=== PATIENT | female | born 1965 ===

== ENCOUNTER 2021-06-19 23:39 | Emergency (ER) | payer OTHER, SELFPAY ==
[2021-06-19 23:57] VITALS: BP 151/73; PULSE 99; RESP 18; TEMP 37.1; O2SAT 100; BMI 33.6
[2021-06-20 02:00] VITALS: BP 120/68; PULSE 66; RESP 16; TEMP 36.8; O2SAT 96
--- NOTE | 2021-06-20 04:20 | ECG_ITS ---
Test Reason : high bp Blood Pressure : / mmHG Vent. Rate : 070 BPM Atrial Rate : 070 BPM P-R Int : 162 ms QRS Dur : 084 ms QT Int : 426 ms P-R-T Axes : 053 -27 056 degrees QTc Int : 460 ms Normal sinus rhythm Normal ECG When compared with ECG of 15-JUL-2018 13:31, No significant change was found Referred By: Generic ED Physician Electronically Signed By:MARYCHUY CISNEROS
[2021-06-20 04:24] VITALS: BP 128/71; PULSE 75; RESP 16; TEMP 36.7; O2SAT 95
[2021-06-20 04:39] LABS: MANUAL DIFF FLAG NO
[2021-06-20 04:40] LABS: Appearance Urine CLEAR; Basophils Percent Auto 0.3 % (0-2); Color Urine YELLOW; Eosinophils Absolute Auto 0.2 X10*3/uL (0.0-0.4); Eosinophils Percent Auto 2.1 % (0-4); Glucose Urine UA NEG (NEG); Hematocrit 36.9 % (37.0-47.0); Hemoglobin 11.7 g/dl (12.0-16.0); Imm Gran Abs Auto 0.02 X10*3/uL (0.00-0.03); Imm Gran Pct Auto 0.2 % (0.0-0.4); Leukocyte Esterase Urine NEG (NEG); Lymphocytes Absolute Auto 3.6 X10*3/uL (1.2-4.9); Lymphocytes Percent Auto 38.3 % (20-40); Mean Corpuscular HGB Conc 31.7 g/dl (31.0-35.0); Mean Corpuscular Hemoglobin 26.6 pg (27.0-33.0); Mean Corpuscular Volume 83.9 fL (80.0-98.0); Monocytes Absolute Auto 0.6 X10*3/uL (0.1-1.2); Monocytes Percent Auto 6.8 % (2-11); Neutrophils Absolute Auto 4.9 x10*3/uL (2.0-8.3); Neutrophils Percent Auto 52.3 % (45-73); Nitrite Urine NEG (NEG); Platelet Count 248 X10*3/uL (160-400); UACC Culture Trigger NO; Urine Blood 1+ (NEG); Urine Ketones NEG (NEG); Urine Protein NEG (NEG-TRACE); White Blood Count 9.4 X10*3/uL (4.8-10.8)
[2021-06-20 04:45] LABS: Prothrombin Time 11.3 SEC (9.9-13.0)
[2021-06-20 04:48] LABS: Bacteria Urine 2+ /LPF; Calcium Oxalate Crystals Urine 3+ /LPF; Mucus Urine 1+ /LPF; RBC Urine 0-2 /HPF (0); Squamous Epithelial Cell Urine 1+ /LPF; WBC Urine 0-2 /HPF (0-4)
[2021-06-20 04:59] LABS: Alanine Aminotransferase 26 U/L (0-31); Alkaline Phosphatase 111 U/L (39-117); Anion Gap 13 (12-20); Aspartate Amino Transferase 18 U/L (5-31); Bilirubin Total 0.3 mg/dL (0.0-1.0); Blood Urea Nitrogen 12 mg/dL (9-16); Calcium 9.2 mg/dL (8.4-10.2); Carbon Dioxide 24 mmol/L (22-29); Chloride 107 mmol/L (96-108); Estimated Glomerular Filt Rate > 60; Glucose Random 113 mg/dL (60-115); Sodium 140 mmol/L (135-145); Total Protein 6.7 g/dL (6.5-8.0)
--- NOTE | 2021-06-20 05:11 | ED_ITS ---
HPI - General Adult General Chief complaint: General Medical Stated complaint: Blood in stool Time Seen by Provider: 06/20/21 05:11 Source: patient and family (Daughter) Mode of arrival: ambulatory History of Present Illness HPI narrative: 56-year-old female with complaints rectal bleeding since Sunday, patient denies any history of constipation and states that she has had painless rectal bleeding with defecation denies any swelling of underwear. Patient denies any abdominal pain, nausea, vomiting. Patient does state that she has an appointment with GI this for chronic nausea after surgery for her hiatal hernia. She denies any dizziness or palpitations at this time. In addition, patient complaints ?tailbone pain and denies any numbness/tingling/weakness into either lower extremity. Related Data Allergies Allergy/AdvReac Type Severity Reaction Status Date / Time amoxicillin [From AUGMENTIN] Allergy Mild HIVES Unverified 10/23/19 18:46 azithromycin [From ZITHROMAX] Allergy Mild HIVES Unverified 10/23/19 18:46 clavulanic acid Allergy Mild HIVES Unverified 10/23/19 18:46 [From AUGMENTIN] doxycycline [DOXYCYCLINE] Allergy Mild HIVES Unverified 10/23/19 18:46 oxycodone [OXYCODONE] Allergy Mild CHEST PAIN Unverified 10/23/19 18:46 Penicillins [PCN] Allergy Mild HIVES Unverified 10/23/19 18:46 acetaminophen [From VICODIN] Allergy Unknown UNKNOWN Unverified 10/23/19 18:46 hydrocodone [From VICODIN] Allergy Unknown UNKNOWN Unverified 10/23/19 18:46 Review of Systems Review of Systems: Pertinent positives and negatives as stated in HPI 10 point review of systems is otherwise negative. [facility] Past Medical History Source: nursing notes reviewed Social History Social History Advance Directives: No Physical Exam ED Vital Signs: Vital Signs - 24 hr 06/19/21 23:57 06/20/21 02:00 06/20/21 04:24 Temperature 98.7 F 98.2 F 98.0 F Pulse Rate 99 66 75 Respiratory Rate 18 16 16 Blood Pressure 151/73 H 120/68 128/71 Pulse Oximetry 100 96 95 06/20/21 06:00 Temperature 98.0 F Pulse Rate 74 Respiratory Rate 16 Blood Pressure 117/72 Pulse Oximetry 97 BMI result Body Mass Index 33.6 VITAL SIGNS: Reviewed. GENERAL: Well developed, well nourished, in no acute distress. HEAD: Normocephalic/atraumatic EYES: PERRLA, EOMI, no conjunctival pallor EARS: Ext canals without abnormality OROPHARYNX: no oral lesions noted, posterior pharynx clear LUNGS: Normal breath sounds. No adventitious sounds or accessory muscle use. SpO2<100> CARDIOVASCULAR: Regular rate and rhythm without noted murmurs ABDOMEN: Soft, non-tender, non-distended with bowel sounds. RECTAL: There are no external hemorrhoids, brown stool, good rectal tone. SKIN: Inspection of the skin reveals no rashes NEUROLOGIC: Alert and oriented x 4. Strength and sensation to light touch were grossly intact x 4. Course Course Course Narrative: 56-year-old female with history and clinical presentation after review of all investigations consistent with likely internal hemorrhoids with the painless bleeding. Patient is currently asymptomatic for anemia although is noted to have a mild decreased from baseline on her hemoglobin. Patient is otherwise reassured that she can follow-up with her GI appointment, she also has an appointment provided by her primary care provider for this Sunday to further evaluate her tailbone pain with a pelvic CT. Patient was given strict return precautions regarding the amount of bleeding as well as whether not she has pain. Medical Decision Making Lab Data Result diagrams: 06/20/21 04:35 06/20/21 04:35 Labs: Lab Results 06/20/21 06/20/21 06/20/21 Range/Units 04:35 04:35 04:35 WBC 9.4 (4.8-10.8) X10*3/uL RBC 4.40 (4.20-5.50) X10*6/uL Hgb 11.7 L (12.0-16.0) g/dl Hct 36.9 L (37.0-47.0) % MCV 83.9 (80.0-98.0) fL MCH 26.6 L (27.0-33.0) pg MCHC 31.7 (31.0-35.0) g/dl RDW 14.0 (11.0-16.0) % Plt Count 248 (160-400) X10*3/uL MPV 11.0 (9.4-12.3) fL Immature Gran % (Auto) 0.2 (0.0-0.4) % Neut % (Auto) 52.3 (45-73) % Lymph % (Auto) 38.3 (20-40) % [place] % (Auto) 6.8 (2-11) % Eos % (Auto) 2.1 (0-4) % Baso % (Auto) 0.3 (0-2) % Lymph # (Auto) 3.6 (1.2-4.9) X10*3/uL [place] # (Auto) 0.6 (0.1-1.2) X10*3/uL Eos # (Auto) 0.2 (0.0-0.4) X10*3/uL Baso # (Auto) 0.0 (0.0-0.2) X10*3/uL Abs Immat Gran (auto) 0.02 (0.00-0.03) X10*3/uL Absolute Neuts (auto) 4.9 (2.0-8.3) x10*3/uL Absolute Nucleated RBC 0.000 (0.0-0.012) X10*3/uL Nucleated RBC % (auto) 0.0 (0.0-0.2) /100WBC PT 11.3 (9.9-13.0) SEC INR 1.0 (0.9-1.1) Sodium (135-145) mmol/L Potassium (3.3-5.1) mmol/L Chloride (96-108) mmol/L Carbon Dioxide (22-29) mmol/L Anion Gap (12-20) BUN (9-16) mg/dL Creatinine (0.5-1.4) mg/dL Estim Creat Clear Calc Estimated GFR Random Glucose (60-115) mg/dL Calcium (8.4-10.2) mg/dL Total Bilirubin (0.0-1.0) mg/dL AST (5-31) U/L ALT (0-31) U/L Alkaline Phosphatase (39-117) U/L Total Protein (6.5-8.0) g/dL Albumin (3.5-5.0) g/dL Urine Color YELLOW Urine Appearance CLEAR Urine pH 6.0 (5.0-8.0) Ur Specific [place] 1.020 (1.005-1.025) Urine Protein NEG (NEG-TRACE) MG/DL Urine Glucose (UA) NEG (NEG) MG/DL Urine Ketones NEG (NEG) MG/DL Urine Blood 1+ H (NEG) Urine Nitrite NEG (NEG) Ur Leukocyte Esterase NEG (NEG) Urine RBC 0-2 (0) /HPF Urine WBC 0-2 (0-4) /HPF Ur Squamous Epith Cells 1+ /LPF Calcium Oxalate Crystal 3+ /LPF Urine Bacteria 2+ /LPF Urine Mucus 1+ /LPF 06/20/21 Range/Units 04:35 WBC (4.8-10.8) X10*3/uL RBC (4.20-5.50) X10*6/uL Hgb (12.0-16.0) g/dl Hct (37.0-47.0) % MCV (80.0-98.0) fL MCH (27.0-33.0) pg MCHC (31.0-35.0) g/dl RDW (11.0-16.0) % Plt Count (160-400) X10*3/uL MPV (9.4-12.3) fL Immature Gran % (Auto) (0.0-0.4) % Neut % (Auto) (45-73) % Lymph % (Auto) (20-40) % [place] % (Auto) (2-11) % Eos % (Auto) (0-4) % Baso % (Auto) (0-2) % Lymph # (Auto) (1.2-4.9) X10*3/uL [place] # (Auto) (0.1-1.2) X10*3/uL Eos # (Auto) (0.0-0.4) X10*3/uL Baso # (Auto) (0.0-0.2) X10*3/uL Abs Immat Gran (auto) (0.00-0.03) X10*3/uL Absolute Neuts (auto) (2.0-8.3) x10*3/uL Absolute Nucleated RBC (0.0-0.012) X10*3/uL Nucleated RBC % (auto) (0.0-0.2) /100WBC PT (9.9-13.0) SEC INR (0.9-1.1) Sodium 140 (135-145) mmol/L Potassium 4.0 (3.3-5.1) mmol/L Chloride 107 (96-108) mmol/L Carbon Dioxide 24 (22-29) mmol/L Anion Gap 13 (12-20) BUN 12 (9-16) mg/dL Creatinine 0.74 (0.5-1.4) mg/dL Estim Creat Clear Calc 85.0 Estimated GFR > 60 Random Glucose 113 (60-115) mg/dL Calcium 9.2 (8.4-10.2) mg/dL Total Bilirubin 0.3 (0.0-1.0) mg/dL AST 18 (5-31) U/L ALT 26 (0-31) U/L Alkaline Phosphatase 111 (39-117) U/L Total Protein 6.7 (6.5-8.0) g/dL Albumin 4.0 (3.5-5.0) g/dL Urine Color Urine Appearance Urine pH (5.0-8.0) Ur Specific [place] (1.005-1.025) Urine Protein (NEG-TRACE) MG/DL Urine Glucose (UA) (NEG) MG/DL Urine Ketones (NEG) MG/DL Urine Blood (NEG) Urine Nitrite (NEG) Ur Leukocyte Esterase (NEG) Urine RBC (0) /HPF Urine WBC (0-4) /HPF Ur Squamous Epith Cells /LPF Calcium Oxalate Crystal /LPF Urine Bacteria /LPF Urine Mucus /LPF ECG Data Attestation: I personally reviewed and interpreted this ECG as follows: Prior ECG tracings: available for review Interpretation: NSR, HR-70, no STEMI, [place]/QRS/QTC is within normal limits. Discharge Plan Discharge Clinical Impression: Bleeding hemorrhoid Patient Disposition: Home, Self-Care Instructions: Hemorrhoids (ED) Additional Instructions: 1. Resume all home medications as prescribed. 2. Keep your scheduled appointments with GI and the CT scan. 3. Follow-up with your primary care provider in the next 1-2 days for re- evaluation. Return to the ER for worsening rectal bleeding/rectal pain and/or abdominal pain. Referrals: Physician,Unknown J [Primary Care Provider] -
[2021-06-20 06:00] VITALS: BP 117/72; PULSE 74; RESP 16; TEMP 36.7; O2SAT 97
[2021-06-20 07:36] LABS: OBS Int Ctl Valid YES; OBS1 NEGATIVE (NEGATIVE)
== END 2021-06-20 07:52 | disposition home or self-care (01) ==
PROVIDERS: Emergency Provider Student in an Organized Health Care Education/Training Program
DX: K64.8 Other hemorrhoids (principal); D64.9 Anemia, unspecified; M53.3 Sacrococcygeal disorders, not elsewhere classified
CPT/HCPCS: 36415; 80053; 81001; 82272; 85025; 85610; 93005; 99283

== ENCOUNTER 2021-10-06 20:39 | Emergency (ER) | payer OTHER, SELFPAY ==
--- NOTE | ~2021-10-06 | XR_ITS ---
EXAMINATION: XR HIP, RIGHT CLINICAL INFORMATION: Right hip and groin pain. COMPARISON: None TECHNIQUE: Single AP view the pelvis Two views of the right hip. FINDINGS: No acute fracture or dislocation. Pelvic ring intact. Mild bilateral sacroiliac arthrosis. Mild bilateral hip joint space narrowing. Small acetabular marginal osteophytes. Soft tissues unremarkable. XR/XR hip RT w [id number] IMPRESSION: No acute fracture or dislocation.
--- NOTE | ~2021-10-06 | CT_ITS ---
EXAMINATION: CT PELVIS WITHOUT CONTRAST CLINICAL INFORMATION: Rule out right femoral hernia COMPARISON: None TECHNIQUE: Helical scanning was performed with submillimeter collimation through the pelvis. Sagittal and coronal multiplanar 2-D reconstructions were obtained. This CT examination was performed using dose optimization techniques as appropriate, variously including the following: *Automated exposure control *Adjustment of mA and/or kV according to patient size (this includes techniques or standardized protocols for targeted exams where dose is matched to indication/reason for exam; i.e. extremities or head) *Use of iterative reconstruction technique DLP: 499 mGy-cm FINDINGS: No femoral or inguinal hernias. Tiny umbilical hernia. Imaged gastrointestinal tract unremarkable. Normal appendix. Hysterectomy. No adnexal abnormalities. No lymphadenopathy. No pelvic free fluid. No acute or suspicious osseous abnormalities. Previous laminectomies from L4-S3. Pelvic ring intact. Bilateral hip joints unremarkable. CT/CT pelvis wo IV con IMPRESSION: No femoral or inguinal hernia. Tiny umbilical hernia.
[2021-10-06 20:55] VITALS: BP 121/81; PULSE 75; RESP 18; TEMP 36.3; O2SAT 97; BMI 34.0
[2021-10-06 21:37] LABS: Appearance Urine Clear; Color Urine Yellow; Glucose Urine UA Negative (Negative); Leukocyte Esterase Urine Negative (Negative); Nitrite Urine Negative (Negative); Specific Gravity - Urine <= 1.005 (1.005-1.025); Urine Blood Negative (Negative); Urine Ketones Negative (Negative); Urine Protein Negative (Neg-Trace)
--- NOTE | 2021-10-07 02:15 | ED.GENADULT ---
HPI - General Adult General Chief complaint: General Medical Stated complaint: groan pain Time Seen by Provider: 10/07/21 01:12 Source: patient Mode of arrival: ambulatory Limitations: no limitations History of Present Illness HPI narrative: Patient comes to the emergency room complaining of right-sided groin pain for 5 days. Patient reports that she has been having chronic pain since 2010 but for the last 5 days, it has been getting worse. Patient denies any UTI symptoms, no trauma. Related Data Allergies Allergy/AdvReac Type Severity Reaction Status Date / Time amoxicillin [From AUGMENTIN] Allergy Mild HIVES Unverified 10/23/19 18:46 azithromycin [From ZITHROMAX] Allergy Mild HIVES Unverified 10/23/19 18:46 clavulanic acid Allergy Mild HIVES Unverified 10/23/19 18:46 [From AUGMENTIN] doxycycline [DOXYCYCLINE] Allergy Mild HIVES Unverified 10/23/19 18:46 oxycodone [OXYCODONE] Allergy Mild CHEST PAIN Unverified 10/23/19 18:46 Penicillins [PCN] Allergy Mild HIVES Unverified 10/23/19 18:46 acetaminophen [From VICODIN] Allergy Unknown UNKNOWN Unverified 10/23/19 18:46 hydrocodone [From VICODIN] Allergy Unknown UNKNOWN Unverified 10/23/19 18:46 Review of Systems Review of Systems: Constitutional : No Weight loss, No Fever, No Chills, No Night Sweats, No Fatigue, No Malaise ENT/Mouth : No Hearing loss, No Ear Pain, No Nasal Congestion, No Sinus Pain, No Hoarseness, No sore throat, No Rhinorrhea, No Swallowing Difficulty Eyes: No Eye Pain, No Swelling, No Redness, No Foreign Body, No Discharge, No Vision Changes Cardiovascular : No Chest Pain, No SOB, No Dyspnea on Exertion, No Orthopnea, No Edema, No Palpitations Respiratory : No Cough, No Sputum, No Wheezing, No Smoke Exposure, No Dyspnea Gastrointestinal : No Nausea, No Vomiting, No Diarrhea, No Constipation, No abdominal Pain, No Hematochezia, No Melena Genitourinary : no irregular bleeding, No Dysuria, No Urinary Frequency, No Hematuria, No Urinary Incontinence, No Urgency, No Flank Pain, No Urinary Flow Changes, No Hesitancy Musculoskeletal : Complaining of right-sided groin pain No joint pain, No Myalgias, No Joint Swelling Skin : No Skin Lesions, No rash Neuro : No Weakness, No Numbness, No Paresthesias, No Loss of Consciousness, No Dizziness, No Headache Psych : No Anxiety/Panic, No Depression, No SI/HI/AH/VH, No Social Issues, Heme/Lymph: No Bruising, No Bleeding,No Lymphadenopathy Endocrine : No Polyuria, No Polydipsia, No Temperature Intolerance [facility] Past Medical History Medical History Anxiety with depression Chronic GERD Hyperlipidemia Hypertension Tethered cord syndrome Social History Social History Advance Directives: No Advance Directives Information Provided: Yes Physical Exam ED Vital Signs: Vital Signs - 24 hr 10/06/21 20:55 10/07/21 02:18 Temperature 97.4 F 98.2 F Pulse Rate 75 66 Respiratory Rate 18 18 Blood Pressure 121/81 130/81 Pulse Oximetry 97 97 Oxygen Delivery Method Room Air Room Air BMI result Body Mass Index 34.0 Const Other: Appearance: Alert. Oriented X3. No acute distress. Eyes: Pupils equal, round and reactive to light. ENT: Pharynx normal. Neck: Normal inspection. Neck supple. No lymph nodes noted. No crepitus CVS: Normal heart rate and rhythm. Pulses normal. Normal S1 and S2 Respiratory: No respiratory distress. Breath sounds normal. No Wheezing. No rales Abdomen: Soft and nontender. No rigidity. No distention. Skin: Skin warm and dry. Normal skin color. Normal skin turgor. Extremities: No lower extremity edema. Chronic contracture of the right foot. Pain to palpation over the inguinal area, questionable palpable mass below the inguinal canal on the right side Neuro: Oriented X 3. No motor deficit. No sensory deficit. Moving all extremities. No slurred speech. CN 2 through 12 grossly intact Psych: calm, cooperative, normal affect Course Course Course Narrative: Patient complaining of pain in a specific area in the anterior thigh, approximately 5 cm x 5 cm just below the inguinal area. The whole leg does not hurt. Patient has no lower extremity edema, no pain to palpation in any other area of the leg, DVT not suspected. Hip x-rays are nondiagnostic. No acute fracture or dislocation. Patient does have a soft tissue mildly palpable lump below the right inguinal canal. A CT scan has been ordered to rule out right femoral inguinal hernia. CT scan is negative for inguinal or femoral hernias, patient has a small umbilical hernia, not incarcerated. Patient's pain is likely musculoskeletal. Instructed to follow-up with her primary care physician. Here in the emergency room. Patient received 1 dose of IV morphine. Patient states she has an appointment coming up with her primary care physician in 3 days, takes naproxen at home for pain. Medical Decision Making Lab Data Labs: Lab Results 10/06/21 Range/Units 21:15 Urine Color Yellow Urine Appearance Clear Urine pH 7.0 (5.0-9.0) Ur Specific [place] <= 1.005 (1.005-1.025) Urine Protein Negative (Neg-Trace) mg/dL Urine Glucose (UA) Negative (Negative) mg/dL Urine Ketones Negative (Negative) mg/dL Urine Blood Negative (Negative) Urine Nitrite Negative (Negative) Ur Leukocyte Esterase Negative (Negative) Discharge Plan Discharge Clinical Impression: Leg pain Patient Disposition: Home, Self-Care Instructions: Leg Pain (ED) Additional Instructions: Please follow-up with your primary care physician tomorrow. If you have any worsening or new symptoms, please return to the emergency room or call 911
[2021-10-07 02:18] VITALS: BP 130/81; PULSE 66; RESP 18; TEMP 36.8; O2SAT 97
[2021-10-07] MEDS: Morphine Sulfate 4 MG/ML CARTRIDGE IVPUSH (03:58)
== END 2021-10-07 04:27 | disposition home or self-care (01) ==
PROVIDERS: Emergency Provider Emergency Medicine
DX: M79.604 Pain in right leg (principal); R10.30 Lower abdominal pain, unspecified; R10.2 Pelvic and perineal pain; M25.551 Pain in right hip; Z79.899 Other long term (current) drug therapy
CPT/HCPCS: 72192; 73502; 81003; 96374; 99283; 99284; J2270

== ENCOUNTER 2022-09-23 21:22 | Emergency (ER) | payer OTHER, SELFPAY ==
--- NOTE | ~2022-09-23 | XR_ITS ---
EXAMINATION: XR HAND, RIGHT CLINICAL INFORMATION: Injury. COMPARISON: None available. TECHNIQUE: Four views of the right hand FINDINGS: RIGHT HAND: Mild diffuse osteopenia. The bones and soft tissues are normal. No fracture. Alignment is anatomic. Joint spaces are maintained. No erosions or soft tissue calcifications. XR/XR hand wrist RT IMPRESSION: Mild diffuse osteopenia. No radiographic evidence of any displaced fracture or subluxation or dislocation of the right hand.
[2022-09-23 21:40] VITALS: BP 121/82; PULSE 74; RESP 18; TEMP 37.1; O2SAT 97; BMI 31.4
--- NOTE | 2022-09-24 00:46 | ED.EXTPRO ---
HPI - Extremity Problem General Chief complaint: Extremity Injury, Upper Stated complaint: right hand inj Time Seen by Provider: 09/24/22 00:20 Source: patient Mode of arrival: ambulatory Limitations: no limitations History of Present Illness HPI Narrative: 57 year old female presents to the emergency department with CC of right wrist pain since this afternoon. The patient ambulates with a cane and while holding leash on her dog, the dog yanked forward, injuring her right wrist. She reports pain is constant and diffuse across right wrist. She did not fall to the ground and denies any other injuries Related Data Allergies Allergy/AdvReac Type Severity Reaction Status Date / Time amoxicillin [From AUGMENTIN] Allergy Mild HIVES Unverified 10/23/19 18:46 azithromycin [From ZITHROMAX] Allergy Mild HIVES Unverified 10/23/19 18:46 clavulanic acid Allergy Mild HIVES Unverified 10/23/19 18:46 [From AUGMENTIN] doxycycline [DOXYCYCLINE] Allergy Mild HIVES Unverified 10/23/19 18:46 oxycodone [OXYCODONE] Allergy Mild CHEST PAIN Unverified 10/23/19 18:46 Penicillins [PCN] Allergy Mild HIVES Unverified 10/23/19 18:46 acetaminophen [From VICODIN] Allergy Unknown UNKNOWN Unverified 10/23/19 18:46 hydrocodone [From VICODIN] Allergy Unknown UNKNOWN Unverified 10/23/19 18:46 Review of Systems Musculoskeletal: Musculoskeletal: Reports no additional musculoskeletal complaints, Reports arthralgias, Reports joint swelling and Reports limited range of motion PMFSH Past Medical History Medical History Anxiety with depression Chronic GERD Hyperlipidemia Hypertension Tethered cord syndrome Social History Social History Advance Directives: No Advance Directives Information Provided: Yes Physical Exam Vital Signs: Vital Signs: Last Vital Signs Temp 98.7 F 09/23/22 21:40 Pulse 74 09/23/22 21:40 Resp 18 09/23/22 21:40 BP 121/82 09/23/22 21:40 Pulse Ox 97 09/23/22 21:40 O2 Del Method Room Air 09/23/22 21:40 BMI result Body Mass Index 31.4 Const: General: cooperative, healthy appearing, comfortable, no acute distress and well developed HEENT: Head: Yes normocephalic and Yes atraumatic Resp: Effort & Inspection: normal respiratory effort and no respiratory distress Extrem: Other: The patient is tender to most of the right wrist but primarily the radial side and is tender over the scaphoid. No open wounds or lesions Right upper extremity: normal capillary refill and wrist (Unable to flex right wrist); ROM limited (right wrist) Medical Decision Making Medical Decision Making MDM Narrative: X-ray shows mild osteopenia but no evidence of fracture. The patient is tender over the scaphoid. Therefore she was encouraged to follow-up with PCP and orthopedics for repeat x-ray in approximately 7 days if her pain does not resolve. She was put in a right wrist splint Differential Diagnosis Differential Diagnoses: The differential diagnosis associated with the presentation includes Sprain Fracture Hematoma Tendonitis Carpal tunnel Independent Interpretation I performed an independent interpretation of an: Plain X-Ray (No obvious fracture of the right wrist) Radiology Impression Discussion of test interpretation with radiology: I have reviewed the radiologist's reading. Radiologist Impression: Mild osteopenia without obvious fracture Discharge Plan Discharge Clinical Impression: Right wrist sprain Patient Disposition: Home, Self-Care Instructions: Wrist Sprain (ED) Additional Instructions: Your x-ray did not show any obvious fractures. However you have tenderness over a small bone call the scaphoid bone. Some small fractures can be hard to see in this You should repeat an x-ray in approximately 7 days if you are still having pain and or swelling. You cannot follow-up your primary doctor, you may follow-up with Dr. Moe, orthopedics Oriana Carvalho for the pain Referrals: Shaquille Moe MD [Physician] - (right wrist sprain. negative x-ray. ? scaphoid involvement. tenderness of the scaphoid) Interventions: ED Discharge Assessment Last Done: 09/24/22 00:56 Discharge Date/Time: 09/24/22 00:58
--- NOTE | 2022-09-24 00:56 | PC.NURSE ---
machine tool technology instructor at bedside for wrist splint.
== END 2022-09-24 00:58 | disposition home or self-care (01) ==
PROVIDERS: Emergency Provider Internal Medicine
DX: S63.501A Unspecified sprain of right wrist, initial encounter (principal); X50.1XXA Overexertion from prolonged static or awkward postures, initial encounter; Y93.K1 Activity, walking an animal; Y92.414 Local residential or business street as the place of occurrence of the external cause; Y99.9 Unspecified external cause status
CPT/HCPCS: 73110; 73130; 99282; 99283

== ENCOUNTER 2022-10-19 10:28 | Outpatient (AMB) | payer OTHER, SELFPAY ==
--- NOTE | 2022-10-19 10:36 | A.OFFVIS_ITS ---
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 She had x rays updated in clinic today. She wears a wrist brace all the time. She had surgery on her wrist at 20 years old for her ligaments. She reports an injury with her dog pulling her on 09/23/22. Allergies amoxicillin [From AUGMENTIN] Allergy (Mild, Unverified 10/19/22 10:38) HIVES azithromycin [From ZITHROMAX] Allergy (Mild, Unverified 10/19/22 10:38) HIVES clavulanic acid [From AUGMENTIN] Allergy (Mild, Unverified 10/19/22 10:38) HIVES doxycycline [DOXYCYCLINE] Allergy (Mild, Unverified 10/19/22 10:38) HIVES oxycodone [OXYCODONE] Allergy (Mild, Unverified 10/19/22 10:38) CHEST PAIN Penicillins [PCN] Allergy (Mild, Unverified 10/19/22 10:38) HIVES acetaminophen [From VICODIN] Allergy (Unknown, Unverified 10/19/22 10:38) UNKNOWN hydrocodone [From VICODIN] Allergy (Unknown, Unverified 10/19/22 10:38) UNKNOWN Medication List - Last Reconciled 10/19/22 by Estrella Cheng RN baclofen 10 mg PO DAILY fluticasone propionate 50 mcg/actuation (Flonase Allergy Relief) 1 spray intranasal DAILY gabapentin 300 mg PO DAILY hydroxyzine HCl 50 mg PO BEDTIME ipratropium-albuterol 20-100 mcg/actuation (Combivent Respimat) 1 puff inhalat ion Q6H linaclotide (Linzess) 72 mcg PO DAILY lisinopril 10 mg PO DAILY loratadine (Allergy Relief (loratadine)) 10 mg PO DAILY naproxen 500 mg PO BID ondansetron 4 mg PO Q8H oxybutynin chloride 5 mg PO BID venlafaxine ER 150 mg PO DAILY HPI HPI Comments History of Present Illness Details Uses cane or walker for ambulation, history of tethered cord syndrome. Right leg weaker side. History of spasticity, gets Botox injections, on baclofen and gabapentin. 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 A month ago, pulled while holding dog's leash on right hand. Did not fall. ED xrays and today's xrays no fracture. Feels tingling on fingers on right. Pain on bottom of right thumb, along the tendons. History ligament surgery 20 years ago, right hand/wrist. Treatment done so far: wrist brace [facility] Medical History (Updated 10/19/22 @ 11:15 by Ghazala Hurd MD) De Quervain's tenosynovitis, right Anxiety with depression Chronic GERD Tethered cord syndrome Hypertension Hyperlipidemia Review of Systems Const All systems reviewed & are unremarkable except as noted in HPI and below Physical Exam Constitutional: Patient appears to be in no acute distress. MSK: Inspection reveals appropriate head and neck positioning. Cervical ROM was full. Spurling's sign negative. Bilateral shoulder ROM WNL. No ligamentous laxity or crepitance. No increased effusion. Hawkin's test is negative. No intrinsic hand weakness noted. No atrophy noted. Shiv test positive right. Carpal compression test positive right wrist. Tinel sign negative. Strength is 5/5 in all muscle groups tested. No increased tone noted. Results Reviewed Results Reviewed: I independently reviewed the results of the following: right wrist/hand xray done today did not show obvious fracture. Await official reading. X-ray done in the ED 09/23/2022 did not show fractures. EXAMINATION: 09/23/2022 XR HAND, RIGHT CLINICAL INFORMATION: Injury. COMPARISON: None available. TECHNIQUE: Four views of the right hand FINDINGS: RIGHT HAND: Mild diffuse osteopenia. The bones and soft tissues are normal. No fracture. Alignment is anatomic. Joint spaces are maintained. No erosions or soft tissue calcifications. XR/XR hand wrist RT IMPRESSION: I reviewed records from the following: ER notes Assessment & Plan Assessment & Plan (1) De Quervain's tenosynovitis, right: Code(s): M65.4 - Radial styloid tenosynovitis [de Quervain] (2) Hand numbness: Code(s): R20.0 - Anesthesia of skin (3) Right wrist injury: Code(s): S69.91XA - Unspecified injury of right wrist, hand and finger(s), initial encounter Plan Suspect she has right de Quervain tenosynovitis. We will put her on a thumb spica splint. She has a wrist splint which is more appropriate for nighttime use, for prevention of Carpal Tunnel Syndrome. Patient advised. She likes to knit which is still okay as long as she has enough rest breaks in between. We will schedule her for EMG. Assessment and plan discussed with patient, and patient was agreeable. All que stions were answered thoroughly. Ghazala Hurd MD, GLENN Board Certified, [place] Board [employer] Medicine and Rehabilitation (ABPMR) Board Certified, [place] Board [employer] Electrodiagnostic Medicine (ABEM) Orders: Orders XR hand wrist RT Today S69.91XA - Unspecified injury of right wrist, hand and finger(s), initial encounter NE electromyogram (EMG) Today R20.0 - Anesthesia of skin, S69.91XA - Unspecified injury of right wrist, hand and finger(s), initial encounter NE nerve conduction velocity Today R20.0 - Anesthesia of skin Coding Level of Care Code New Pt Level 4 (61172) Diagnoses De Quervain's tenosynovitis, right M65.4 Hand numbness R20.0 Right wrist injury S69.91XA
== END 2022-10-19 11:20 | disposition home or self-care (01) ==
PROVIDERS: Visit Provider Physical Medicine & Rehabilitation
DX: M65.4 Radial styloid tenosynovitis [de Quervain] (principal); R20.0 Anesthesia of skin; S69.91XA Unspecified injury of right wrist, hand and finger(s), initial encounter
CPT/HCPCS: 99204

== ENCOUNTER 2022-10-19 10:28 | Outpatient (REF) | payer OTHER, SELFPAY ==
--- NOTE | ~2022-10-19 | XR_ITS ---
EXAMINATION: XR WRIST CLINICAL INFORMATION: COMPARISON: 09/23/2022 TECHNIQUE: PA, lateral, and oblique views of the right wrist. Please note that the distal aspects of the digits are incompletely imaged on some views. FINDINGS: Moderate degenerative changes first carpometacarpal joint with joint space narrowing and hypertrophic change. Ulnar minus variance. Possible subtle cortical step-off along the distal radius concerning for nondisplaced fracture. Subtle calcification/ossific fragment in the soft tissues along the distal aspect of the radius and ulna was not clearly visualized on the prior exam, possibly representing a fracture fragment. XR/XR hand wrist RT IMPRESSION: Possible subtle cortical step-off along the distal radius concerning for nondisplaced fracture. Subtle calcification/ossific fragment in the soft tissues along the distal aspect of the radius and ulna was not clearly visualized on the prior exam, possibly representing a fracture fragment. Additional imaging with CT scan or MRI recommended for further evaluation. This study was presented today 10/23/2022 at 10:27 AM for interpretation. [facility] staff will provide results to referring provider at this time.
== END 2022-10-19 10:29 | disposition home or self-care (01) ==
LOC: HO.HOSX 10:28
PROVIDERS: Visit Provider Physical Medicine & Rehabilitation
DX: S69.91XA Unspecified injury of right wrist, hand and finger(s), initial encounter (principal); M65.4 Radial styloid tenosynovitis [de Quervain]; R20.2 Paresthesia of skin
CPT/HCPCS: 73110; 73130

== ENCOUNTER 2022-11-02 11:02 | Outpatient (AMB) | payer OTHER, SELFPAY ==
--- NOTE | 2022-11-02 11:05 | A.OFFVIS_ITS ---
Intake Vital Signs 11/02/22 11:10 Height 5 ft 4 in Weight 183 lb BMI 31.4 Intake Visit Reasons: New Prob- B/L Hip pain Intake Note: Ghazala is a 57 year old female who presets today as a new patient for a evaluation of her bilateral hip pain. Patient reports ongoing pain for about a year. She state that her left hip is worse than the right hip. Pain is near the groin area for both hips. Hx of injection on the left hip with mild relief. She states that her pain is worse when sitting down and walking. Allergies amoxicillin [From AUGMENTIN] Allergy (Mild, Verified 11/02/22 11:09) HIVES azithromycin [From ZITHROMAX] Allergy (Mild, Verified 11/02/22 11:09) HIVES clavulanic acid [From AUGMENTIN] Allergy (Mild, Verified 11/02/22 11:09) HIVES doxycycline [DOXYCYCLINE] Allergy (Mild, Verified 11/02/22 11:09) HIVES oxycodone [OXYCODONE] Allergy (Mild, Verified 11/02/22 11:09) CHEST PAIN Penicillins [PCN] Allergy (Mild, Verified 11/02/22 11:09) HIVES acetaminophen [From VICODIN] Allergy (Unknown, Verified 11/02/22 11:09) UNKNOWN hydrocodone [From VICODIN] Allergy (Unknown, Verified 11/02/22 11:09) UNKNOWN HPI HPI Comments History of Present Illness Details Uses cane or walker for ambulation, history of tethered cord syndrome. Right leg weaker side. History of spasticity, gets Botox injections, on baclofen and gabapentin. 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 A month ago prior to 1st consult, right arm pulled while holding dog's leash on right hand. Did not fall. ED xrays done report no fracture. She reported having tingling on fingers on right. Pain on bottom of right thumb, along the tendons. History of ligament surgery 20 years ago, right hand/wrist. Put her on a thumb spica splint. X-ray done on day of consult reported none displays possible distal radius fracture. CT scan has been ordered which is not scheduled until 11/21/2022. She tells me today that the pain is gone, 0/10. She feels much better. She has been wearing the thumb spica splint every day, all day except for showers. And she has been wearing a wrist splint for carpal tunnel at night. She is here today for a separate issue of left hip pain. She used to follow orthopedics in [place]. Sounds like she had intra-articular injection done which did not help. Pain is under lateral hip, not the groin. It radiates down to the thigh or knee. Denies any numbness or weakness on left foot. X-rays done in outside hospital reported DJD and trochanteric spurs. She wants to transfer her care here. [facility] Medical History (Updated 11/02/22 @ 12:02 by Ghazala Hurd MD) De Quervain's tenosynovitis, right Anxiety with depression Chronic GERD Tethered cord syndrome Hypertension Hyperlipidemia Social History (Updated 11/02/22 @ 11:10 by Julissa Harding) Alcohol intake: never Patient Tobacco Use Status: Never used Tobacco Current occupational status: disabled Physical Exam Vital Signs: BMI result Body Mass Index 31.4 Constitutional: Patient appears to be in no acute distress. MSK: No intrinsic hand weakness noted. No atrophy noted. Shiv test negative today. No warmth, redness or swelling on right hand or wrist. She has now able to flex on IP joints, without triggering or locking or pain. Left greater trochanter tender. SI joints nontender. Lumbar paraspinals nontender. No tenderness or mass palpable on left groin. 5/5 strength on bilateral upper and lower extremities. Office Procedures Joint Injection/Drain Joint Injection/Drain Details: Consent obtained. Patient lies on right unaffected side with left lower leg flexed and upper leg extended. Tender area over the left greater trochanter is identified and marked. Area is cleansed with betadine solution. Using a 25 gauge needle, 2 remove all field ml of 2% lidocaine is injected, with the needle perpendicular to center of tender area. Then, using a spinal needle, 40 mg Kenalog and 3 mL 2% lidocaine is injected perpendicularly at center of tender area and slightly touching bone of greater trochanter. Patient tolerated procedure well without complications. Post-injection instructions given. Primary Site: other (Left greater trochanter) Injected: 40 mg of, Kenalog and other (5 mL 2% lidocaine) Procedure: The patient tolerated the procedure well Coding 80180 - Large joint Procedure code (CPT) selection complete Results Reviewed Results Reviewed: 11/02/22 11:23 Lidocaine HCl 2 % MPF [Xylocaine 2 % MPF] 5 ml .ROUTE .STK-MED ONE 11/02/22 11:24 Triamcinolone Acetonide [Kenalog-40] 40 mg .ROUTE .STK-MED ONE EXAMINATION: XR WRIST CLINICAL INFORMATION: COMPARISON: 09/23/2022 TECHNIQUE: PA, lateral, and oblique views of the right wrist. Please note that the distal aspects of the digits are incompletely imaged on some views. FINDINGS: Moderate degenerative changes first carpometacarpal joint with joint space narrowing and hypertrophic change. Ulnar minus variance. Possible subtle cortical step-off along the distal radius concerning for nondisplaced fracture. Subtle calcification/ossific fragment in the soft tissues along the distal aspect of the radius and ulna was not clearly visualized on the prior exam, possibly representing a fracture fragment. XR/XR hand wrist RT IMPRESSION: Possible subtle cortical step-off along the distal radius concerning for nondisplaced fracture. Subtle calcification/ossific fragment in the soft tissues along the distal aspect of the radius and ulna was not clearly visualized on the prior exam, possibly representing a fracture fragment. Additional imaging with CT scan or MRI recommended for further evaluation. This study was presented today 10/23/2022 at 10:27 AM for interpretation. [facility] staff will provide results to referring provider at this time. EXAMINATION: XR HIP, RIGHT CLINICAL INFORMATION: Right hip and groin pain. COMPARISON: None TECHNIQUE: Single AP view the pelvis Two views of the right hip. FINDINGS: No acute fracture or dislocation. Pelvic ring intact. Mild bilateral sacroiliac arthrosis. Mild bilateral hip joint space narrowing. Small acetabular marginal osteophytes. Soft tissues unremarkable. XR/XR hip RT w [id number] IMPRESSION: No acute fracture or dislocation. Assessment & Plan Assessment & Plan (1) Distal radial fracture: Code(s): S52.509A - Unspecified fracture of the lower end of unspecified radius, initial encounter for closed fracture Plan: Pain and numbness already resolved. Regained strength on intrinsic hand muscles. She has been consistently wearing thumb spica splint for the last 2 weeks. We do not need to put her on a cast. Continue to wear thumb spica splint every day except for showers. Wrist splint at night. Await CT scan scheduled 11/21/2022. (2) Hand numbness: Code(s): R20.0 - Anesthesia of skin Plan: EMG scheduled 11/24/22. (3) Trochanteric bursitis of left hip: Code(s): M70.62 - Trochanteric bursitis, left hip Plan: Lateral hip pain suspected to be trochanteric bursitis. She would like to trial injection today. Patient tolerated procedure well. Plan Assessment and plan discussed with patient, and patient was agreeable. All questions were answered thoroughly. Follow-up after CT and EMG. Ghazala Hurd MD, GLENN Board Certified, [place] Board [employer] Physical Medicine and Rehabilitation (ABPMR) Board Certified, [place] Board [employer] Electrodiagnostic Medicine (ABEM) Orders: Orders AMB Joint Injection/Aspiration Today M70.62 - Trochanteric bursitis, left hip Coding Level of Care Code Est Pt Level 4 (53607) Diagnoses Distal radial fracture S52.509A Hand numbness R20.0 Trochanteric bursitis of left hip M70.62 CPT Codes Coding - 78604 Large joint: 59356 - Large joint ([id number])
[2022-11-02 11:10] VITALS: BMI 31.4
== END 2022-11-02 11:53 | disposition home or self-care (01) ==
PROVIDERS: Visit Provider Physical Medicine & Rehabilitation
DX: M70.62 Trochanteric bursitis, left hip (principal); S52.509A Unspecified fracture of the lower end of unspecified radius, initial encounter for closed fracture; R20.0 Anesthesia of skin
CPT/HCPCS: 20610; 99214

== ENCOUNTER → 2022-11-02 11:02 | Outpatient (BNVA) | payer OTHER, SELFPAY | PROVIDERS: Visit Provider Physical Medicine & Rehabilitation | DX: M70.62 Trochanteric bursitis, left hip (principal); R20.0 Anesthesia of skin; S52.509D Unspecified fracture of the lower end of unspecified radius, subsequent encounter for closed fracture with routine healing | CPT/HCPCS: 20610; 99212; J3301 ==

== ENCOUNTER 2022-11-21 10:33 | Outpatient (REF) | payer OTHER, SELFPAY ==
--- NOTE | ~2022-11-21 | CT_ITS ---
EXAMINATION: CT WRIST WITHOUT CONTRAST, RIGHT CLINICAL INFORMATION: Evaluate for distal radial fracture. Pain. COMPARISON: Right hand/wrist radiographs dated 10/19/2022 and 09/23/2022. TECHNIQUE: Contiguous axial CT images of the right wrist were obtained without contrast. Multiplanar reformats were provided and reviewed. This CT examination was performed using dose optimization techniques as appropriate, variously including the following: *Automated exposure control *Adjustment of mA and/or kV according to patient size (this includes techniques or standardized protocols for targeted exams where dose is matched to indication/reason for exam; i.e. extremities or head) *Use of iterative reconstruction technique DLP: 84 mGy-cm FINDINGS: No fracture or dislocation. No distal radial fracture. Degenerative cystic change within the proximal pole of the capitate. Normal carpal alignment. No concerning lytic or blastic osseous lesion. No significant joint space narrowing or marginal osteophytes. Chondrocalcinosis along the dorsal aspect of the scapholunate articulation as well as along the volar aspect of the middle carpal row and triscaphe joint. No large soft tissue mass or fluid collection. The visualized flexor and extensor tendons are grossly intact; however, evaluation is significantly limited on CT examination. CT/CT wrist RT wo IV con IMPRESSION: 1. No acute fracture or dislocation. 2. Degenerative cystic change within the proximal pole of the capitate. 3. Chondrocalcinosis along the dorsal aspect of the scapholunate articulation as well as along the volar aspect of the middle carpal row and triscaphe joint.
== END 2022-11-21 10:34 | disposition home or self-care (01) ==
LOC: HO.CT 10:33
PROVIDERS: Visit Provider Physical Medicine & Rehabilitation
DX: S52.501A Unspecified fracture of the lower end of right radius, initial encounter for closed fracture (principal)
CPT/HCPCS: 73200

== ENCOUNTER 2022-11-24 10:17 | Outpatient (REF) | payer OTHER, SELFPAY ==
--- NOTE | 2022-11-24 10:20 | EMG_ITS ---
Chief complaint: Right wrist pain, recent fracture, healed Reason for referral: Evaluate for Carpal Tunnel Syndrome Procedure done: Right upper extremity NCS/EMG Precautions and/or limitations: None The limb temperature was monitored continuously and remained between 32-36 degrees C during the performance of the NCS. Nerve Conduction Studies Anti Sensory Summary Table ?Stim Site NR Onset (ms) Norm Onset (ms) Peak (ms) Norm Peak (ms) O-P Amp (?V) Norm O-P Amp Site1 Site2 Delta-0 (ms) Dist (cm) Claudio (m/s) Norm Claudio (m/s) Right Median Anti Sensory (2nd Digit) Wrist ? 2.3 2.9 <3.6 41.4 >10 Wrist 2nd Digit 2.3 14.0 61 Right Radial Anti Sensory (Thumb) Forearm ? 1.6 2.0 <3.1 24.5 Forearm Thumb 1.6 0.0 Right Ulnar Anti Sensory (5th Digit) Wrist ? 1.0 3.2 <3.7 15.9 >15.0 Wrist 5th Digit 1.0 14.0 140 Motor Summary Table ?Stim Site NR Onset (ms) Norm Onset (ms) O-P Amp (mV) Norm O-P Amp iAmp (mV) Amp (1st) (%) Site1 Site2 Delta-0 (ms) Dist (cm) Claudio (m/s) Norm Claudio (m/s) Right Median Motor (Abd Poll Brev) Wrist ? 3.0 <3.9 9.0 >4.5 10.4 100.0 Elbow Wrist 3.3 19.0 58 >45 Elbow ? 6.3 8.2 9.9 91.1 Right Ulnar Motor (Abd Dig Minimi) Wrist ? 2.5 <3.0 10.9 >5 12.6 100.0 B Elbow Wrist 2.8 17.0 61 >45 B Elbow ? 5.3 9.6 11.2 88.1 A Elbow B Elbow 1.2 10.0 83 >45 A Elbow ? 6.5 10.1 11.8 92.7 EMG ?Side Muscle Nerve Root Ins Act Fibs Psw Amp Dur Poly Recrt Int Pat Comment Right 1stDorInt Ulnar C8-T1 Nml Nml Nml Nml Nml 0 Nml Complete Right FlexCarRad Median C6-7 Nml Nml Nml Nml Nml 0 Nml Complete Right Biceps Musculocut C5-6 Nml Nml Nml Nml Nml 0 Nml Complete Right Triceps Radial C6-7-8 Nml Nml Nml Nml Nml 0 Nml Complete Right Deltoid Axillary C5-6 Nml Nml Nml Nml Nml 0 Nml Complete Left 1stDorInt Ulnar C8-T1 Nml Nml Nml Nml Nml 0 Nml Complete Left FlexCarRad Median C6-7 Nml Nml Nml Nml Nml 0 Nml Complete Left Biceps Musculocut C5-6 Nml Nml Nml Nml Nml 0 Nml Complete Left Triceps Radial C6-7-8 Nml Nml Nml Nml Nml 0 Nml Complete Left Deltoid Axillary C5-6 Nml Nml Nml Nml Nml 0 Nml Complete FINDINGS: All motor and sensory nerves tested showed normal latencies, amplitudes and conduction velocities. Concentric needle EMG was performed in selected muscles of the right upper extremity. Study did not reveal signs of electric abnormalities as shown in the table below. IMPRESSION: 1. This is a normal study. 2. There is no electrodiagnostic evidence for median neuropathy, ulnar neuropathy, brachial plexopathy, or cervical radiculopathy. Thank you for your kind referral. Ghazala Hurd MD, GLENN Board Certified, [place] Board [employer] Physical [employer] and Rehabilitation (ABPMR) Board Certified, [place] Board [employer] Electrodiagnostic Medicine (ABEM) CODIN [id number] [facility]
== END 2022-11-24 10:18 | disposition home or self-care (01) ==
LOC: HO.NEURO 10:17
PROVIDERS: Visit Provider Physical Medicine & Rehabilitation
DX: R20.0 Anesthesia of skin (principal); S69.91XA Unspecified injury of right wrist, hand and finger(s), initial encounter
CPT/HCPCS: 95886; 95909

== ENCOUNTER → 2022-11-24 10:20 | Outpatient (BNV) | payer OTHER, SELFPAY | PROVIDERS: Visit Provider Physical Medicine & Rehabilitation | DX: M25.531 Pain in right wrist (principal); M25.532 Pain in left wrist | CPT/HCPCS: 95886; 95909 ==

== ENCOUNTER 2023-02-21 10:19 | Outpatient (AMB) | payer OTHER, SELFPAY ==
--- NOTE | 2023-02-21 10:19 | MHC.OFFVIS ---
Intake Vital Signs 02/21/23 10:20 Height 5 ft 4 in Weight 183 lb BMI 31.4 Intake Visit Reasons: ov- B/L Hip pain Intake Note: Ghazala is a 57 year old female who presents today for a follow up of her bilateral hip pain. She was last seen on 11/02/22 where her left hip was injected. Patienr reports that this injection only provided relief for about 1 month. She explains that her pain has increased Allergies amoxicillin [From AUGMENTIN] Allergy (Mild, Verified 02/21/23 10:20) HIVES azithromycin [From ZITHROMAX] Allergy (Mild, Verified 02/21/23 10:20) HIVES clavulanic acid [From AUGMENTIN] Allergy (Mild, Verified 02/21/23 10:20) HIVES doxycycline [DOXYCYCLINE] Allergy (Mild, Verified 02/21/23 10:20) HIVES oxycodone [OXYCODONE] Allergy (Mild, Verified 02/21/23 10:20) CHEST PAIN Penicillins [PCN] Allergy (Mild, Verified 02/21/23 10:20) HIVES acetaminophen [From VICODIN] Allergy (Unknown, Verified 02/21/23 10:20) UNKNOWN hydrocodone [From VICODIN] Allergy (Unknown, Verified 02/21/23 10:20) UNKNOWN Medication List - Last Reconciled 02/21/23 by Ghazala Hurd MD baclofen 10 mg PO DAILY fluticasone propionate 50 mcg/actuation (Flonase Allergy Relief) 1 spray intranasal DAILY gabapentin 300 mg PO DAILY hydroxyzine HCl 50 mg PO BEDTIME ipratropium-albuterol 20-100 mcg/actuation (Combivent Respimat) 1 puff inhalation Q6H linaclotide (Linzess) 72 mcg PO DAILY lisinopril 10 mg PO DAILY loratadine (Allergy Relief (loratadine)) 10 mg PO DAILY naproxen 500 mg PO BID ondansetron 4 mg PO Q8H oxybutynin chloride 5 mg PO BID venlafaxine ER 150 mg PO DAILY HPI HPI Comments History of Present Illness Details Uses cane or walker for ambulation, history of tethered cord syndrome. Right leg weaker side. History of spasticity, gets Botox injections, on baclofen and gabapentin. Here with her [employer]. Initially seen for ight arm pain, after being pulled while holding dog's leash on right hand. Did not fall. ED xrays done report no fracture. She reported having tingling on fingers on right. Pain on bottom of right thumb, along the tendons. History of ligament surgery 20 years ago, right hand/wrist. Put her on a thumb spica splint. X-ray done on day of consult reported none displays possible distal radius fracture. CT scan has been ordered which is not scheduled until 11/21/2022. Since last visit, she has been doing much better. No more pain on right wrist. Not wearing the splint anymore. Range of motion preserved. She also complained of left hip pain. She used to follow orthopedics in [place]. Sounds like she had intra-articular injection done which did not help; although on further questioning, she had injection on the right, not left. Pain was lateral hip, not the groin. X-rays done in outside hospital reported DJD and trochanteric spurs. She wants to transfer her care here. Performed left trochanteric injection on 11/02/2022. Unfortunately only short-term relief. Patient continues to complain of left lateral hip pain. Denies any groin pain. Yesterday she had more severe pain coming from the left lower back. No new numbness in feet. No new bladder or bowel changes. FORMERLY [facility], [facility] Medical History (Updated 02/21/23 @ 12:18 by Ghazala Hurd MD) De Quervain's tenosynovitis, right Anxiety with depression Chronic GERD Tethered cord syndrome Hypertension Hyperlipidemia Social History (Updated 11/02/22 @ 11:10 by Julissa Harding) Alcohol intake: never Patient Tobacco Use Status: Never used Tobacco Current occupational status: disabled Physical Exam Vital Signs: BMI result Body Mass Index 31.4 Constitutional: Patient appears to be in no acute distress, well nourished and well developed. Patient was appropriately conversant and oriented. Good historian. MSK: No specific abnormalities found on inspection of the spine and all extremities. No pain with palpation over the lumbar area. Tender on left SI joint. Tender left GT. Lumbar ROM was full. Bilateral hip, knee and ankle ROM WNL. No ligamentous laxity or crepitance. No increased effusion. Straight-leg raising test negative. FABERE test positive left lower back Strength is 5/5 in all muscle groups tested. No increased tone noted. Neurological: Neurologic examination of the upper and lower extremities was nonfocal with intact sensation, muscle stretch reflexes and without focal motor deficits . Chester?s negative bilaterally. Babinski was down going bilaterally. Clonus was negative. Gait is non-antalgic without loss of balance. Results Reviewed Results Reviewed: Lumbar and hip x-rays done in the office - independently reviewed, preserved disc spaces; moderate left hip arthritis No fracture seen. Assessment & Plan Assessment & Plan (1) Trochanteric bursitis of left hip: Code(s): M70.62 - Trochanteric bursitis, left hip (2) Sacroiliac joint dysfunction of left side: Code(s): M53.3 - Sacrococcygeal disorders, not elsewhere classified (3) Degenerative joint disease of left hip: Code(s): M16.12 - Unilateral primary osteoarthritis, left hip Qualifiers: Osteoarthritis type: primary Qualified Code(s): M16.12 - Unilateral primary osteoarthritis, left hip Plan At this point I would recommend intra-articular hip injection on left and possibly left SI joint injection. Discussed that this is done under fluoroscopy or ultrasound. Therefore I am referring her to our Pain Management Department. Briefly discuss possible hip replacement. However this is her good side and surgery on the left side may affect her gait/function severely. Assessment and plan discussed with patient, and patient was agreeable. All questions were answered thoroughly. Ghazala Hurd MD, GLENN Board Certified, [place] Board [employer] Physical Medicine and Rehabilitation (ABPMR) Board Certified, [place] Board of Electrodiagnostic Medicine (ABEM) Orders: Orders XR lumbar spine 2-3V Today M53.3 - Sacrococcygeal disorders, not elsewhere classified, M70.62 - Trochanteric bursitis, left hip XR hip LT min 2V Today M53.3 - Sacrococcygeal disorders, not elsewhere classified, M70.62 - Trochanteric bursitis, left hip Referrals Pain Management Referral M16.12 - Unilateral primary osteoarthritis, left hip, M53.3 - Sacrococcygeal disorders, not elsewhere classified, M70.62 - Trochanteric bursitis, left hip Coding Level of Care Code Est Pt Level 4 (99348) Diagnoses Trochanteric bursitis of left hip M70.62 Sacroiliac joint dysfunction of left side M53.3 Primary osteoarthritis of left hip M16.12 Osteoarthritis type: primary
[2023-02-21 10:20] VITALS: BMI 31.4
== END 2023-02-21 11:14 | disposition home or self-care (01) ==
PROVIDERS: Visit Provider Physical Medicine & Rehabilitation
DX: M70.62 Trochanteric bursitis, left hip (principal); M53.3 Sacrococcygeal disorders, not elsewhere classified; M16.12 Unilateral primary osteoarthritis, left hip
CPT/HCPCS: 99214

== ENCOUNTER 2023-02-21 10:19 | Outpatient (REF) | payer OTHER, SELFPAY ==
--- NOTE | ~2023-02-21 | XR_ITS ---
EXAMINATION: XR hip LT min 2V, XR lumbar spine 2-3V CLINICAL INFORMATION: Reason for Exam M70.62 - Trochanteric bursitis, left hip COMPARISON: None TECHNIQUE: 3 views of the lumbar spine. 2 views of the left hip FINDINGS: 5 nonrib-bearing lumbar-type vertebral bodies. Spinal cord stimulator device leads terminating at the level of the superior endplate of T10. Right upper quadrant cholecystectomy clips. Vertebral body heights are maintained. Alignment is maintained. Disc space heights are maintained. Large colonic stool burden in the rectum and left hemicolon. Left hip joint space is maintained without significant degenerative disc disease. Moderate osteoarthritis of the pubic symphysis with loss of joint space. No hip fracture or dislocation appreciated. Partially imaged mild osteoarthritis of the right hip with osteophytes. XR/XR hip LT min 2V IMPRESSION: 1. Spinal cord stimulator device leads terminating at the level of the superior endplate of T10. 2. Moderate osteoarthritis of the pubic symphysis and partially imaged mild osteoarthritis of the right hip. Left hip joint space is maintained.
--- NOTE | ~2023-02-21 | XR_ITS ---
EXAMINATION: XR hip LT min 2V, XR lumbar spine 2-3V CLINICAL INFORMATION: Reason for Exam M70.62 - Trochanteric bursitis, left hip COMPARISON: None TECHNIQUE: 3 views of the lumbar spine. 2 views of the left hip FINDINGS: 5 nonrib-bearing lumbar-type vertebral bodies. Spinal cord stimulator device leads terminating at the level of the superior endplate of T10. Right upper quadrant cholecystectomy clips. Vertebral body heights are maintained. Alignment is maintained. Disc space heights are maintained. Large colonic stool burden in the rectum and left hemicolon. Left hip joint space is maintained without significant degenerative disc disease. Moderate osteoarthritis of the pubic symphysis with loss of joint space. No hip fracture or dislocation appreciated. Partially imaged mild osteoarthritis of the right hip with osteophytes. XR/XR lumbar spine 2-3V IMPRESSION: 1. Spinal cord stimulator device leads terminating at the level of the superior endplate of T10. 2. Moderate osteoarthritis of the pubic symphysis and partially imaged mild osteoarthritis of the right hip. Left hip joint space is maintained.
== END 2023-02-21 10:20 | disposition home or self-care (01) ==
LOC: HO.HOSX 10:19
PROVIDERS: Visit Provider Physical Medicine & Rehabilitation
DX: M70.62 Trochanteric bursitis, left hip (principal); M16.12 Unilateral primary osteoarthritis, left hip; M25.552 Pain in left hip; M25.551 Pain in right hip; M53.3 Sacrococcygeal disorders, not elsewhere classified; Q06.8 Other specified congenital malformations of spinal cord
CPT/HCPCS: 72100; 73502; 99212

== ENCOUNTER 2023-04-17 06:15 | Outpatient (REF) | payer OTHER, SELFPAY ==
--- NOTE | ~2023-04-17 | FL_ITS ---
EXAMINATION: XR FLUOROSCOPY WITH IMAGES CLINICAL INFORMATION: Left SI joint pain. COMPARISON: Left hip 02/21/2023. TECHNIQUE: Fluoroscopy Supervised By: ODESSA Saenz. Fluoroscopy Time: 0.2 minutes. Cumulative Dose: 4.41 mGy. DAP: 0.0766 Gy-cm2. Images: 2. FINDINGS: There are 2 digital images revealing needle positioned over the left SI joint with contrast opacifying the soft tissues. FL/FL guidance in treatment room IMPRESSION: Fluoroscopy guidance was provided to referrer for left SI joint injection for pain management.
== END 2023-04-17 06:16 | disposition home or self-care (01) ==
LOC: CF 06:15
PROVIDERS: Visit Provider Anesthesiology
DX: M16.12 Unilateral primary osteoarthritis, left hip (principal); M70.62 Trochanteric bursitis, left hip; M53.3 Sacrococcygeal disorders, not elsewhere classified
CPT/HCPCS: 27096; J2795; Q9967

== ENCOUNTER 2023-04-17 08:15 | Outpatient (AMB) | payer OTHER, SELFPAY ==
[2023-04-17 08:59] VITALS: BP 126/76; PULSE 78; RESP 18; O2SAT 96; BMI 31.4
--- NOTE | 2023-04-17 08:59 | A.OFFVIS_ITS ---
Intake Vital Signs 04/17/23 08:59 04/17/23 10:08 Height 5 ft 4 in Weight 183 lb BMI 31.4 BP 126/76 118/82 Blood Pressure Location Lt brachial Lt brachial Position Sitting Sitting Respiration 18 18 Pulse 78 80 Pulse Source Pulse Oximeter Pulse Oximeter Pulse Oximetry (%) 96 97 Oxygen Delivery Method Room Air Room Air Comment Pre-Op Post-Op Intake Visit Reasons: LEFT DIAGNOSTIC SIJ INJECTION Allergies amoxicillin [From AUGMENTIN] Allergy (Mild, Verified 02/21/23 10:20) HIVES azithromycin [From ZITHROMAX] Allergy (Mild, Verified 02/21/23 10:20) HIVES clavulanic acid [From AUGMENTIN] Allergy (Mild, Verified 02/21/23 10:20) HIVES doxycycline [DOXYCYCLINE] Allergy (Mild, Verified 02/21/23 10:20) HIVES oxycodone [OXYCODONE] Allergy (Mild, Verified 02/21/23 10:20) CHEST PAIN Penicillins [PCN] Allergy (Mild, Verified 02/21/23 10:20) HIVES acetaminophen [From VICODIN] Allergy (Unknown, Verified 02/21/23 10:20) UNKNOWN hydrocodone [From VICODIN] Allergy (Unknown, Verified 02/21/23 10:20) UNKNOWN FOR[facility]LY [facility] Medical History (Updated 02/21/23 @ 12:18 by Ghazala Hurd MD) De Quervain's tenosynovitis, right Anxiety with depression Chronic GERD Tethered cord syndrome Hypertension Hyperlipidemia Social History (Updated 11/02/22 @ 11:10 by Julissa Harding) Alcohol intake: never Patient Tobacco Use Status: Never used Tobacco Current occupational status: disabled Physical Exam Vital Signs: Last Vital Signs Pulse 80 04/17/23 10:08 Resp 18 04/17/23 10:08 BP 118/82 04/17/23 10:08 Pulse Ox 97 04/17/23 10:08 Oxygen Delivery Method Room Air 04/17/23 10:08 BMI result Body Mass Index 31.4 Assessment & Plan Assessment & Plan (1) Trochanteric bursitis of left hip: Code(s): M70.62 - Trochanteric bursitis, left hip (2) Sacroiliac joint dysfunction of left side: Code(s): M53.3 - Sacrococcygeal disorders, not elsewhere classified Plan: Left diagnostic sacroiliac joint injection Informed consent was explained thoroughly to the patient. All questions about benefits and risks for the procedure were answered. Patient came to the operating room and was positioned prone on the operating table with the pillow under the pelvis. Time out was performed delineating name and of the patient, allergies and the nature of the procedure. Moderate distortion of the anatomy of the lower spine and pelvis were noted with inspection. This is secondary to spina bifida patient had as a child. Spinal cord stimulator position on the right buttock going into the thoracic spine is noted as well. The lower back and buttocks of the patient were prepped with ChloraPrep prepped and draped with sterile utility towels. C-arm was brought over the operating field and sq picture of patient's pelvis was demonstrated on the screen. For the left joint tilting C-arm contralateral to the site of the joint the most posterior portion of the joints was superimposed with anterior silhouette of the joint. Skin was injected in the projection of the joint slightly medial to the location of the joint with 25 gauge 1/2 inch needle using local lidocaine 2% .After that 22 gauge 3 and 1/2 inch needle was driven to the right joint in tunnel vision fashion. When needle entered the joint capsule injection of the contrast was performed demonstrating intra-articular and minimally periarticular spread of the contrast. After that 4 cc. of ropivacaine 0.5% was injected into the joint. Upon completion of the injections the needle was removed Sterile dressing was applied. Upon completion of the injection patient was taken outside of the operating room to the recovery room where recovered uneventfully. (3) Degenerative joint disease of left hip: Code(s): M16.12 - Unilateral primary osteoarthritis, left hip Qualifiers: Osteoarthritis type: primary Qualified Code(s): M16.12 - Unilateral primary osteoarthritis, left hip Plan At this point I would recommend intra-articular hip injection on left and possibly left SI joint injection. Discussed that this is done under fluoroscopy or ultrasound. Therefore I am referring her to our Pain Management Department. Briefly discuss possible hip replacement. However this is her good side and surgery on the left side may affect her gait/function severely. Assessment and plan discussed with patient, and patient was agreeable. All questions were answered thoroughly. Ghazala Hurd MD, GLENN Board Certified, [place] Board [employer] Physical Medicine and Rehabilitation (ABPMR) Board Certified, [place] Board [employer] Electrodiagnostic Medicine (ABEM) Orders: Orders FL guidance in treatment room Today M53.3 - Sacrococcygeal disorders, not elsewhere classified Coding Level of Care Code Procedure Only Diagnoses Trochanteric bursitis of left hip M70.62 Sacroiliac joint dysfunction of left side M53.3 Primary osteoarthritis of left hip M16.12 Osteoarthritis type: primary
[2023-04-17 10:08] VITALS: BP 118/82; PULSE 80; RESP 18; O2SAT 97
== END 2023-04-17 10:06 | disposition home or self-care (01) ==
LOC: HO.PMCPRC 08:16
PROVIDERS: Visit Provider Anesthesiology
DX: M70.62 Trochanteric bursitis, left hip (principal); M53.3 Sacrococcygeal disorders, not elsewhere classified; M16.12 Unilateral primary osteoarthritis, left hip
CPT/HCPCS: 27096

== ENCOUNTER 2023-04-23 09:23 | Outpatient (AMB) | payer OTHER, SELFPAY ==
--- NOTE | 2023-04-23 09:24 | MHC.OFFVIS ---
Intake Vital Signs 04/23/23 09:32 Height 5 ft 4 in Weight 183 lb BMI 31.4 BP 150/94 H Blood Pressure Location Lt brachial Position Sitting Respiration 14 Pulse 79 Pulse Source Pulse Oximeter Pulse Oximetry (%) 98 Oxygen Delivery Method Room Air Intake Visit Reasons: LEFT DIAGNOSTIC SIJ INJECTION/04/17/23 Intake Note: Patient comes in for post-op appointment. Reports pain 0/10. Allergies amoxicillin [From AUGMENTIN] Allergy (Mild, Verified 02/21/23 10:20) HIVES azithromycin [From ZITHROMAX] Allergy (Mild, Verified 02/21/23 10:20) HIVES clavulanic acid [From AUGMENTIN] Allergy (Mild, Verified 02/21/23 10:20) HIVES doxycycline [DOXYCYCLINE] Allergy (Mild, Verified 02/21/23 10:20) HIVES oxycodone [OXYCODONE] Allergy (Mild, Verified 02/21/23 10:20) CHEST PAIN Penicillins [PCN] Allergy (Mild, Verified 02/21/23 10:20) HIVES acetaminophen [From VICODIN] Allergy (Unknown, Verified 02/21/23 10:20) UNKNOWN hydrocodone [From VICODIN] Allergy (Unknown, Verified 02/21/23 10:20) UNKNOWN HPI HPI Comments History of Present Illness Details Ghazala Vargas is very pleasant 58 years old female who presented in my office by the referral of Dr. Ortiz, physiatry. She received as it was requested by Dr. Ortiz left sacroiliac joint injection. She reports that immediately after the procedure her pain decreased very minimally only to 7 out of 10 from 9/10. However unusual in next day after she felt complete and profound pain relief in the projection of the left sacroiliac joint. She reported better mobility and less pain in the left sacroiliac joint. That supports the Dr. Ortiz's diagnosis of sacroiliitis. However on the background of absence sacroiliac joint pain her left lateral hip pain with radiation of the pain into the groin exacerbated. She requests me to perform intra-articular hip injection and I will schedule her for this procedure. On the x-ray the right hip demonstrate arthritis and left hip apparently preserved. Nevertheless I would like to perform therapeutic injection of the left hip joint. Her past medical history significant for asthma, hypertension, she was born with spina bifida, she was operated twice on spina bifida once in [place] at the age of [age] years old and once in [place]. She also had spinal cord stimulator implanted [employer] to help her lower back pain. She reports that spinal cord stimulator helps her pain however not as strong as it was before. I want to refer her to [employer] customer service representative to try DTM on this patient. She denies smoking cigarettes drinking alcohol she denies recreational drugs she drinks coffee and occasionally soda. [facility] Medical History (Updated 04/23/23 @ 10:02 by Maicol Dangelo MD) De Quervain's tenosynovitis, right Anxiety with depression Chronic GERD Tethered cord syndrome Hypertension Hyperlipidemia Social History (Updated 11/02/22 @ 11:10 by Julissa Harding) Alcohol intake: never Patient Tobacco Use Status: Never used Tobacco Current occupational status: disabled Review of Systems Const All systems reviewed & are unremarkable except as noted in HPI and below Physical Exam Vital Signs: Last Vital Signs Pulse 84 04/23/23 09:32 Resp 14 04/23/23 09:32 BP 118/64 04/23/23 09:32 Pulse Ox 99 04/23/23 09:32 Oxygen Delivery Method Room Air 04/23/23 09:32 BMI result Body Mass Index 31.4 Constitutional: Patient appears to be in no acute distress, well nourished and well developed. Patient was appropriately conversant and oriented. Good historian. MSK: No specific abnormalities found on inspection of the spine and all extremities. No pain with palpation over the lumbar area. Tender on left SI joint. Tender left GT. Lumbar ROM was full. Bilateral hip, knee and ankle ROM WNL. No ligamentous laxity or crepitance. No increased effusion. Straight-leg raising test negative. FABERE test positive left lower back Strength is 5/5 in all muscle groups tested. No increased tone noted. Neurological: Neurologic examination of the upper and lower extremities was nonfocal with intact sensation, muscle stretch reflexes and without focal motor deficits . Chester?s negative bilaterally. Babinski was down going bilaterally. Clonus was negative. Gait is non-antalgic without loss of balance. Results Reviewed Results Reviewed: Lumbar and hip x-rays done in the office - independently reviewed, preserved disc spaces; moderate left hip arthritis No fracture seen. Assessment & Plan Assessment & Plan (1) Trochanteric bursitis of left hip: Code(s): M70.62 - Trochanteric bursitis, left hip (2) Sacroiliac joint dysfunction of left side: Code(s): M53.3 - Sacrococcygeal disorders, not elsewhere classified (3) Degenerative joint disease of left hip: Code(s): M16.12 - Unilateral primary osteoarthritis, left hip Qualifiers: Osteoarthritis type: primary Qualified Code(s): M16.12 - Unilateral primary osteoarthritis, left hip (4) Left hip pain: Code(s): M25.552 - Pain in left hip Plan Good results of diagnostic left sacroiliac joint injections. The patient reports 1 week of complete pain relief. On background of the absence sacroiliac joint pain her left hip pain is getting exacerbated. Dr. Hurd examined her office x-ray and made a conclusion that she had a hip arthritis on the left. I offered the patient intra-articular left hip steroid injection. She agreed to go for the procedure. I also will refer her to [employer] representatives to introduce DTM to help her pain control from [employer] spinal cord stimulator. I will see this patient after therapeutic left hip steroid injection. I Coding Level of Care Code New Pt Level 3 (51971) Diagnoses Trochanteric bursitis of left hip M70.62 Sacroiliac joint dysfunction of left side M53.3 Primary osteoarthritis of left hip M16.12 Osteoarthritis type: primary Left hip pain M25.552
[2023-04-23 09:32] VITALS: BP 150/94; PULSE 79; RESP 14; O2SAT 98; BMI 31.4
== END 2023-04-23 09:45 | disposition home or self-care (01) ==
PROVIDERS: Visit Provider Anesthesiology
DX: M70.62 Trochanteric bursitis, left hip (principal); M53.3 Sacrococcygeal disorders, not elsewhere classified; M16.12 Unilateral primary osteoarthritis, left hip; M25.552 Pain in left hip
CPT/HCPCS: 99213

== ENCOUNTER → 2023-04-23 09:23 | Outpatient (BNVA) | payer OTHER, SELFPAY | PROVIDERS: Visit Provider Anesthesiology | DX: M70.62 Trochanteric bursitis, left hip (principal); M53.3 Sacrococcygeal disorders, not elsewhere classified; M16.12 Unilateral primary osteoarthritis, left hip; M25.552 Pain in left hip | CPT/HCPCS: 99212 ==

== ENCOUNTER 2023-05-16 10:14 | Outpatient (AMB) | payer OTHER, SELFPAY ==
--- NOTE | 2023-05-16 10:24 | MHC.OFFVIS ---
Intake Intake Visit Reasons: OV-Left hip follow up-having pain Intake Note: Ghazala is a 57 year old female who presents today for a follow up for her left hip pain, last injection was in her back with pain management 04/23/23. Patient reports her last injection is still giving her relief. She expresses that she is waiting for approval for the injection in her left hip. Allergies amoxicillin [From AUGMENTIN] Allergy (Mild, Verified 05/16/23 10:28) HIVES azithromycin [From ZITHROMAX] Allergy (Mild, Verified 05/16/23 10:28) HIVES clavulanic acid [From AUGMENTIN] Allergy (Mild, Verified 05/16/23 10:28) HIVES doxycycline [DOXYCYCLINE] Allergy (Mild, Verified 05/16/23 10:28) HIVES oxycodone [OXYCODONE] Allergy (Mild, Verified 05/16/23 10:28) CHEST PAIN Penicillins [PCN] Allergy (Mild, Verified 05/16/23 10:28) HIVES acetaminophen [From VICODIN] Allergy (Unknown, Verified 05/16/23 10:) UNKNOWN hydrocodone [From VICODIN] Allergy (Unknown, Verified 05/16/23 10:28) UNKNOWN Medication List - Last Reconciled 05/16/23 by Ghazala Hurd MD baclofen 10 mg PO DAILY fluticasone propionate 50 mcg/actuation (Flonase Allergy Relief) 1 spray intranasal DAILY gabapentin 300 mg PO DAILY hydroxyzine HCl 50 mg PO BEDTIME ipratropium-albuterol 20-100 mcg/actuation (Combivent Respimat) 1 puff inhalation Q6H linaclotide (Linzess) 72 mcg PO DAILY lisinopril 10 mg PO DAILY loratadine (Allergy Relief (loratadine)) 10 mg PO DAILY naproxen 500 mg PO BID ondansetron 4 mg PO Q8H oxybutynin chloride 5 mg PO BID venlafaxine ER 150 mg PO DAILY HPI HPI Comments History of Present Illness Details Uses cane or walker for ambulation, history of tethered cord syndrome. Right leg weaker side. History of spasticity, gets Botox injections, on baclofen (gabapentin recently discontinued) by Dr. Teague. 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 I initially saw her for right arm pain, after being pulled while holding dog's leash on right hand. Did not fall. ED xrays done report no fracture. History of ligament surgery 20 years ago, right hand/wrist. Placed her on a thumb spica splint. X-ray done on day of consult reported non displaced possible distal radius fracture. CT scan did not show acute fracture. Wrist did get better over time. She also complained of left hip pain. She used to follow orthopedics in [place]. Sounds like she had intra-articular injection done which did not help; although on further questioning, she had injection on the right, not left. Pain was initially lateral hip, not the groin. X-rays done in outside hospital reported DJD and trochanteric spurs. I performed left trochanteric injection on 11/02/2022. Unfortunately only short-term relief. Repeat xray here reported arthritis on pubic symphisis but not on left hip joint. She also had left SI joint tenderness. Referred to Pain Management, seen by Dr. Milian. Left SI joint injection done 04/17/23 helped with back pain, 100% relief until now. Left groin pain continues. Awaiting schedule for left hip intraarticular injection. She had cramping on left foot last night. She says that's how right leg spasticity started. Additionally, because of right leg weakness (baseline), she frequently falls. She fells last month, on left wrist, which still hurts now and swollen. [facility] Medical History (Updated 05/16/23 @ 10:51 by Ghazala Hurd MD) Spasticity De Quervain's tenosynovitis, right Anxiety with depression Chronic GERD Tethered cord syndrome Hypertension Hyperlipidemia Social History Alcohol intake: never Patient Tobacco Use Status: Never used Tobacco Current occupational status: disabled Physical Exam Constitutional: Patient appears to be in no acute distress, well nourished and well developed. Patient was appropriately conversant and oriented. Good historian. MSK: No pain with palpation over the lumbar area. SI nontender. GT non tender. Lumbar ROM was full. Straight-leg raising test negative. FABERE test positive left groin pain. No new foot drop on left. Left wrist tender along lateral wrist, slightly swollen compared to right. Positive ayesha test left. Neurological: Chester?s negative bilaterally. Left babinski was down going bilaterally. Clonus left was negative. Results Reviewed Results Reviewed: Pain Management, Dr. Milian: She received as it was requested by Dr. Ortiz left sacroiliac joint injection. She reports that immediately after the procedure her pain decreased very minimally only to 7 out of 10 from 9/10. However unusual in next day after she felt complete and profound pain relief in the projection of the left sacroiliac joint. She reported better mobility and less pain in the left sacroiliac joint. That supports the Dr. Ortiz's diagnosis of sacroiliitis. However on the background of absence sacroiliac joint pain her left lateral hip pain with radiation of the pain into the groin exacerbated. She requests me to perform intra-articular hip injection and I will schedule her for this procedure. On the x-ray the right hip demonstrate arthritis and left hip apparently preserved. Nevertheless I would like to perform therapeutic injection of the left hip joint. Ordering Physician: Ghazala Ortiz Date of Service: 02/21/23 Procedure(s): XR lumbar spine 2-3V Accession Number(s): [id number] cc: Physician,Unknown ; Ghazala Ortiz~ EXAMINATION: XR hip LT min 2V, XR lumbar spine 2-3V CLINICAL INFORMATION: Reason for Exam M70.62 - Trochanteric bursitis, left hip COMPARISON: None TECHNIQUE: 3 views of the lumbar spine. 2 views of the left hip FINDINGS: 5 nonrib-bearing lumbar-type vertebral bodies. Spinal cord stimulator device leads terminating at the level of the superior endplate of T10. Right upper quadrant cholecystectomy clips. Vertebral body heights are maintained. Alignment is maintained. Disc space heights are maintained. Large colonic stool burden in the rectum and left hemicolon. Left hip joint space is maintained without significant degenerative disc disease. Moderate osteoarthritis of the pubic symphysis with loss of joint space. No hip fracture or dislocation appreciated. Partially imaged mild osteoarthritis of the right hip with osteophytes. XR/XR lumbar spine 2-3V IMPRESSION: 1. Spinal cord stimulator device leads terminating at the level of the superior endplate of T10. 2. Moderate osteoarthritis of the pubic symphysis and partially imaged mild osteoarthritis of the right hip. Left hip joint space is maintained. Assessment & Plan Assessment & Plan (1) Tethered cord syndrome: Code(s): Q06.8 - Other specified congenital malformations of spinal cord (2) Spasticity: Code(s): R25.2 - Cramp and spasm (3) Left hip pain: Code(s): M25.552 - Pain in left hip (4) Frequent falls: Code(s): R29.6 - Repeated falls (5) Left wrist pain: Code(s): M25.532 - Pain in left wrist Plan 1. left hip/groin pain - although hip xray does not show significant joint space loss. We have tried trochanter injection which did not help. She is waiting for schedule for left hip intraarticular injection under Dr. Milian, Pain Management. 2. Left SI joint - 100% relief after SI injection by Dr. Milian. Denies anymore back pain. 3. History of tethered cord, spasticty managed by Dr. Teague, neurology, with Botox injections and baclofen. Last night, she had cramping on left foot. Occured only once so far. She is concerned that she is developing spasticity on LLE now. It would be reasonable to obtain lumbar MRI, assess status of previous tethered cord. MRI ordered. 4. Frequent falls, left foot drop - fell 1 month ago, huring left wrist. Wrist still swollen now. Will do left wrist xray today. Reviewed films independently, no acute fracture that I could see. CMC joint does not show arthritis change. Await final reading, Will have her wear thumb spica splint. Assessment and plan discussed with patient, and patient was agreeable. All questions were answered thoroughly. Follow-up after MRI. Ghazala Hurd MD, GLENN Board Certified, [place] [employer] and Rehabilitation (ABPMR) Board Certified, [place] [employer] Electro[employer] (ABEM) Orders: Orders MR lumbar spine wo con Today Q06.8 - Other specified congenital malformations of spinal cord, R25.2 - Cramp and spasm XR wrist LT min 3V Today M25.532 - Pain in left wrist, R29.6 - Repeated falls Coding Level of Care Code Est Pt Level 4 (42444) Diagnoses Tethered cord syndrome Q06.8 Spasticity R25.2 Left hip pain M25.552 Frequent falls R29.6 Left wrist pain M25.532
== END 2023-05-16 11:12 | disposition home or self-care (01) ==
PROVIDERS: Visit Provider Physical Medicine & Rehabilitation
DX: Q06.8 Other specified congenital malformations of spinal cord (principal); R25.2 Cramp and spasm; M25.552 Pain in left hip; R29.6 Repeated falls; M25.532 Pain in left wrist
CPT/HCPCS: 99214

== ENCOUNTER 2023-05-16 10:14 | Outpatient (REF) | payer OTHER, SELFPAY ==
--- NOTE | ~2023-05-16 | XR_ITS ---
EXAMINATION: XR WRIST, LEFT CLINICAL INFORMATION: Pain. COMPARISON: None available. TECHNIQUE: PA, lateral, and oblique views of the left wrist. FINDINGS: There is mild bony demineralization. There is a slight ulnar minus variance. No fracture or dislocation is seen. There is no unusual degenerative change. No focal bone erosion is seen. The proximal and distal carpal rows are intact. No focal soft tissue swelling, gas or foreign body is seen. XR/XR wrist LT min 3V IMPRESSION: Unremarkable left wrist.
== END 2023-05-16 10:15 | disposition home or self-care (01) ==
LOC: HO.HOSX 10:14
PROVIDERS: Visit Provider Physical Medicine & Rehabilitation
DX: M25.532 Pain in left wrist (principal); Q06.8 Other specified congenital malformations of spinal cord; R25.2 Cramp and spasm; M25.552 Pain in left hip; R29.6 Repeated falls
CPT/HCPCS: 73110; 99212

== ENCOUNTER 2023-06-12 06:10 | Outpatient (REF) | payer OTHER, SELFPAY ==
--- NOTE | ~2023-06-12 | FL_ITS ---
EXAMINATION: XR FLUOROSCOPY WITH IMAGES CLINICAL INFORMATION: Left hip pain. COMPARISON: None available. TECHNIQUE: Fluoroscopy Supervised By: Dr. Maicol Dangelo. Fluoroscopy Time: 0.2 minutes. Cumulative Dose: 6.0 mGy. DAP: 0.0836 Gycm2. Images: 3. FINDINGS: Intraoperative fluoroscopy and spot films were performed during a procedure in the OR. Imaging shows a spinal needle overlying the left hip with contrast injected in the joint. Please see Dr. Maicol Dangelo's report for complete details. FL/FL guidance in treatment room IMPRESSION: Intraoperative fluoroscopy and spot films were obtained. Please see Dr. Maicol Dangelo's report for complete details.
== END 2023-06-12 06:11 | disposition home or self-care (01) ==
LOC: CF 06:10
PROVIDERS: Visit Provider Anesthesiology
DX: M25.552 Pain in left hip (principal); Q06.8 Other specified congenital malformations of spinal cord; R25.2 Cramp and spasm; R29.6 Repeated falls; M25.532 Pain in left wrist
CPT/HCPCS: 20610; J2795; J3301; Q9967

== ENCOUNTER 2023-06-12 08:50 | Outpatient (AMB) | payer OTHER, SELFPAY ==
--- NOTE | 2023-06-12 08:50 | MHC.OFFVIS ---
Vital Signs 06/12/23 09:31 06/12/23 09:32 Height 5 ft 4 in Weight 183 lb BMI 31.4 BP 124/74 132/76 Blood Pressure Location Lt brachial Lt brachial Position Sitting Sitting Respiration 18 Pulse 71 78 Pulse Source Pulse Oximeter Pulse Oximeter Pulse Oximetry (%) 96 95 Oxygen Delivery Method Room Air Room Air Comment Pre-Op Post-Op Intake Visit Reasons: LEFT HIP INJECTION Allergies amoxicillin [From AUGMENTIN] Allergy (Mild, Verified 05/16/23 10:28) HIVES azithromycin [From ZITHROMAX] Allergy (Mild, Verified 05/16/23 10:28) HIVES clavulanic acid [From AUGMENTIN] Allergy (Mild, Verified 05/16/23 10:28) HIVES doxycycline [DOXYCYCLINE] Allergy (Mild, Verified 05/16/23 10:28) HIVES oxycodone [OXYCODONE] Allergy (Mild, Verified 05/16/23 10:28) CHEST PAIN Penicillins [PCN] Allergy (Mild, Verified 05/16/23 10:28) HIVES acetaminophen [From VICODIN] Allergy (Unknown, Verified 05/16/23 10:28) UNKNOWN hydrocodone [From VICODIN] Allergy (Unknown, Verified 05/16/23 10:28) UNKNOWN [facility] Medical History (Updated 05/16/23 @ 10:51 by Ghazala Hurd MD) Spasticity De Quervain's tenosynovitis, right Anxiety with depression Chronic GERD Tethered cord syndrome Hypertension Hyperlipidemia Social History Alcohol intake: never Patient Tobacco Use Status: Never used Tobacco Current occupational status: disabled Assessment & Plan Assessment & Plan (1) Tethered cord syndrome: Code(s): Q06.8 - Other specified congenital malformations of spinal cord Category: Medical (2) Spasticity: Code(s): R25.2 - Cramp and spasm Category: Medical (3) Left hip pain: Code(s): M25.552 - Pain in left hip Category: Medical Plan: Left hip steroid injection. Informed consent was explained to the patient. All questions were explained and answered. The patient was taken inside of the operating room where she was positioned left lateral decubitus on operating table.. Time-out was performed delineating patient's name and date of , correct site, side, the nature of the procedure, patient's allergy, preoperative antibiotic if needed, need for VT prophylaxis.. All operating room staff was participating in OR time-out procedure. Left hip area of the patient was prepped with ChloraPrep and draped with sterile towels. C-arm was brought over the operating field and picture of left and right lateral views of the bilateral hip joints were delineated on the screen. The smaller joint silhouette was chosen as the target. Projection of the right trochanter to the skin was chosen as the initial needle insertion point. After that the skin and subcutaneous tissues was anesthetized with 2% lidocaine 2.5 mL. 22 gauge 5 in long needle was inserted through the skin and started to advance to the joint space under intermittent lateral and anterior posterior views. When needle entered the capsule of the joint small amount of the contrast was injected delineating intra-articular space. After that treatment solution containing 4 mL of ropivacaine 0.5% and 40 mg of Kenalog was injected into the joint. The needle was withdrawn sterile dressing was applied.The patient tolerated procedure well (4) Frequent falls: Code(s): R29.6 - Repeated falls Category: Medical (5) Left wrist pain: Code(s): M25.532 - Pain in left wrist Category: Medical Plan 1. left hip/groin pain - although hip xray does not show significant joint space loss. We have tried trochanter injection which did not help. She is waiting for schedule for left hip intraarticular injection under Dr. Milian, Pain Management. 2. Left SI joint - 100% relief after SI injection by Dr. Milian. Denies anymore back pain. 3. History of tethered cord, spasticty managed by Dr. Teague, neurology, with Botox injections and baclofen. Last night, she had cramping on left foot. Occured only once so far. She is concerned that she is developing spasticity on LLE now. It would be reasonable to obtain lumbar MRI, assess status of previous tethered cord. MRI ordered. 4. Frequent falls, left foot drop - fell 1 month ago, huring left wrist. Wrist still swollen now. Will do left wrist xray today. Reviewed films independently, no acute fracture that I could see. CMC joint does not show arthritis change. Await final reading, Will have her wear thumb spica splint. Assessment and plan discussed with patient, and patient was agreeable. All questions were answered thoroughly. Follow-up after MRI. Ghazala Hurd MD, GLENN Board Certified, [place] [employer] and Rehabilitation (ABPMR) Board Certified, [place] [employer] Electro[employer]ostic [employer] (ABEM) Orders: Orders FL guidance in treatment room Today M25.552 - Pain in left hip Coding Level of Care Code Procedure Only Diagnoses Tethered cord syndrome Q06.8 Spasticity R25.2 Left hip pain M25.552 Frequent falls R29.6 Left wrist pain M25.532
[2023-06-12 09:31] VITALS: BP 124/74; PULSE 71; RESP 18; O2SAT 96; BMI 31.4
[2023-06-12 09:32] VITALS: BP 132/76; PULSE 78; O2SAT 95
== END 2023-06-12 09:24 | disposition home or self-care (01) ==
LOC: HO.PMCPRC 08:50
PROVIDERS: Visit Provider Anesthesiology
DX: M25.552 Pain in left hip (principal)
CPT/HCPCS: 20610; 77002

== ENCOUNTER 2023-07-05 18:46 | Outpatient (REF) | payer OTHER, SELFPAY ==
--- NOTE | ~2023-07-05 | MR_ITS ---
EXAMINATION: MR LUMBAR SPINE WITHOUT CONTRAST CLINICAL INFORMATION: 58-year-old female, Low back pain, history of tethered cord; spasticity, right leg weakness and numbness, pain, and toe numbness. History of prior lumbar surgery 10+ years prior. COMPARISON: No prior MR. Correlation with lumbar spine x-rays 02/21/2023. TECHNIQUE: Multiplanar multisequence MR imaging of the lumbar spine was done without IV contrast. FINDINGS: Coronal Alignment: Normal. No scoliosis. Sagittal Alignment: Normal lordosis. 2 mm anterolisthesis L5 on S1. Otherwise anatomic alignment. Lumbosacral Junction: Normal. Hypoplastic right L5-S1 facet versus facetectomy. Vertebral Bodies/Bone Marrow: Normal signal. A few scattered T1 hyperintense hemangiomata are present. No bone marrow edema identified. No abnormal infiltrative abnormal bone marrow signal. Disc Spaces and Endplates: Discs are normal in height and signal with mild desiccation at L4-L5 and L5-S1. No endplate abnormalities. Spinal Canal: No congenital narrowing. 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 There have been prior L5-S1 laminectomies, with ligation of the filum terminalis from tethered cord syndrome. 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 Spinal canal is capacious spanning L4-S2. There is a dorsal epidural lipoma spanning the inferior third of L4 to the inferior endplate of L5. Conus Medullaris: Conus terminates approximately L4-L5 disc space. The spinal cord spanning the inferior endplate of L1 through the L5-S1 disc space appears thinned, likely secondary to tethered cord syndrome. Despite the thinning, it is normal in signal without gross myelopathy. Mild thinning of the cord cyst spanning L1 and more superiorly is noted without cord signal aberration. Intradural Nerve Roots: The cauda equina is somewhat clumped together at the L4-L5 disc level and more distally, secondary to thoracic cord history. The nerve roots at the S1 and S2 levels appear grossly normal in distribution without mass. Spinal stimulator leads noted in the dorsal epidural space, entering L1-L2 interlaminar region and terminating at the T10 level. Axial Disc Space Images: T12-L1: Only seen sagittally, no focal disc herniation, or central canal or neural foraminal narrowing. L1-L2: No focal disc herniation, central canal or neural foraminal narrowing. L2-L3: No focal disc herniation, central canal or neural foraminal narrowing. Mild facet hypertrophy bilaterally. L3-L4: No focal disc herniation, central canal or neural foraminal narrowing. Mild facet hypertrophy bilaterally. L4-L5: Minimal diffuse disc bulge present extending into bilateral foraminal zones. The central canal is capacious. Partial laminectomy. Dorsal lipoma present as discussed above. No significant neural foraminal narrowing. L5-S1: 2 mm anterolisthesis. Minimal disc uncovering and minimal bulging with a subtle left foraminal annular fissure. The central canal is capacious with dorsal laminectomies either a hypoplastic right facet or partial right facetectomy. The neural foramina are patent bilaterally. Imaged SI Joints: Mild degenerative changes bilaterally. Paravertebral and Included Extraspinal Soft Tissues: Aorta is normal in caliber and course. No adenopathy. Imaged kidneys appear normal. Normal appendix is noted. Susceptibility artifact from generator pack in the right superior flank region. MR/MR lumbar spine wo con IMPRESSION: 1. Mild spondylosis most significant L5-S1, where there is a hypoplastic right facet or a partial right facetectomy. No significant central canal, subarticular recess, or neural foraminal narrowing at any level. 2. Abnormalities related to tethered cord syndrome as discussed above, with dorsal laminectomies spanning L4-S1, and spinal stimulator device in place with leads terminating in the dorsal epidural space at the superior T10 level. 3. Thinned and tethered spinal cord without abnormal cord signal spanning L1-L4. Surgical changes of the filum terminale. Abnormal clumping of nerve roots of the superior cauda equina, related to congenital tethered cord. See above for further details.
== END 2023-07-05 18:47 | disposition home or self-care (01) ==
LOC: HO.MRI 18:46
PROVIDERS: Visit Provider Physical Medicine & Rehabilitation
DX: Q06.8 Other specified congenital malformations of spinal cord (principal); R25.2 Cramp and spasm
CPT/HCPCS: 72148

== ENCOUNTER → 2023-07-05 18:47 | Outpatient (BNV) | payer OTHER, SELFPAY | PROVIDERS: Visit Provider Radiology Diagnostic Radiology | DX: M47.896 Other spondylosis, lumbar region (principal) | CPT/HCPCS: 72148 ==

== ENCOUNTER 2023-07-25 08:36 | Outpatient (AMB) | payer OTHER, SELFPAY ==
--- NOTE | 2023-07-25 08:37 | MHC.OFFVIS ---
Vital Signs 07/25/23 08:42 Height 5 ft 4 in Weight 181 lb BMI 31.1 BP 120/84 Blood Pressure Location Lt brachial Position Sitting Respiration 14 Pulse 80 Pulse Source Pulse Oximeter Pulse Oximetry (%) 98 Oxygen Delivery Method Room Air Intake Visit Reasons: LEFT HIP INJECTION Intake Note: Patient comes in for post-op appointment. Reports pain 07/15. Allergies amoxicillin [From AUGMENTIN] Allergy (Mild, Verified 07/25/23 08:42) HIVES azithromycin [From ZITHROMAX] Allergy (Mild, Verified 07/25/23 08:42) HIVES clavulanic acid [From AUGMENTIN] Allergy (Mild, Verified 07/25/23 08:42) HIVES doxycycline [DOXYCYCLINE] Allergy (Mild, Verified 07/25/23 08:42) HIVES oxycodone [OXYCODONE] Allergy (Mild, Verified 07/25/23 08:42) CHEST PAIN Penicillins [PCN] Allergy (Mild, Verified 07/25/23 08:42) HIVES acetaminophen [From VICODIN] Allergy (Unknown, Verified 07/25/23 08:42) UNKNOWN hydrocodone [From VICODIN] Allergy (Unknown, Verified 07/25/23 08:42) UNKNOWN HPI Comments Details: Ghazala Vargas is back in my office after therapeutic intra-articular left hip steroid injection. She reported about 1 month of the pain relief. She reported that 2 weeks ago pain started to come back and now the pain is back to the pre-injection level. She would like to consider her options to treat this pain. I explained to her that steroid injections which do not result in more than 3 months of the pain relief not indicated to be continued. I told her that possibility exists to treat her condition in the left hip with total hip replacement however she adamantly refused. I explained to her possibility to treat this pain with spinal cord stimulator curonix inserted at L2-L3 and L3-L4 positions on the left side through the foramina to help her pain, patient is stating that she has already 1 spinal cord stimulator. I explained to her that this spinal cord stimulator would not be with implantable battery and it would not interfere with the other 1 however the patient is reluctant to consider this treatment. Nevertheless brochure from [employer] was given to the patient . Eventually at the end of the conversation I told the patient that possibility exists to treat her condition of the left hip with intra-articular platelet rich plasma injection. I explained to the patient that this is not covered by any insurance. The patient does not want this procedure to be tried. Chronic opioid therapy with need to sign chronic opioid contract with this office were briefly explained to the patient. The patient is very negative about chronic opioid therapy. Prior : She received as it was requested by Dr. Ortiz left sacroiliac joint injection. She reports that immediately after the procedure her pain decreased very minimally only to 7 out of 10 from 910. However unusual in next day after she felt complete and profound pain relief in the projection of the left sacroiliac joint. She reported better mobility and less pain in the left sacroiliac joint. That supports the Dr. Ortiz's diagnosis of sacroiliitis. However on the background of absence sacroiliac joint pain her left lateral hip pain with radiation of the pain into the groin exacerbated. She requests me to perform intra-articular hip injection and I will schedule her for this procedure. On the x-ray the right hip demonstrate arthritis and left hip apparently preserved. Nevertheless I would like to perform therapeutic injection of the left hip joint. Her past medical history significant for asthma, hypertension, she was born with spina bifida, she was operated twice on spina bifida once in [place] at the age of [age] years old and once in [place]. She also had spinal cord stimulator implanted [employer] to help her lower back pain. She reports that spinal cord stimulator helps her pain however not as strong as it was before. I want to refer her to [employer] inside sales account representative to try DTM on this patient. She denies smoking cigarettes drinking alcohol she denies recreational drugs she drinks coffee and occasionally soda. [facility] Medical History (Updated 05/16/23 @ 10:51 by Ghazala Hurd MD) Spasticity De Quervain's tenosynovitis, right Anxiety with depression Chronic GERD Tethered cord syndrome Hypertension Hyperlipidemia Social History Alcohol intake: never Patient Tobacco Use Status: Never used Tobacco Current occupational status: disabled Review of Systems Const All systems reviewed & are unremarkable except as noted in HPI and below Physical Exam Vital Signs: Last Vital Signs Pulse 80 07/25/23 08:42 Resp 14 07/25/23 08:42 BP 120/84 07/25/23 08:42 Pulse Ox 98 07/25/23 08:42 Oxygen Delivery Method Room Air 07/25/23 08:42 BMI result Body Mass Index 31.1 Constitutional: Patient appears to be in no acute distress, well nourished and well developed. Patient was appropriately conversant and oriented. Good historian. MSK: No specific abnormalities found on inspection of the spine and all extremities. No pain with palpation over the lumbar area. Tender on left SI joint. Tender left GT. Lumbar ROM was full. Bilateral hip, knee and ankle ROM WNL. No ligamentous laxity or crepitance. No increased effusion. Straight-leg raising test negative. FABERE test positive left lower back Strength is 5/5 in all muscle groups tested. No increased tone noted. Neurological: Neurologic examination of the upper and lower extremities was nonfocal with intact sensation, muscle stretch reflexes and without focal motor deficits . Chester?s negative bilaterally. Babinski was down going bilaterally. Clonus was negative. Gait is non-antalgic without loss of balance. Assessment & Plan Assessment & Plan (1) Tethered cord syndrome: Code(s): Q06.8 - Other specified congenital malformations of spinal cord Category: Medical (2) Spasticity: Code(s): R25.2 - Cramp and spasm Category: Medical (3) Left hip pain: Code(s): M25.552 - Pain in left hip Category: Medical (4) Frequent falls: Code(s): R29.6 - Repeated falls Category: Medical (5) Left wrist pain: Code(s): M25.532 - Pain in left wrist Category: Medical Plan Multiple options were offered today to the patient to treat her left hip arthritis. The patient is not very eager to hear all of them. Naturally total hip replacement would be the easiest way to address her pain however at this time neither patient is ready to go for this procedure nor the conclusion of orthopedic surgery was made on the total hip replacement. From the spectrum of the pain management procedure I offered the patient: 1. Chronic opioid therapy. Patient refused. 2. Transforaminal spinal cord stimulator L2-L3 and L3-L4. Patient needs to go for psychological evaluation. Patient is reluctant to go for this procedure but brochure was given. 3. Consider total hip replacement. Patient is reluctant to go for the surgery. 4. Platelet rich plasma injection. Not covered by insurance. The patient is reluctant to go for this procedure. She still reports good results of the sacroiliac joint injection. Patient Instructions: I here by testify that I spent 35 minutes in conversation with this patient as well as evaluating prior records, evaluating prior images, evaluating fresh MRI images (which are not described by radiologist yet) as well as planning her care and organizing this note. Coding Level of Care Code Est Pt Level 4 (56203) Diagnoses Tethered cord syndrome Q06.8 Spasticity R25.2 Left hip pain M25.552 Frequent falls R29.6 Left wrist pain M25.532
[2023-07-25 08:42] VITALS: BP 120/84; PULSE 80; RESP 14; O2SAT 98; BMI 31.1
== END 2023-07-25 08:55 | disposition home or self-care (01) ==
PROVIDERS: Visit Provider Anesthesiology
DX: Q06.8 Other specified congenital malformations of spinal cord (principal); R25.2 Cramp and spasm; M25.552 Pain in left hip; R29.6 Repeated falls; M25.532 Pain in left wrist
CPT/HCPCS: 99214

== ENCOUNTER → 2023-07-25 08:36 | Outpatient (BNVA) | payer OTHER, SELFPAY | PROVIDERS: Visit Provider Anesthesiology | DX: Q06.8 Other specified congenital malformations of spinal cord (principal); R25.2 Cramp and spasm; R29.6 Repeated falls; M25.552 Pain in left hip; M25.532 Pain in left wrist | CPT/HCPCS: 99212 ==

== ENCOUNTER 2023-08-16 09:10 | Outpatient (AMB) | payer OTHER, SELFPAY ==
--- NOTE | 2023-08-16 09:21 | A.OFFVIS_ITS ---
Vital Signs 08/16/23 09:24 Height 5 ft 4 in Weight 181 lb BMI 31.1 Intake Visit Reasons: OV-Lower back MRI Follow up Intake Note: Ghazala is a 58 year old female who presents to the office today with a cane for Lower back MRI review. She says at her last visit with Pain Management he suggested surgery for hip replacement and she does not want to move forward with this. She states she is finding relief with the injections. Allergies amoxicillin [From AUGMENTIN] Allergy (Mild, Verified 07/25/23 08:42) HIVES azithromycin [From ZITHROMAX] Allergy (Mild, Verified 07/25/23 08:42) HIVES clavulanic acid [From AUGMENTIN] Allergy (Mild, Verified 07/25/23 08:42) HIVES doxycycline [DOXYCYCLINE] Allergy (Mild, Verified 07/25/23 08:42) HIVES oxycodone [OXYCODONE] Allergy (Mild, Verified 07/25/23 08:42) CHEST PAIN Penicillins [PCN] Allergy (Mild, Verified 07/25/23 08:42) HIVES acetaminophen [From VICODIN] Allergy (Unknown, Verified 07/25/23 08:42) UNKNOWN hydrocodone [From VICODIN] Allergy (Unknown, Verified 07/25/23 08:42) UNKNOWN HPI Comments Details: Uses cane or walker for ambulation, history of tethered cord syndrome. Right leg weaker side and numb. History of spasticity, gets Botox injections, on baclofen (gabapentin recently discontinued) by Dr. Teague. Here with her CAD SPECIALIST. I initially saw her for right arm pain, after being pulled while holding dog's leash on right hand. Did not fall. ED xrays done report no fracture. History of ligament surgery 20 years ago, right hand/wrist. Placed her on a thumb spica splint. X-ray done on day of consult reported non displaced possible distal radius fracture. CT scan did not show acute fracture. Wrist did get better over time. She also complained of left hip pain. She used to follow orthopedics in [place]. Sounds like she had intra-articular injection done which did not help; although on further questioning, she had injection on the right, not left. Pain was initially lateral hip, not the groin. X-rays done in outside hospital reported DJD and trochanteric spurs. I performed left trochanteric injection on 11/02/2022. Unfortunately only short-term relief. Repeat xray here reported arthritis on pubic symphisis but not on left hip joint. She also had left SI joint tenderness. Referred to Pain Management, seen by Dr. Milian. Left SI joint injection done 04/17/23 helped with back pain, 100% relief until now. Left hip pain continued. Had left intraarticular injection with Dr. Milian which helped but only lasted [address] Milian recommended options for this left hip pain including hip replacement, PRP injections. Patient had deferred. They did adjust the PNS which she already had for her tethered cord, which has helped with left hip pain. She had cramping on left foot and said that's how right leg spasticity started. MRI obtained, which overall did not show any change from previous. No cord signal abnormality. No significant spinal stenosis. Scheduled last Botox injection with Dr. Teague on RLE (gastroc?) in September. Dr. Teague retiring, she will transfer care here for Botox injections. Denies anymore left sided shakiness . Since last visit, still falls frequently even at home, fractured 7th rib right (seen on CT scan), 1 1/2 months ago. She already has walker and cane. She also had a flu. This was all managed by her PCP in [place] where she lives. She just finished home PT. Has VNA 3 times/week. Has new AFO. [facility] Medical History (Updated 05/16/23 @ 10:51 by Ghazala Hurd MD) Spasticity De Quervain's tenosynovitis, right Anxiety with depression Chronic GERD Tethered cord syndrome Hypertension Hyperlipidemia Social History Alcohol intake: never Patient Tobacco Use Status: Never used Tobacco Current occupational status: disabled Physical Exam Vital Signs: BMI result Body Mass Index 31.1 Constitutional: Patient appears to be in no acute distress, well nourished and well developed. Patient was appropriately conversant and oriented. Good historian. MSK/Neuro: Upper body strong, no increased tone. LLE strong 5/5, no increased tone. RLE 4/5 on hip flexion, knee extension 4+/5, ankle on AFO, inverted despite AFO. No tone on knee. No pain with palpation over the lumbar area. SI nontender. GT non tender. Results Reviewed Results Reviewed: Ordering Physician: Ghazala Ortiz Date of Service: 07/05/23 Procedure(s): MR lumbar spine wo con Accession Number(s): [id number] cc: Ghazala Ortiz~ EXAMINATION: MR LUMBAR SPINE WITHOUT CONTRAST CLINICAL INFORMATION: 58-year-old female, Low back pain, history of tethered cord; spasticity, right leg weakness and numbness, pain, and toe numbness. History of prior lumbar surgery 10+ years prior. COMPARISON: No prior MR. Correlation with lumbar spine x-rays 02/21/2023. TECHNIQUE: Multiplanar multisequence MR imaging of the lumbar spine was done without IV contrast. FINDINGS: Coronal Alignment: Normal. No scoliosis. Sagittal Alignment: Normal lordosis. 2 mm anterolisthesis L5 on S1. Otherwise anatomic alignment. Lumbosacral Junction: Normal. Hypoplastic right L5-S1 facet versus facetectomy. Vertebral Bodies/Bone Marrow: Normal signal. A few scattered T1 hyperintense hemangiomata are present. No bone marrow edema identified. No abnormal infiltrative abnormal bone marrow signal. Disc Spaces and Endplates: Discs are normal in height and signal with mild desiccation at L4-L5 and L5-S1. No endplate abnormalities. Spinal Canal: No congenital narrowing. 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 There have been prior L5-S1 laminectomies, with ligation of the filum terminalis from tethered cord syndrome. 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 Spinal canal is capacious spanning L4-S2. There is a dorsal epidural lipoma spanning the inferior third of L4 to the inferior endplate of L5. Conus Medullaris: Conus terminates approximately L4-L5 disc space. The spinal cord spanning the inferior endplate of L1 through the L5-S1 disc space appears thinned, likely secondary to tethered cord syndrome. Despite the thinning, it is normal in signal without gross myelopathy. Mild thinning of the cord cyst spanning L1 and more superiorly is noted without cord signal aberration. Intradural Nerve Roots: The cauda equina is somewhat clumped together at the L4-L5 disc level and more distally, secondary to thoracic cord history. The nerve roots at the S1 and S2 levels appear grossly normal in distribution without mass. Spinal stimulator leads noted in the dorsal epidural space, entering L1-L2 interlaminar region and terminating at the T10 level. Axial Disc Space Images: T12-L1: Only seen sagittally, no focal disc herniation, or central canal or neural foraminal narrowing. L1-L2: No focal disc herniation, central canal or neural foraminal narrowing. L2-L3: No focal disc herniation, central canal or neural foraminal narrowing. Mild facet hypertrophy bilaterally. L3-L4: No focal disc herniation, central canal or neural foraminal narrowing. Mild facet hypertrophy bilaterally. L4-L5: Minimal diffuse disc bulge present extending into bilateral foraminal zones. The central canal is capacious. Partial laminectomy. Dorsal lipoma present as discussed above. No significant neural foraminal narrowing. L5-S1: 2 mm anterolisthesis. Minimal disc uncovering and minimal bulging with a subtle left foraminal annular fissure. The central canal is capacious with dorsal laminectomies either a hypoplastic right facet or partial right facetectomy. The neural foramina are patent bilaterally. Imaged SI Joints: Mild degenerative changes bilaterally. Paravertebral and Included Extraspinal Soft Tissues: Aorta is normal in caliber and course. No adenopathy. Imaged kidneys appear normal. Normal appendix is noted. Susceptibility artifact from generator pack in the right superior flank region. MR/MR lumbar spine wo con IMPRESSION: 1. Mild spondylosis most significant L5-S1, where there is a hypoplastic right facet or a partial right facetectomy. No significant central canal, subarticular recess, or neural foraminal narrowing at any level. ? 2. Abnormalities related to tethered cord syndrome as discussed above, with dorsal laminectomies spanning L4-S1, and spinal stimulator device in place with leads terminating in the dorsal epidural space at the superior T10 level. ? 3. Thinned and tethered spinal cord without abnormal cord signal spanning L1-L4. Surgical changes of the filum terminale. Abnormal clumping of nerve roots of the superior cauda equina, related to congenital tethered cord. See above for further details. Reviewed notes from Pain Management. Assessment & Plan Assessment & Plan (1) Tethered cord syndrome: Code(s): Q06.8 - Other specified congenital malformations of spinal cord Category: Medical (2) Spasticity: Code(s): R25.2 - Cramp and spasm Category: Medical (3) Left hip pain: Code(s): M25.552 - Pain in left hip Category: Medical (4) Frequent falls: Code(s): R29.6 - Repeated falls Category: Medical Plan 1. left hip/groin pain - controlled by PNS which was recently adjusted. SI joint non painful since injection. 2. History of tethered cord, spasticty managed by Dr. Teague, neurology, with Botox injections to RLE and baclofen. Dr. Teague is retiring and she would like to transfer care here. Her next Botox injection is in September. I will see her back in October for planning of next Botox injection in December. MRI does not show any new cord abnormality. No disc herniations. No spinal stenosis. 3. Frequent falls - I think it is just because her RLE is weaker. But she is already getting appropriate treatment for RLE, and Baclofen is only once a day so it is not causing oversedation per patient. She had home PT, she has VNA. Advised to use walker with 2 wheels only, not the 4 wheeled which may be too fast for her. We've already adjusted her cane height. And she has a new AFO. Talked about just going slow. Assessment and plan discussed with patient, and patient was agreeable. All questions were answered thoroughly. Follow-up in October. Ghazala Hurd MD, GLENN Board Certified, [place] [employer] and Rehabilitation (ABPMR) Board Certified, [place] [employer] Electro[employer] (ABEM) Coding Level of Care Code Est Pt Level 4 (80415) Diagnoses Tethered cord syndrome Q06.8 Spasticity R25.2 Left hip pain M25.552 Frequent falls R29.6
[2023-08-16 09:24] VITALS: BMI 31.1
== END 2023-08-16 10:00 | disposition home or self-care (01) ==
PROVIDERS: Visit Provider Physical Medicine & Rehabilitation
DX: Q06.8 Other specified congenital malformations of spinal cord (principal); M25.552 Pain in left hip; R25.2 Cramp and spasm; R29.6 Repeated falls
CPT/HCPCS: 99213

== ENCOUNTER → 2023-08-16 09:10 | Outpatient (BNVA) | payer OTHER, SELFPAY | PROVIDERS: Visit Provider Physical Medicine & Rehabilitation | DX: Q06.8 Other specified congenital malformations of spinal cord (principal); R25.2 Cramp and spasm; R29.6 Repeated falls; M25.552 Pain in left hip | CPT/HCPCS: 99212 ==

== ENCOUNTER 2023-10-17 10:05 | Outpatient (AMB) | payer OTHER, SELFPAY ==
--- NOTE | 2023-10-17 10:06 | MHC.OFFVIS ---
Intake Visit Reasons: OV-Botox eval Intake Note: Ghazala is a 58 year old female who presents to the office today for an evaluation of botox injections. Pt states she has gotten them for years from Dr. Raymundo. Pt states she would like to continue getting injections in her right calf. Pt states the injections help her. Her last injection was 06/21/[address] Raymundo. Allergies amoxicillin [From AUGMENTIN] Allergy (Mild, Verified 10/17/23 10:06) HIVES azithromycin [From ZITHROMAX] Allergy (Mild, Verified 10/17/23 10:06) HIVES clavulanic acid [From AUGMENTIN] Allergy (Mild, Verified 10/17/23 10:06) HIVES doxycycline [DOXYCYCLINE] Allergy (Mild, Verified 10/17/23 10:06) HIVES oxycodone [OXYCODONE] Allergy (Mild, Verified 10/17/23 10:06) CHEST PAIN Penicillins [PCN] Allergy (Mild, Verified 10/17/23 10:06) HIVES acetaminophen [From VICODIN] Allergy (Unknown, Verified 10/17/23 10:06) UNKNOWN hydrocodone [From VICODIN] Allergy (Unknown, Verified 10/17/23 10:06) UNKNOWN HPI Comments Details: Uses cane or walker for ambulation, history of tethered cord syndrome. Right leg weaker side and numb. Uses an AFO. Was getting Botox injection from Dr. Teague, last 06/21/2023. Good results after injections. No complications. Dr. Teague been injecting 200 units to posterior tibialis, 50 units in medial gastrocnemius, 50 units to soleus, total 300 units. Patient needs to transfer care is Dr. Teague retired. Patient says right foot turns inward with activity. Poses a fall risk. Recent fall again in September, seen by PCP, found to haVe 7th rib fracture (shows me CT scan report on her patient portal). She is to see [facility] for injection for the rib pain. [facility] Medical History (Updated 10/17/23 @ 10:49 by Ghazala Hurd MD) Spastic hemiplegia affecting right dominant side Spasticity De Quervain's tenosynovitis, right Anxiety with depression Chronic GERD Tethered cord syndrome Hypertension Hyperlipidemia Social History Alcohol intake: never Patient Tobacco Use Status: Never used Tobacco Current occupational status: disabled Physical Exam At rest, right gastrocnemius and yamileth is not tight. Gayatri 0. But with gait, right foot slaps and turns inward. Results Reviewed Results Reviewed: Reviewed notes from Dr. Teague. Assessment & Plan Assessment & Plan (1) Spastic hemiplegia affecting right dominant side: Code(s): G81.11 - Spastic hemiplegia affecting right dominant side Category: Medical (2) Tethered cord syndrome: Code(s): Q06.8 - Other specified congenital malformations of spinal cord Category: Medical Plan I believe Botox has already been approved by insurance. Patient to be scheduled November 06 in the afternoon, central schedule we will call to formalize. Instructions given to patient where to go. ICD10: G81.11 affecting right dominant side PREVIOUS TREATMENT AND RESPONSE: Prior Botox injection from Dr. Teague with good results, no complications TOXIN TO BE USED: Botox number of units needed: 300 number of extremities to be injected: 1 number of muscles to be injected per extremity: Up to 4 CPT code: 11945 1 ext, 1-4 muscles Wastage: None anticipated Guidance code: 89834 EMG guidance for chemodenervation J code: Botox J0585 Assessment and plan discussed with patient, and patient was agreeable. All questions were answered thoroughly. Total of 30 min spent today including chart review, results review, history taking, physical examination, discussion of assessment and plan, and coordination of care. [ ] Ghazala Hurd MD, GLENN Board Certified, [place] [employer] and [employer] (ABPMR) Board Certified, [place] [employer] Electro[employer] (ABEM) Coding Level of Care Code Est Pt Level 4 (54889) Diagnoses Spastic hemiplegia affecting right dominant side G81.11 Tethered cord syndrome Q06.8
== END 2023-10-17 10:34 | disposition home or self-care (01) ==
PROVIDERS: Visit Provider Physical Medicine & Rehabilitation
DX: G81.11 Spastic hemiplegia affecting right dominant side (principal); Q06.8 Other specified congenital malformations of spinal cord
CPT/HCPCS: 99214

== ENCOUNTER → 2023-10-17 10:05 | Outpatient (BNVA) | payer OTHER, SELFPAY | PROVIDERS: Visit Provider Physical Medicine & Rehabilitation | DX: G81.11 Spastic hemiplegia affecting right dominant side (principal); Q06.8 Other specified congenital malformations of spinal cord | CPT/HCPCS: 99212 ==

== ENCOUNTER 2023-11-07 14:55 | Outpatient (REF) | payer OTHER, SELFPAY ==
--- NOTE | 2023-11-07 15:32 | EMG_ITS ---
PROCEDURE PERFORMED: Botulinum toxin chemodenervation DIAGNOSIS: spastic hemiparesis ICD10: G81.11 affecting right dominant side INDICATION: spastic muscles spasmodic torticollis PREVIOUS TREATMENT AND RESPONSE: Oral antispasticity medications and physical therapy without response Last injection by Dr. Teague more than 3 months ago. EXAM ON DAY OF PROCEDURE: Inverted right foot, plantar flex, Gayatri 2 only. TOXIN USED: Botox PROCEDURE: The procedure was explained to the patient/caregiver, and informed consent was obtained. The patient laid down on bed. Right lower extremity was cleansed with betadine in the usual sterile manner. A 26 gauge needle electrode was used. Muscle Units per site Number of sites Units per muscle Right TP 25 3 75 Right MG 25 2 50 Right LG 25 1 25 Right Soleus 50 1 50 EMG-guidance was used during the injection. A total of 200 units injected. units wastage. Vial size: 200 units per vial Dilution: 100 units per 1 ml of preservative free saline The patient tolerated the procedure well without complications. CODING: CPT code: 34390 1 ext, 1-4 muscles Guidance code: 57635 EMG guidance for chemodenervation J code: Botox J0585 [facility] code: 8168-2290-82 Lot #: [id number] Expiration date: [facility]
== END 2023-11-07 14:56 | disposition home or self-care (01) ==
LOC: HO.NEURO 14:55
PROVIDERS: Visit Provider Physical Medicine & Rehabilitation
DX: G81.11 Spastic hemiplegia affecting right dominant side (principal)
CPT/HCPCS: 64642; 95874; J0585

== ENCOUNTER → 2023-11-07 15:32 | Outpatient (BNV) | payer OTHER, SELFPAY | PROVIDERS: Visit Provider Physical Medicine & Rehabilitation | DX: G81.11 Spastic hemiplegia affecting right dominant side (principal) | CPT/HCPCS: 64642; 95874 ==

== ENCOUNTER 2023-12-13 08:57 | Outpatient (AMB) | payer OTHER, SELFPAY ==
--- NOTE | 2023-12-13 09:19 | MHC.OFFVIS ---
Vital Signs 12/13/23 09:21 Height 5 ft 4 in Weight 192 lb BMI 33.0 Intake Visit Reasons: OV- Botox injection 1 month f/u Intake Note: Alicia is a 58 year old female who presents today for a follow up visit s/p Botox injections on 11/07/2023. Patient reports she is having twitching in her right foot. Allergies amoxicillin [From AUGMENTIN] Allergy (Mild, Verified 12/13/23 09:21) HIVES azithromycin [From ZITHROMAX] Allergy (Mild, Verified 12/13/23 09:21) HIVES clavulanic acid [From AUGMENTIN] Allergy (Mild, Verified 12/13/23 09:21) HIVES doxycycline [DOXYCYCLINE] Allergy (Mild, Verified 12/13/23 09:21) HIVES oxycodone [OXYCODONE] Allergy (Mild, Verified 12/13/23 09:21) CHEST PAIN Penicillins [PCN] Allergy (Mild, Verified 12/13/23 09:21) HIVES acetaminophen [From VICODIN] Allergy (Unknown, Verified 12/13/23 09:21) UNKNOWN hydrocodone [From VICODIN] Allergy (Unknown, Verified 12/13/23 09:21) UNKNOWN Medication List - Last Reconciled 12/13/23 by Ghazala Hurd MD baclofen 10 mg PO DAILY fluticasone propionate 50 mcg/actuation (Flonase Allergy Relief) 1 spray intranasal DAILY hydroxyzine HCl 50 mg PO BEDTIME ipratropium-albuterol 20-100 mcg/actuation (Combivent Respimat) 1 puff inhalation Q6H linaclotide (Linzess) 72 mcg PO DAILY lisinopril 10 mg PO DAILY loratadine (Allergy Relief (loratadine)) 10 mg PO DAILY ondansetron 4 mg PO Q8H oxybutynin chloride 5 mg PO BID venlafaxine ER 150 mg PO DAILY HPI Comments Details: Uses cane or walker for ambulation, history of tethered cord syndrome. Right leg weaker side and numb. Uses an AFO. Was getting Botox injection from Dr. Teague, last 06/21/2023. Good results after injections. No complications. Dr. Teague been injecting 200 units to posterior tibialis, 50 units in medial gastrocnemius, 50 units to soleus, total 300 units. Patient needs to transfer care is Dr. Teague retired. Patient says right foot turns inward with activity. Poses a fall risk. Recent fall again in September, seen by PCP, found to haVe 7th rib fracture (shows me CT scan report on her patient portal). She is to see [facility] for injection for the rib pain. Injection 11/07/2023 with botulinum toxin (Botox), done by me. Total of 200 units. Muscle Units per site Number of sites Units per muscle Right TP 25 3 75 Right MG 25 2 50 Right LG 25 1 25 Right Soleus 50 1 50 Total of 200 units. Note that I used smaller dose than Dr. Teague because he had been using more than maximum recommended dose for posterior tibialis. Patient reports post-injection pain. She still had episodes of severe pain with the right foot turning in, could happen once or twice a week, usually at night. Patient denies any infection after injection or other complications. She had a fall 1 time in her backyard in the last few weeks while she was not wearing her AFO. [facility] Medical History Spastic hemiplegia affecting right dominant side Spasticity De Quervain's tenosynovitis, right Anxiety with depression Chronic GERD Tethered cord syndrome Hypertension Hyperlipidemia Social History Alcohol intake: never Patient Tobacco Use Status: Never used Tobacco Current occupational status: disabled Physical Exam Vital Signs: BMI result Body Mass Index 33.0 At rest, right foot is inverted and slightly plantar flexed. But can passively dorsiflex and alla back to neutral, without resistance, without clonus, overall Gayatri 0 -1. Assessment & Plan Assessment & Plan (1) Spastic hemiplegia affecting right dominant side: Code(s): G81.11 - Spastic hemiplegia affecting right dominant side Category: Medical Qualifiers: Hemiplegia etiology: non-cerebrovascular Qualified Code(s): G81.11 - Spastic hemiplegia affecting right dominant side (2) Tethered cord syndrome: Code(s): Q06.8 - Other specified congenital malformations of spinal cord Category: Medical Plan I think overall botulinum toxin injection helped the patient because there is no clonus, there is no tightness on exam, Gayatri 0. However she gets severe pain with right foot inverting spontaneously at night, maybe twice a week. In that case, I think we would have to increase the dose injected to posterior tibialis, while keeping the same dose for gastrocnemius and soleus muscles. We will increased total dose of 300 units. Patient eager to proceed with botulinum toxin injections. Next injection would be 02/13/2024. Assessment and plan discussed with patient, and patient was agreeable. All questions were answered thoroughly. Total of 45 min spent today including chart review, results review, history taking, physical examination, discussion of assessment and plan, and coordination of care. Ghazala Hurd MD, GLENN Board Certified, [place] [employer] and [employer] (ABPMR) Board Certified, [place] [employer] Electro[employer] (ABEM) Coding Level of Care Code Est Pt Level 4 (09215) Diagnoses Spastic hemiplegia of right dominant side due to noncerebrovascular etiology G81.11 Hemiplegia etiology: non-cerebrovascular Tethered cord syndrome Q06.8
[2023-12-13 09:21] VITALS: BMI 33.0
== END 2023-12-13 09:48 | disposition home or self-care (01) ==
LOC: HO.HOS 08:58
PROVIDERS: Visit Provider Physical Medicine & Rehabilitation
DX: G81.11 Spastic hemiplegia affecting right dominant side (principal); Q06.8 Other specified congenital malformations of spinal cord
CPT/HCPCS: 99215

== ENCOUNTER → 2023-12-13 08:57 | Outpatient (BNVA) | payer OTHER, SELFPAY | PROVIDERS: Visit Provider Physical Medicine & Rehabilitation | DX: G81.11 Spastic hemiplegia affecting right dominant side (principal); Q06.8 Other specified congenital malformations of spinal cord | CPT/HCPCS: 99212 ==

== ENCOUNTER → 2024-02-13 12:00 | Outpatient (BNV) | payer OTHER, SELFPAY | PROVIDERS: Visit Provider Physical Medicine & Rehabilitation | DX: G81.11 Spastic hemiplegia affecting right dominant side (principal) | CPT/HCPCS: 64642; 95874 ==

== ENCOUNTER 2024-02-13 14:58 | Outpatient (REF) | payer OTHER, SELFPAY ==
--- NOTE | 2024-02-13 12:00 | EMG_ITS ---
PROCEDURE PERFORMED: Botulinum toxin chemodenervation DIAGNOSIS: spastic hemiparesis ICD10: G81.11 affecting right dominant side INDICATION: spastic muscles spasmodic torticollis PREVIOUS TREATMENT AND RESPONSE: Oral antispasticity medications and physical therapy without response Last injection by Dr. Teague more than 3 months ago. EXAM 12/13/23: At rest, right foot is inverted and slightly plantar flexed. But can passively dorsiflex and alla back to neutral, without resistance, without clonus, overall Gayatri 0 -1. TOXIN USED: Botox PROCEDURE: The procedure was explained to the patient/caregiver, and informed consent was obtained. The patient laid down on bed. Right leg was cleansed with betadine in the usual sterile manner. A 26 gauge needle electrode was used. Muscle Units per site Number of sites Units per muscle Right TP 50 2 100 Right MG 50 2 100 Right LG 50 2 100 EMG-guidance was used during the injection. A total of 300 units injected. 0 units wastage. Vial size: 100 units per vial Dilution: 100 units per 1 ml of preservative free saline The patient tolerated the procedure well without complications. The patient was observed for 30 minutes, before being discharged with post procedure instructions. CODING: CPT code: 59119 1 ext, 1-4 muscles Guidance code: 63106 EMG guidance for chemodenervation J code: Botox J0585 [facility] code: 0560-4779-96 Lot #: [id number] [facility]
--- OUTSIDE RECORDS SUMMARY | 2024-02-13 15:05 | XMS_ITS | Clinical Summary ---
Author Organization Unknown Care Team Providers Care Ream Cutter Name Role Phone ILDA JACOBSEN, SAKINA Unavailable Unavailable PRABHAKAR SLATER, KD Unavailable Unavailable Payers Payer Name Policy Type Policy Number Effective Date Expira tion Date [facility] [id number] MEDICAID [facility] [id number] MEDICARE - [facility] [facility] [id number] Problems Condition Name Condition Details Condition Category Status Onset Date Resolution Date Last Treatment Date Treating Clinician Comments MAJOR DEPRESSIVE DISORDER, RECURRENT, UNSPECIFIED Active 2022-02 00:00: 00 Allergies, Adverse Reactions, Alerts Allergy Name Allergy Type Status Severity Reaction(s) Onset Date Inactive Date Treating Clinician Comments ASPIRIN Propensity to adverse reactions Active 2022-02 20:58: 06 AUGMENTIN Propensity to adverse reactions Active 2022-02 20:56: 59 DOXYCYCLINE Propensity to adverse reactions Active 2022-02 20:58: 22 PERCOCET Propensity to adverse reactions Active 2022-02 20:56: 35 VANCOMYCIN Propensity to adverse reactions Active 2022-02 20:56: 48 VICODIN Propensity to adverse reactions Active 2022-02 20:56: 20 ZITHROMAX Propensity to adverse reactions Active 2022-02 20:57: 35 PENICILLIN Propensity to adverse reactions Active 2022-02 20:58: 48 Medications Ordered Medication Name Filled Medication Name Start Date Stop Date Current Medication? Ordering Clinician Indication Dosage Frequency Signature (SIG) Comments Components baclofen 10 mg tablet 10-31 00:00: 00 Yes [id number] Per instruc tions EVERY DAY Per instructio ns EVERY DAY (route: oral) Med Classific ation: Locomotor System gabapentin 300 mg capsule 10-31 00:00: 00 12-03 23:59 :00 No [id number] Per instruc tions THREE TIMES DAILY Per instructio ns THREE TIMES DAILY (route: oral) Med Classific ation: Central Nervous System Agents hydroxyzine HCl 50 mg tablet 10-31 00:00: 00 Yes [id number] Per instruc tions EVERY DAY AT BEDTIME NEEDED Per instructio ns EVERY DAY AT BEDTIME NEEDED (route: oral) Med Classific ation: Central Nervous System Agents ondansetron HCl 4 mg tablet 10-31 00:00: 00 12-03 23:59 :00 No [id number] Per instruc tions EVERY DAY Per instructio ns EVERY DAY (route: oral) Med Classific ation: Gastroint estinal Therapy Agents Combivent Respimat 20 mcg-100 mcg/actuati on solution for inhalation 10-30 00:00: 00 Yes [id number] Per instruc tions FOUR TIMES DAILY Per instructio ns FOUR TIMES DAILY (route: inhalation ) Med Classific ation: Respirato ry Therapy Agents fluticasone propionate 50 mcg/actuati on nasal spray,suspe nsion 10-30 00:00: 00 Yes [id number] Per instruc tions TWICE DAILY NEEDED Per instructio ns TWICE DAILY NEEDED (route: nasal) Med Classific ation: Respirato ry Therapy Agents lisinopril 10 mg tablet 10-30 00:00: 00 05-10 23:59 :00 No [id number] Per instruc tions EVERY DAY Per instructio ns EVERY DAY (route: oral) Med Classific ation: Cardiovas cular Therapy Agents oxybutynin chloride 5 mg tablet 10-30 00:00: 00 Yes [id number] Per instruc tions TWICE DAILY Per instructio ns TWICE DAILY (route: oral) Med Classific ation: Genitouri nary Therapy venlafaxine ER 150 mg capsule,ext ended release 24 hr 10-30 00:00: 00 Yes [id number] Per instruc tions EVERY DAY Per instructio ns EVERY DAY (route: oral) Med Classific ation: Central Nervous System Agents duloxetine 30 mg capsule,del ayed release 10-23 00:00: 00 07-09 23:59 :00 No [id number] Per instruc tions BEDTIME Per instructio ns BEDTIME (route: oral) Med Classific ation: Central Nervous System Agents naproxen 250 mg tablet 2-27 00:00: 00 05-10 23:59 :00 No [id number] 1 tablet 2 TIMES DAILY 1 tablet 2 TIMES DAILY (route: oral) Med Classific ation: Analgesic , Anti-infl ammatory or Antipyret ic lisinopril 20 mg tablet 4- 00:00: 00 Yes [id number] 20 tablet DAILY 20 tablet DAILY (route: oral) Med Classific ation: Cardiovas cular Therapy Agents Breo Ellipta 200 mcg-25 mcg/dose powder for inhalation 6- 00:00: 00 Yes [id number] 1 inhalat ion DAILY 1 inhalation DAILY (route: inhalation ) Med Classific ation: Respirato ry Therapy Agents gabapentin 100 mg capsule 2023-02 0- 00:00: 00 01-17 23:59 :00 No [id number] 1 capsule DAILY 1 capsule DAILY (route: oral) Med Classific ation: Central Nervous System Agents Vital Signs Vital Name Observation Time Observation Value Commen ts Pulse 2024-02-04 12:18:00.000 89 /min Pulse 2024-01-28 13:15:00.000 69 /min Systolic Blood Pressure 2024-02-04 12:18:00.000 117 mm [Hg] Systolic Blood Pressure 2024-01-28 13:15:00.000 128 mm [Hg] Diastolic Blood Pressure 2024-02-04 12:18:00.000 93 mm [Hg] Diastolic Blood Pressure 2024-01-28 13:15:00.000 85 mm [Hg] Plan of Treatment Planned Activity Planned Date Details Comments Future Scheduled Test SKILLED NU RSE TO EVALUATE PATIENT, IDENTIFY PRIMARY AND CO-MORBID CONDITIONS CODED PER CODING GUIDELINES, AND DEVELOP PATIENT SPECIFIC PLAN OF CARE THAT INCLUDES PATIENT GOAL FOR HOME HEALTH. [code = SKILLED NURSE TO EVALUATE PATIENT, IDENTIFY PRIMARY AND CO-MORBID CONDITIONS CODED PER CODING GUIDELINES, AND DEVELOP PATIENT SPECIFIC PLAN OF CARE THAT INCLUDES PATIENT GOAL FOR HOME HEALTH.] Future Scheduled Test SKILLED NU RSE TO O/A OF PATIENTS MENTAL/BEHAVIORAL STATUS, ASSESS VITAL SIGNS , THREE TIMES WEEKLY ALLOW 2 PRNS FOR MEDICATION MANAGEMENT. [code = SKILLED NURSE TO O/A OF PATIENTS MENTAL/BEHAVIORAL STATUS, ASSESS VITAL SIGNS , THREE TIMES WEEKLY ALLOW 2 PRNS FOR MEDICATION MANAGEMENT.] Future Scheduled Test SKILLED NU RSE WILL MAINTAIN SITUATIONAL AWARENESS FOR SAFETY AND WILL NOTIFY CLINICAL DRAFTER (CAD) ELECTRONIC AND PHYSICIAN/PROVIDER WITH ANY CHANGE IN CONDITION. [code = SKILLED NURSE WILL MAINTAIN SITUATIONAL AWARENESS FOR SAFETY AND WILL NOTIFY CLINICAL DRAFTER (CAD) ELECTRONIC AND PHYSICIAN/PROVIDER WITH ANY CHANGE IN CONDITION.] Future Scheduled Test SKILLED NU RSE TO REVIEW PATIENT MEDICATIONS. INSTRUCT PATIENT/CAREGIVER ON MONITORING OF EFFECTIVENESS, ADVERSE DRUG REACTIONS, SIDE EFFECTS OF ALL MEDICATIONS (PRESCRIPTION/-OTC), AND HOW AND WHEN TO REPORT PROBLEMS. [code = SKILLED NURSE TO REVIEW PATIENT MEDICATIONS. INSTRUCT PATIENT/CAREGIVER ON MONITORING OF EFFECTIVENESS, ADVERSE DRUG REACTIONS, SIDE EFFECTS OF ALL MEDICATIONS (PRESCRIPTION/-OTC), AND HOW AND WHEN TO REPORT PROBLEMS.] Future Scheduled Test SKILLED NU RSE TO PRE-POUR MEDICATION PER MEDICATION LIST WEEKLY [code = SKILLED NURSE TO PRE-POUR MEDICATION PER MEDICATION LIST WEEKLY ] Future Scheduled Test SKILLED NU RSE FOR O/A AND SKILLED TEACHING RELATED TO MANAGEMENT OF DEPRESSIVE SYMPTOMS AND/OR DEPRESSION. SN TO REPORT SIGNIFICANT CHANGE IN DEPRESSIVE SYMPTOMS TO CLINICAL PROVIDER FOR EARLY INTERVENTION. [code = SKILLED NURSE FOR O/A AND SKILLED TEACHING RELATED TO MANAGEMENT OF DEPRESSIVE SYMPTOMS AND/OR DEPRESSION. SN TO REPORT SIGNIFICANT CHANGE IN DEPRESSIVE SYMPTOMS TO CLINICAL PROVIDER FOR EARLY INTERVENTION.] Future Scheduled Test SKILLED NU RSE TO ASSESS PATIENTS PSYCHOSOCIAL STATUS TO IDENTIFY POTENTIAL ISSUES THAT MAY COMPLICATE THE PROVISION OF THE PLAN OF CARE INCLUDING THE PATIENTS ABILITY TO ACCESS COMMUNITY RESOURCES AND PSYCHOSOCIAL SUPPORT SERVICES. [code = SKILLED NURSE TO ASSESS PATIENTS PSYCHOSOCIAL STATUS TO IDENTIFY POTENTIAL ISSUES THAT MAY COMPLICATE THE PROVISION OF THE PLAN OF CARE INCLUDING THE PATIENTS ABILITY TO ACCESS COMMUNITY RESOURCES AND PSYCHOSOCIAL SUPPORT SERVICES.] Future Scheduled Test SKILLED NU RSE MAY PICKUP AND TRANSPORT MEDICATIONS [code = SKILLED NURSE MAY PICKUP AND TRANSPORT MEDICATIONS] Future Scheduled Test SKILLED NU RSE TO PROVIDE TEACHING ON SIGNS AND SYMPTOMS AND MANAGEMENT OF HYPERTENSION. [code = SKILLED NURSE TO PROVIDE TEACHING ON SIGNS AND SYMPTOMS AND MANAGEMENT OF HYPERTENSION.] Goal 2024-01-25 Patient Goal - M EDICATION MANAGEMENT, MAINTAIN MOOD STABILITY Goal Patient Goal - M EDICATION MANAGEMENT, MAINTAIN MOOD STABILITY Goal 2023-11-23 Patient Goal - M EDICATION MANAGEMENT, MAINTAIN MOOD STABILITY Goal 2023-09-24 Patient Goal - M EDICATION MANAGEMENT, MAINTAIN MOOD STABILITY Goal 2023-07-25 Patient Goal - M EDICATION MANAGEMENT, MAINTAIN MOOD STABILITY Goal 2023-05-29 Patient Goal - M EDICATION MANAGEMENT, MAINTAIN MOOD STABILITY Goal 2023-01-26 Patient Goal - M EDICATION MANAGEMENT, MAINTAIN MOOD STABILITY Goal 2023-03-29 Patient Goal - M EDICATION MANAGEMENT, MAINTAIN MOOD STABILITY Goal Provider Goal - A PLAN OF CARE WILL BE ESTABLISHED THAT MEETS PATIENT'S SENIOR CARE NEEDS AND INCLUDES PATIENT GOAL FOR HOME HEALTH. Goal Provider Goal - ALTERED MENTAL/BEHAVIORAL STATUS WILL BE IDENTIFIED PROMPTLY AND INTERVENTION INITIATED QUICKLY TO MINIMIZE ASSOCIATED RISKS THROUGHOUT CERTIFICATION PERIOD. Goal Provider Goal - PATIENT WILL REMAIN SAFE IN THE COMMUNITY AND WILL BE FREE OF DANGER TO SELF AND OTHERS THROUGHOUT THE CERTIFICATION PERIOD. Goal Provider Goal - PATIENT/CAREGIVER WILL VERBALIZE UNDERSTANDING OF EDUCATION PROVIDED ON MEDICATIONS BY THE END OF THE CERTIFICATION PERIOD. Goal Provider Goal - PATIENT WILL COMPLY WITH MEDICATION WHEN SKILLED NURSE PRE-POURS MEDICATION THROUGHOUT CERTIFICATION PERIOD. Goal Provider Goal - PATIENT WILL REMAIN SAFE WITHOUT DECOMPENSATION IN DEPRESSIVE CONDITION, WHILE MAINTAINING OPTIMAL LEVEL OF MENTAL HEALTH AND WELL BEING THROUGHOUT CERTIFICATION PERIOD. Goal Provider Goal - PSYCHOSOCIAL NEEDS WILL BE IDENTIFIED AND PLAN IMPLEMENTED TO MINIMIZE RISK THROUGHOUT CERTIFICATION PERIOD. Goal Provider Goal - SKILLED NURSE PICKED UP AND TRANSPORTED MEDICATIONS FOR SAFETY. Goal Provider Goal - PATIENT/CAREGIVER WILL VERBALIZE SIGNS AND SYMPTOMS OF HYPERTENSION AND WILL BE ABLE TO DEMONSTRATE ABILITY TO MANAGE EXACERBATION BY END OF THE EPISODE. Encounters Start Date/Time End Date/Time Encounter Type Admission Type Attending [facility] Care Facility Care Department Encounter ID Discharge Date Discharge Status Discharge Condition Discharge Reason Percent Goals Met 2022-12-02 00:00:00 2024-03-25 00:00:00 Outpatient RECERTIFIC ATION [facility] [id number] 53.85
== END 2024-02-13 14:59 | disposition home or self-care (01) ==
LOC: HO.NEURO 14:58
PROVIDERS: Visit Provider Physical Medicine & Rehabilitation
DX: G81.11 Spastic hemiplegia affecting right dominant side (principal)
CPT/HCPCS: 64642; 95874; J0585

== ENCOUNTER 2024-04-03 09:47 | Outpatient (AMB) | payer OTHER, SELFPAY ==
--- NOTE | 2024-04-03 09:50 | MHC.OFFVIS ---
Vital Signs 04/03/24 09:54 Height 5 ft 4 in Weight 194 lb BMI 33.3 Intake Visit Reasons: OV -post botox ffup 1 month Intake Note: Alicia is a 58 year old female who presents today for a follow up visit s/p Botox injections on 02/13/24. States her leg and foot continue to turn inward, she is having leg spasm and her toes contract. Allergies amoxicillin [From AUGMENTIN] Allergy (Mild, Verified 04/03/24 09:53) HIVES azithromycin [From ZITHROMAX] Allergy (Mild, Verified 04/03/24 09:53) HIVES clavulanic acid [From AUGMENTIN] Allergy (Mild, Verified 04/03/24 09:53) HIVES doxycycline [DOXYCYCLINE] Allergy (Mild, Verified 04/03/24 09:53) HIVES oxycodone [OXYCODONE] Allergy (Mild, Verified 04/03/24 09:53) CHEST PAIN Penicillins [PCN] Allergy (Mild, Verified 04/03/24 09:53) HIVES acetaminophen [From VICODIN] Allergy (Unknown, Verified 04/03/24 09:53) UNKNOWN hydrocodone [From VICODIN] Allergy (Unknown, Verified 04/03/24 09:53) UNKNOWN HPI Comments Details: I initially saw patient for arm pain and back pain, associated with frequent falls. Uses cane or walker for ambulation. History of tethered cord syndrome. Right leg weaker side and numb. Uses an AFO. Was getting Botox injection from Dr. Teague, last 06/21/[address] notes [address] Teague had been injecting 200 units to posterior tibialis, 50 units in medial gastrocnemius, 50 units to soleus, total 300 units. I have explained to patient before and today (with daughter Linda on the phone) that 200 units to posterior tibialis is above recommended maximum of 75 units. When I first injected patient on 11/07/23, I limited injection to posterior tibialis to 75 units plus additional units to gastrocnemius as Dr. Teague did. However after that, patient has been getting cramps on calves and toes especially at night. On next injection 02/13/24, I increased dose to the following: Muscle Units per site Number of sites Units per muscle Right TP 50 2 100 Right MG 50 2 100 Right LG 50 2 100 Total of 300 units. However, patient still experienced cramping of calf and toes flexing, especially at night. She has fallen again, 1 month ago, but admits that she does not wear her AFO at home. She takes oral baclofen 10mg qhs. [facility] Medical History Spastic hemiplegia affecting right dominant side Spasticity De Quervain's tenosynovitis, right Anxiety with depression Chronic GERD Tethered cord syndrome Hypertension Hyperlipidemia Social History Alcohol intake: never Patient Tobacco Use Status: Never used Tobacco Current occupational status: disabled Physical Exam Vital Signs: BMI result Body Mass Index 33.3 At rest, right foot is inverted and slightly plantar flexed. But can passively dorsiflex and alla back to neutral, without resistance, without clonus, Gayatri 0 on dorsiflexion, plantarflexion and inversion; Gayatri 0 on knee flexion and extension. However, after ranging the foot, I did see that toes flexed in and foot turned inwards stiffly for a few minutes. Results Reviewed Results Reviewed: Reviewes notes from Dr. Teague Assessment & Plan Assessment & Plan (1) Spastic hemiplegia affecting right dominant side: Code(s): G81.11 - Spastic hemiplegia affecting right dominant side Category: Medical Qualifiers: Hemiplegia etiology: non-cerebrovascular Qualified Code(s): G81.11 - Spastic hemiplegia affecting right dominant side (2) Tethered cord syndrome: Code(s): Q06.8 - Other specified congenital malformations of spinal cord Category: Medical Plan Again discussed with patient and daughter that previous injections from Dr. Teague exceeded maximum recommended for tibialis posterior. But perhaps, that is what her body has been used for many years now. Therefore we will go back to that dosing, as follows: Tibialis posterior 200 units. -- I think there was spread of to the toe flexors which helped her in the past. We will try to replicate that effect. Medial gastrocnemius 50 units. Lateral gastrocnemius 50 units. Total dose still 300 units. Patient eager to proceed with botulinum toxin injections. Next injection would be 05/07/24 3pm. Will also increase oral baclofen dose to 20mg qhs. Discussed side effects. Will do telehealth follow up in 2 weeks to check on her. Repeatedly advised to wear AFO at home to prevent falls. Assessment and plan discussed with patient, and patient was agreeable. All questions were answered thoroughly. Ghazala Hurd MD, GLENN Board Certified, [place] [employer] and [employer] (ABPMR) Board Certified, [place] [employer] (ABEM) Medications: Changed From baclofen 10 mg PO DAILY To baclofen 20mg at night 20 mg (2 x 10 mg) PO DAILY 60 tabs 3RF Coding Level of Care Code Est Pt Level 4 (09358) Diagnoses Spastic hemiplegia of right dominant side due to noncerebrovascular etiology G81.11 Hemiplegia etiology: non-cerebrovascular Tethered cord syndrome Q06.8
[2024-04-03 09:54] VITALS: BMI 33.3
--- OUTSIDE RECORDS SUMMARY | 2024-04-03 11:14 | XMS_ITS | Clinical Summary ---
Author Organization [facility] Address [address] [place] [address] Care Team Providers Care On Air Personality Name Role Phone Johann Frost MD Primary Care Provider Social History Tobacco Use Types Packs/Day Years Used Date Smoking Tobacco: Never Assessed Comments Unknown Sex and Gender Information Value Date Recorded Sex Assigned at Not on file Legal Sex Female 10:16 PM EST Gender Identity Not on file Sexual Orientation Not on file Plan of Treatment Health Maintenance Due Date Last Done Comments DTaP,Tdap,and Td Vaccines (1 - Tdap) 02/22/1984 Hepatitis B Vaccines (1 of 3 - 19+ 3-dose series) 02/22/1984 Cervical Cancer Screening: P ap Smear 1986 Pneumococcal Vaccine: 50+ Ye ars (1 of 1 - PCV) 2015 Zoster Vaccines (1 of 2) 2015 Breast Cancer Screening 09/22/2020 09/22/2018 COVID-19 Vaccine ( - 2023-2 5 season) 2023 Influenza Vaccine (#1) 2023 RSV Immunization Patients 60 + Years Old (1 - 1-dose 75+ series) 02/22/2040 HIB Vaccines Aged Out No longer eligi ble based on patient's age to complete this topic HPV Vaccines Aged Out No longer eligi ble based on patient's age to complete this topic Hepatitis A Vaccines Aged Out No long er eligible based on patient's age to complete this topic IPV Vaccines Aged Out No longer eligi ble based on patient's age to complete this topic MMR Vaccines Aged Out No longer eligi ble based on patient's age to complete this topic Meningococcal ACWY Vaccine Aged Out N o longer eligible based on patient's age to complete this topic Meningococcal B Vacine Aged Out No lo nger eligible based on patient's age to complete this topic Pneumococcal Vaccine: Pediat rics (0 to 5 Years) and At-Risk Patients (6 to 64 Years) Aged Out No longer eligi ble based on patient's age to complete this topic RSV Immunization Patients Un michael 20 months Aged Out No longer eligible b ased on patient's age to complete this topic Varicella Vaccines Aged Out No longer eligible based on patient's age to complete this topic Procedures Procedure Name Priority Date/Time Associated Diagnosis Comments [facility] SCREENING DIGITAL Routine 09/22/2018 7:52 AM EDT Encounter for screening mammogram for malignant neoplasm of breast from Last 3 Months or Most Recently Relevant to Health Maintenance Results * [facility] SCREENING DIGITAL (09/22/2018 7:52 AM EDT) Anatomical Region Laterality Modality Mammography 09/18/2018 2:54 PM EDT Narrative 09/22/2018 7:52 AM EDT [facility] Diagnostic Imaging Department [address] [place] [address] Patient: ??JEANETTE CORADO ?/Age/Sex: 1965 - 53 - F Unit#: ??[id number] ? Location/Status: ??SPDIMAM/REG CLI ? Mnemonic/Ordering Site: ??DIGSC/SPMAM Ordering Physician: ??LINDY GRADY MD [facility] Screening Digital - 09/21/18 - 1022 INDICATION: SCREENING COMPARISON: [facility] mammograms dating back to ?? 04/17/2012 TECHNIQUE: CC and MLO views of the breasts were obtained, using full field digital mammography with 3D tomosynthesis views in the MLO projection. Computer aided detection with the Simio.2-H was employed. FINDINGS: The breasts contain scattered fibroglandular tissues. No suspicious masses, suspicious microcalcifications, or areas of architectural distortion are identified. ??Rare benign-appearing breast calcifications are present bilaterally. There are no secondary signs of breast malignancy. Compared to the prior exam, no adverse interval change. IMPRESSION: ??No specific mammographic evidence of breast malignancy. Lack of an imaging correlate should not deter or delay biopsy of a clinically significant palpable finding. BI-RADS ??- Category 2 - Benign finding 3342F, 7025F Annual screening mammography is recommended. Patient entered into a reminder system with a target date for the next mammogram. (G0202 / [id number]) , ??[id number] Dictating Physician: ??TRENT PIRES MD Electronically Signed by: ??TRENT PIRES MD Dic Date/Time: ??09/22/18 0748 Sign date/Time: ??09/22/18 0752 Procedure Note Trent Pires - 01/25/2022 [facility] Diagnostic Imaging Department [address] [place] [address] Patient: CORADO,JEANETTE Markham /Age/Sex: 1965 - 53 - F Unit#: [id number] Location/Status: [facility] CLI Mnemonic/Ordering Site: [facility] Ordering Physician: LINDY GRADY MD [facility] Screening Digital - 09/21/18 - 1022 INDICATION: SCREENING COMPARISON: [facility] mammograms dating back to 04/17/2012 TECHNIQUE: CC and MLO views of the breasts were obtained, using full field digital mammography with 3D tomosynthesis views in the MLO projection. Computer aided detection with the Deanslist 7.2-H was employed. FINDINGS: The breasts contain scattered fibroglandular tissues. No suspicious masses, suspicious microcalcifications, or areas ofarchitectural distortion are identified. Rare benign-appearing breast calcificationsare present bilaterally. There are no secondary signs of breast malignancy. Compared to the prior exam, no adverse interval change. IMPRESSION: No specific mammographic evidence of breast malignancy. Lack of an imaging correlate should not deter or delay biopsy of aclinically significant palpable finding. BI-RADS - Category 2 - Benign finding 3342F, 7025F Annual screening mammography is recommended. Patient entered into a reminder system with a target date for the next mammogram. G0202 / [id number] , [id number] Dictating Physician: TRENT PIRES MD Electronically Signed by: TRENT PIRES MD Dic Date/Time: 09/22/18 0748 Sign date/Time: 09/22/18 0757 Lindy Grady MD IMG BI PROCEDURES Final Result from Last 3 Months or Most Recently Relevant to Health Maintenance Care Teams On Air Personality Relationship Specialty Start Date End Date Johann Frost MD [address] [place] [address] PCP - General 02/14/08
== END 2024-04-03 10:54 | disposition home or self-care (01) ==
PROVIDERS: Visit Provider Physical Medicine & Rehabilitation
DX: G81.11 Spastic hemiplegia affecting right dominant side (principal); Q06.8 Other specified congenital malformations of spinal cord
CPT/HCPCS: 99214

== ENCOUNTER → 2024-04-03 09:47 | Outpatient (BNVA) | payer OTHER, SELFPAY | PROVIDERS: Visit Provider Physical Medicine & Rehabilitation | DX: G81.11 Spastic hemiplegia affecting right dominant side (principal); Q06.8 Other specified congenital malformations of spinal cord | CPT/HCPCS: 99212 ==

== ENCOUNTER 2024-04-18 08:59 | Outpatient (AMB) | payer OTHER, SELFPAY ==
--- NOTE | 2024-04-18 09:00 | A.OFFVIS_ITS ---
Intake Visit Reasons: Tel-Botox follow up- Intake Note: Ghazala Vargas 59 yr old female presents today for a telehealth visit via phone call for a follow up visit for her botox injection from 02/13/24. States she has no changes to her health. Product Management Consultant Required: No Allergies amoxicillin [From AUGMENTIN] Allergy (Mild, Verified 04/18/24 09:01) HIVES azithromycin [From ZITHROMAX] Allergy (Mild, Verified 04/18/24 09:01) HIVES clavulanic acid [From AUGMENTIN] Allergy (Mild, Verified 04/18/24 09:01) HIVES doxycycline [DOXYCYCLINE] Allergy (Mild, Verified 04/18/24 09:01) HIVES oxycodone [OXYCODONE] Allergy (Mild, Verified 04/18/24 09:01) CHEST PAIN Penicillins [PCN] Allergy (Mild, Verified 04/18/24 09:01) HIVES acetaminophen [From VICODIN] Allergy (Unknown, Verified 04/18/24 09:01) UNKNOWN hydrocodone [From VICODIN] Allergy (Unknown, Verified 04/18/24 09:01) UNKNOWN Medication List - Last Reconciled 04/18/24 by Estrella Fernandez RN baclofen 20 mg (2 x 10 mg) PO DAILY fluticasone propionate 50 mcg/actuation (Flonase Allergy Relief) 1 spray intranasal DAILY hydroxyzine HCl 50 mg PO BEDTIME ipratropium-albuterol 20-100 mcg/actuation (Combivent Respimat) 1 puff inhalation Q6H linaclotide (Linzess) 72 mcg PO DAILY lisinopril 10 mg PO DAILY loratadine (Allergy Relief (loratadine)) 10 mg PO DAILY ondansetron 4 mg PO Q8H oxybutynin chloride 5 mg PO BID venlafaxine ER 150 mg PO DAILY HPI Comments Details: Telephone follow up today to see how she is doing with increased dose of ba clofen. Patient says that 20 mg q.h.s. was too much for her, felt heart rate going fast. So she change it to 10 mg in the afternoon and 10 mg at night. This regimen is doing much better for her, with less shaking/tremors on her foot at night. It is not 100% but it is much better since last time we saw her. PFSH Medical History Spastic hemiplegia affecting right dominant side Spasticity De Quervain's tenosynovitis, right Anxiety with depression Chronic GERD Tethered cord syndrome Hypertension Hyperlipidemia Social History Alcohol intake: never Patient Tobacco Use Status: Never used Tobacco Current occupational status: disabled Telehealth Telehealth Telehealth Platform: Telephone Location of provider rendering services: practice address Location of patient: address on file Patient Identification confirmed using: Name, : Yes Telehealth method: voice only Patient verbally consented to treatment: Yes Patient verbally consented to billing insurance company: Yes Patient informed of any privacy concerns related to visit: Yes Minutes spent on Phone/Video with Pt.: 10 Assessment & Plan Assessment & Plan (1) Spastic hemiplegia affecting right dominant side: Code(s): G81.11 - Spastic hemiplegia affecting right dominant side Category: Medical Qualifiers: Hemiplegia etiology: non-cerebrovascular Qualified Code(s): G81.11 - Spastic hemiplegia affecting right dominant side (2) Tethered cord syndrome: Code(s): Q06.8 - Other specified congenital malformations of spinal cord Category: Medical Plan Continue with oral baclofen 10 mg b.i.d. as patient has been taking. This is help her prevent the pain and tremors of the foot at night. Next botulinum toxin injection scheduled for May 07, 15:00. After much discussion with patient and daughter, they have decided to have me inject the same dosing that I did previously, rather than increasing to the over maximal dose that Dr. Teague was injecting to the tibialis posterior. I think this is very reasonable. Maybe I could increase to tibialis posterior just a little bit but not as much as 200 units. Assessment and plan discussed with patient, and patient was agreeable. All questions were answered thoroughly. Ghazala Hurd MD, GLENN Board Certified, [place] Board of Physical Medicine and Rehabilitation (ABPMR) Board Certified, [place] Board of Electrodiagnostic Medicine (ABEM) Medications: Changed From baclofen 20mg at night 20 mg (2 x 10 mg) PO DAILY 60 tabs 3RF To baclofen 10 mg PO BID 60 tabs 5RF Coding Level of Care Code Tele Est Pt Level 3 (88774) Diagnoses Spastic hemiplegia of right dominant side due to noncerebrovascular etiology G81.11 Hemiplegia etiology: non-cerebrovascular Tethered cord syndrome Q06.8
--- OUTSIDE RECORDS SUMMARY | 2024-04-18 09:27 | XMS_ITS | Encounter Summary ---
Author Organization [facility] Address [address] [place] [address] Care Team Providers Care Regulator Pin Inserter Name Role Phone Andria Frost Primary Care Provider Fela vailable Muna Ventura Unavailable Unavailable Encounter Details Date Type Department Care Team Description 05/31/2017 Transfer Records Medical Records [address] [place] [address] Abstract, Provider Social History Tobacco Use Types Packs/Day Years Used Date Smoking Tobacco: Former Cigarettes Q uit: 2017 Smokeless Tobacco: Never Alcohol Use Standard Drinks/Week Comments No 0 (1 standard drink = 0.6 oz pur e alcohol) Sex Assigned at Date Recorded Not on file documented as of this encounter Plan of Treatment Not on file documented as of this encounter Visit Diagnoses Not on filedocumented in this encounter Care Teams Regulator Pin Inserter Relationship Specialty Start Date End Date Andria Frost PCP - General 02/14/08 Muna Ventura PCP - Recycling Specialist 02/14/08 documented as of this encounter
--- OUTSIDE RECORDS SUMMARY | 2024-04-18 09:27 | XMS_ITS | Clinical Summary ---
Author Organization [facility] Address [address] [place] [address] Care Team Providers Care Leather Belt Shaper Name Role Phone Johann Frost MD Primary [...] Procedure Name Priority Date/Time Associated Diagnosis Comments [facility] SCREENING DIGITAL Routine 09/22/2018 7:52 AM EDT Encounter for screening mammogram for malignant neoplasm of breast from Last 3 Months or Most Recently Relevant to Health Maintenance Results * [facility] SCREENING DIGITAL (09/22/2018 7:52 AM EDT) Anatomical Region Laterality Modality Mammography 09/18/2018 2:54 PM EDT Narrative 09/22/2018 7:[address] [facility] Diagnostic Imaging Department [address] [place] [address] Patient: ??JEANETTE CORADO ?/Age/Sex: 1965 - 53 - F Unit#: ??[id number] ? Location/Status: ??SPDIMAM/REG CLI ? Mnemonic/Ordering Site: ??DIGSC/SPMAM Ordering Physician: ??LINDY GRADY MD [facility] Screening Digital - 09/21/18 - 1022 INDICATION: SCREENING COMPARISON: [facility] mammograms dating back to ?? 04/17/2012 TECHNIQUE: CC and MLO views of the breasts were obtained, using full field digital mammography with 3D tomosynthesis views in the MLO projection. Computer aided detection with the Apartama.2-H was employed. FINDINGS: The breasts contain scattered [...] date for the next mammogram. (G0202 / [id number]) , ??[id number] Dictating Physician: ??TRENT PIRES MD Electronically Signed by: ??TRENT PIRES MD Dic Date/Time: ??09/22/18 0748 Sign date/Time: ??09/22/18 0752 Procedure Note Trent Pires - 01/25/2022 [facility] Diagnostic Imaging Department [address] [place] [address] Patient: CORADO,JEANETTE Markham /Age/Sex: 1965 - 53 - F Unit#: [id number] Location/Status: [facility] CLI Mnemonic/Ordering Site: [facility] Ordering Physician: LINDY GRADY MD [facility] Screening Digital - 09/21/18 - 1022 INDICATION: SCREENING COMPARISON: [facility] mammograms dating back to 04/17/2012 TECHNIQUE: CC and MLO views of the breasts were obtained, using full field digital mammography with 3D tomosynthesis views in the MLO projection. Computer aided detection with the Responde Ai 7.2-H was employed. FINDINGS: The breasts contain [...] date for the next mammogram. G0202 / [id number] , [id number] Dictating Physician: TRENT PIRES MD Electronically Signed by: TRENT PIRES MD Dic Date/Time: 09/22/18 0748 Sign date/Time: 09/22/18 0759 Lindy Grady MD IMG BI PROCEDURES Final Result from Last 3 Months or Most Recently Relevant to Health Maintenance Care Teams Leather Belt Shaper Relationship Specialty Start Date End Date Johann Frost MD [address] [place] [address] PCP - General 02/14/08
--- OUTSIDE RECORDS SUMMARY | 2024-04-18 09:27 | XMS_ITS | Clinical Summary ---
Author Organization [facility] Address [address] [place] [address] Care Team Providers Care Railcar Switcher Name Role Phone Andria Frost Primary Care Provider Muna Lawrence Unavailable Unavailable Allergies Active Allergy Reactions Severity Noted Date Comments Aspirin 05/29/2017 Augmentin 05/29/2017 Doxycycline 05/29/2017 Penicillins 05/29/2017 Apap-Fd&C Blue #1-Oxycodone 05/30/19 18 Hydrocodone-Acetaminophen 05/29/2017 Azithromycin 05/29/2017 Medications Medication Sig Dispensed Refills Start Date End Date Status venlafaxine (EFFEXOR-XR) 75 MG 24 hr capsule Take 75 mg by mouth daily. 0 Active venlafaxine (EFFEXOR-XR) 37.5 MG 24 hr capsule Take 37.5 mg by mouth daily. 0 Active gabapentin (NEURONTIN) 300 MG capsule Take 300 mg by mouth 2 times daily. 3 tabs 2 times daily 0 Active lorazepam (ATIVAN) 0.5 MG tablet Take 0.5 mg by mouth every 6 hours as needed. 0 Active baclofen (LIORESAL) 10 MG tablet Take 10 mg by mouth daily. 0 Active Polyethylene Glycol 3350 (MIRALAX OR) Take by mouth 2 Times Daily. 0 Active Meclizine HCl 12.5 MG Tab Take by mouth 2 Times Daily. 0 Active oxybutynin (DITROPAN-XL) 10 MG 24 hr tablet Take 10 mg by mouth daily. 0 Active Social History Tobacco Use Types Packs/Day Years Used Date Smoking Tobacco: Former Cigarettes Q uit: 2017 Smokeless Tobacco: Never Alcohol Use Standard Drinks/Week Comments No 0 (1 standard drink = 0.6 oz pur e alcohol) Sex Assigned at Date Recorded Not on file Last Filed Vital Signs Vital Sign Reading Time Taken Comments Blood Pressure 132/92 05/29/2017 8:40 AM EDT Pulse 66 05/29/2017 8:40 AM EDT Temperature - - Respiratory Rate 14 05/29/2017 8:40 AM EDT Oxygen Saturation - - Inhaled Oxygen Concentration - - Weight 79.4 kg (175 lb) 05/29/2017 8:40 AM EDT Height 167.6 cm (5' 6 ) 05/29/2017 8:40 AM EDT Body Mass Index 28.25 05/29/2017 8:40 AM EDT Plan of Treatment Health Maintenance Due Date Last Done Comments Covid-19 Vaccine (#1) 1965 DEPRESSION SCREEN 1977 HEPATITIS C SCREENING 1983 DTAP/TDAP/TD (1 - Tdap) 02/22/1984 CHOLESTEROL SCREENING 1985 CERVICAL CANCER SCREENING 1986 BASELINE HEALTH EXAM 40-64 2005 MAMMOGRAM 2005 COLON CANCER SCREENING 2015 SHINGLES VACCINE (1 of 2) 2015 INFLUENZA (#1) 2023 BMI CHECK/ADVISE 02/06/2024 PNEUMOCOCCAL VACCINE FOR HIGH RISK PATIENTS (#1) 02/21 Care Teams Railcar Switcher Relationship Specialty Start Date End Date Andria Frost PCP - General 02/14/08 Muna Ventura PCP - Type Soldering Machine Tender 02/14/08
== END 2024-04-18 09:22 | disposition home or self-care (01) ==
LOC: HO.HOS 08:59
PROVIDERS: Visit Provider Physical Medicine & Rehabilitation
DX: G81.11 Spastic hemiplegia affecting right dominant side (principal); Q06.8 Other specified congenital malformations of spinal cord
CPT/HCPCS: 98012

== ENCOUNTER → 2024-04-18 08:59 | Outpatient (BNVA) | payer OTHER, SELFPAY | PROVIDERS: Visit Provider Physical Medicine & Rehabilitation ==

== ENCOUNTER 2024-05-07 15:08 | Outpatient (REF) | payer OTHER, SELFPAY ==
--- NOTE | 2024-05-07 15:12 | EMG_ITS ---
PROCEDURE PERFORMED: Botulinum toxin chemodenervation DIAGNOSIS: spastic hemiparesis ICD10: G81.11 affecting right dominant side PREVIOUS TREATMENT AND RESPONSE: Oral antispasticity medications and physical therapy without response Last injection: 02/13/24, 11/07/23 Exam 04/03/24: At rest, right foot is inverted and slightly plantar flexed.? But can passively dorsiflex and alla back to neutral, without resistance, without clonus, Gayatri 0 on dorsiflexion, plantarflexion and inversion; Gayatri 0 on knee flexion and extension. However, after ranging the foot, I did see that toes flexed in and foot turned inwards stiffly for a few minutes. No significant change on exam today. TOXIN USED: Botox PROCEDURE: The procedure was explained to the patient/caregiver, and informed consent was obtained. The patient laid down on bed. Right leg was cleansed with betadine in the usual sterile manner. A 26 gauge needle electrode was used. Muscle Units per site Number of sites Units per muscle Right TP 50 2 100 Right MG 50 2 100 Right LG 50 2 100 EMG-guidance was used during the injection. A total of 300 units injected. 0 units wastage. Vial size: 100 units per vial Dilution: 100 units per 2 ml of preservative free saline The patient tolerated the procedure well without complications. The patient was observed for 30 minutes, before being discharged with post procedure instructions. CODING: CPT code: 35713 1 ext, 1-4 muscles Guidance code: 68560 EMG guidance for chemodenervation J code: Botox J0585 [facility] code: 3080-0711-84 Lot #: [id number], [id number] [facility]
--- OUTSIDE RECORDS SUMMARY | 2024-05-07 17:33 | XMS_ITS | Clinical Summary ---
Author Organization [facility] Address [address] [place] [address] Care Team Providers Care Funeral Pre Need Consultant Name Role Phone Johann Frost MD Primary [...] 2023 Influenza Vaccine (#1) 2023 RSV Immunization Adult Patie nts (1 - 1-dose 75+ series) 02/22/2040 HIB [...] Procedure Name Priority Date/Time Associated Diagnosis Comments [facility] SCREENING DIGITAL Routine 09/22/2018 7:52 AM EDT Encounter for screening mammogram for malignant neoplasm of breast from Last 3 Months or Most Recently Relevant to Health Maintenance Results * [facility] SCREENING DIGITAL (09/22/2018 7:52 AM EDT) Anatomical Region Laterality Modality Mammography 09/18/2018 2:54 PM EDT Narrative 09/22/2018 7:52 AM EDT [facility] Diagnostic Imaging Department [address] [place] [address] Patient: ??JEANETTE CORADO ?/Age/Sex: 1965 - 53 - F Unit#: ??[id number] ? Location/Status: ??SPDIMAM/REG CLI ? Mnemonic/Ordering Site: ??DIGSC/SPMAM Ordering Physician: ??LINDY GRADY MD [facility] Screening Digital - 09/21/18 - 1022 INDICATION: SCREENING COMPARISON: [facility] mammograms dating back to ?? 04/17/2012 TECHNIQUE: CC and MLO views of the breasts were obtained, using full field digital mammography with 3D tomosynthesis views in the MLO projection. Computer aided detection with the EverythingMe.2-H was employed. FINDINGS: The breasts contain scattered [...] date for the next mammogram. (G0202 / 52510) , ??[id number] Dictating Physician: ??TRENT PIRES MD Electronically Signed by: ??TRENT PIRES MD Dic Date/Time: ??09/22/18 0748 Sign date/Time: ??09/22/18 0752 Procedure Note Trent Pires - 01/25/2022 [facility] Diagnostic Imaging Department [address] [place] [address] Patient: JEANETTE CORADO Shahrzad /Age/Sex: 1965 - 53 - F Unit#: [id number] [facility] Ordering Physician: LINDY GRADY MD [facility] Screening Digital - 09/21/18 - 1022 INDICATION: SCREENING COMPARISON: [facility] mammograms dating back to 04/17/2012 TECHNIQUE: CC and MLO views of the breasts were obtained, using full field digital mammography with 3D tomosynthesis views in the MLO projection. Computer aided detection with the Splinter.me 7.2-H was employed. FINDINGS: The breasts contain [...] date for the next mammogram. G0202 / [id number] , [id number] Dictating Physician: TRENT PIRES MD Electronically Signed by: TRENT PIRES MD Dic Date/Time: 09/22/18 0748 Sign date/Time: 09/22/18 0753 Lindy Grady MD IMG BI PROCEDURES Final Result from Last 3 Months or Most Recently Relevant to Health Maintenance Care Teams Funeral Pre Need Consultant Relationship Specialty Start Date End Date Johann Frost MD [address] [place] [address] PCP - General 02/14/08
== END 2024-05-07 15:09 | disposition home or self-care (01) ==
LOC: HO.NEURO 15:08
PROVIDERS: PCP Student in an Organized Health Care Education/Training Program; Visit Provider Physical Medicine & Rehabilitation
DX: G81.11 Spastic hemiplegia affecting right dominant side (principal)
CPT/HCPCS: 64642; 95874; J0585

== ENCOUNTER → 2024-05-07 15:12 | Outpatient (BNV) | payer OTHER, SELFPAY | PROVIDERS: PCP Student in an Organized Health Care Education/Training Program; Visit Provider Physical Medicine & Rehabilitation | DX: G81.11 Spastic hemiplegia affecting right dominant side (principal) | CPT/HCPCS: 64642; 95874 ==

== ENCOUNTER 2024-06-13 11:13 | Outpatient (AMB) | payer OTHER, SELFPAY ==
--- NOTE | 2024-06-13 11:18 | A.OFFVIS_ITS ---
Intake Visit Reasons: O/V S/P botox injection rt leg 05/08/24 Intake Note: Ghazala Vargas 59 yr old female presents today for her follow up visit for her right leg S/P botox injection to her right leg that were done on 05/08/[address] Ortiz. Patient states she hasn't noticed any difference in her pain. She mentions that her pain is constant. Allergies amoxicillin [From AUGMENTIN] Allergy (Mild, Verified 06/13/24 11:23) HIVES azithromycin [From ZITHROMAX] Allergy (Mild, Verified 06/13/24 11:23) HIVES clavulanic acid [From AUGMENTIN] Allergy (Mild, Verified 06/13/24 11:23) HIVES doxycycline [DOXYCYCLINE] Allergy (Mild, Verified 06/13/24 11:23) HIVES oxycodone [OXYCODONE] Allergy (Mild, Verified 06/13/24 11:23) CHEST PAIN Penicillins [PCN] Allergy (Mild, Verified 06/13/24 11:23) HIVES acetaminophen [From VICODIN] Allergy (Unknown, Verified 06/13/24 11:23) UNKNOWN hydrocodone [From VICODIN] Allergy (Unknown, Verified 06/13/24 11:23) UNKNOWN HPI Comments Details: Pain is the same on the toes, toes still curl all the time. Taking Baclofen 10mg BID. Jasso area is much better, only once in a while at night that it bothers her. Wearing the AFO today. No falls since May. Nerve stimulator under Pain Management was adjusted recently, but cannot help all the way to the foot. History of tethered cord syndrome. Right leg weaker side and numb. Uses an AFO. Was getting Botox injection from Dr. Teague, last 06/21/2023 per notes and patient[address] Dr. Teague had been injecting 200 units to posterior tibialis, 50 units in medial gastrocnemius, 50 units to soleus, total 300 units. I have explained to patient before that 200 units to posterior tibialis is above recommended maximum of 75 units. Injections done by me: 11/07/23, 02/13/24, 05/07/2024: Muscle Units per site Number of sites Units per muscle Right TP 50 2 100 Right MG 50 2 100 Right LG 50 2 100 PFSH Medical History Spastic hemiplegia affecting right dominant side Spasticity De Quervain's tenosynovitis, right Anxiety with depression Chronic GERD Tethered cord syndrome Hypertension Hyperlipidemia Social History Alcohol intake: never Patient Tobacco Use Status: Never used Tobacco Current occupational status: disabled Physical Exam At rest, right foot is inverted and slightly plantar flexed. But can passively dorsiflex and alla back to neutral, without resistance, without clonus, Gayatri 0 on dorsiflexion, plantarflexion and inversion. Right big toe and 2nd toe extended. Right 3rd to 5th toes slightly flexed. Assessment & Plan Assessment & Plan (1) Spastic hemiplegia affecting right dominant side: Code(s): G81.11 - Spastic hemiplegia affecting right dominant side Category: Medical Qualifiers: Hemiplegia etiology: non-cerebrovascular Qualified Code(s): G81.11 - Spastic hemiplegia affecting right dominant side (2) Tethered cord syndrome: Code(s): Q06.8 - Other specified congenital malformations of spinal cord Category: Medical Plan Overall, patient is convinced that benefits of botulinum toxin injections outweigh risk, despite not achieving complete resolution of her pain. We will continue with botulinum toxin injection treatment. Next injection is August 06, 15:00. I will request for 400 units. I have on upcoming conference with a hand ornament maker up in [place] and I can ask for advised about what else I can do for the patient. Continue with oral baclofen 10 mg b.i.d. as patient has been taking. Assessment and plan discussed with patient, and patient was agreeable. All questions were answered thoroughly. Ghazala Hurd MD, GLENN Board Certified, [place] Board [employer] Physical Medicine and Rehabilitation (ABPMR) Board Certified, [place] Board of Electrodiagnostic Medicine (ABEM) Coding Level of Care Code Est Pt Level 4 (63370) Diagnoses Spastic hemiplegia of right dominant side due to noncerebrovascular etiology G81.11 Hemiplegia etiology: non-cerebrovascular Tethered cord syndrome Q06.8
--- OUTSIDE RECORDS SUMMARY | 2024-06-13 11:41 | XMS_ITS | Clinical Summary ---
Author Organization [employer] Address [address] [facility] [place] [address] Care Team Providers Care Lathe Puller Name Role Phone Matteo Bangura MD RESIDENT Primary Care P rovider Allergies Active Allergy Reactions Criticality Noted Date Comments Aspirin 05/29/2017 Azithromycin 05/29/2017 Doxycycline 05/29/2017 Hydrocodone-Acetaminophen 05/29/2017 Other 05/29/2017 Penicillins 05/29/2017 Medications baclofen (LIORESAL) 10 MG tablet TAKE 1 TABLET BY MOUTH TWICE A DAY Active Symbicort 160-4.5 mcg/actuation inhaler 5 Active fluticasone furoate-vilante roL (BREO ELLIPTA) 200-25 mcg/dose dsdv INHALE 1 PUFF BY MOUTH EVERY DAY 5 Active hydrOXYzine (ATARAX) 50 MG tablet TAKE 1 TABLET BY MOUTH EVERY DAY NEEDED FOR ANXIETY OR INSOMNIA 5 Active ibuprofen (MOTRIN) 800 MG tablet TAKE 1 TABLET BY MOUTH THREE TIMES DAILY NEEDED FOR PAIN 5 Active lidocaine (LIDODERM) 5 % APPLY 1 PATCH TOPICALLY NEEDED FOR PAIN,REMOVE AFTER 12 HOURS 5 Active lisinopriL (PRINIVIL) 20 MG tablet TAKE 1 TABLET BY MOUTH EVERY DAY 5 Active oxybutynin (DITROPAN) 5 MG tablet TAKE 1 TABLET BY MOUTH TWICE A DAY 5 Active predniSONE (DELTASONE) 10 MG tablet 5 Active sulfamethoxazol e-trimethoprim (BACTRIM) 400-80 mg tablet 5 Active venlafaxine (EFFEXOR-XR) 150 MG 24 hr capsule TAKE 1 CAPSULE BY MOUTH EVERY DAY Active acetaminophen (TYLENOL) 500 MG tablet Take 2 tablets (1,000 mg total) by mouth every 8 (eight) hours as needed for pain, headaches or fever (Max 6 tablets/24 hrs) for up to 7 days 5 05/22/19 25 Encounters Date Type Department Care Team Description 05/14/2024 4:20 PM EDT Office Visit [facility] [address] [place] [address] Jordon Pal NP Upper respiratory infection, acute (Primary Dx); Acute pharyngitis, unspecified etiology; Fever, unspecified fever cause; Myalgia; Acute nonintractable headache, unspecified headache type; Hypertension, unspecified type; Uncomplicated asthma, unspecified asthma severity, unspecified whether persistent (HHS/HCC) from Last 3 Months Social History Tobacco Use Types Packs/Day Years Used Date Smoking Tobacco: Former Cigarettes Passive Smoke Exposure: Never Smokeless Tobacco: Never Tobacco Cessation:Counseling Given: Yes Comments:Congratulated patient on becoming a non-smoker. Comments No Sex and Gender Information Value Date Recorded Sex Assigned at Not on file Legal Sex Female 4:13 PM EDT Gender Identity Not on file Sexual Orientation Not on file Last Filed Vital Signs Vital Sign Reading Time Taken Comments Blood Pressure 123/87 05/14/2024 4:29 PM EDT Pulse 88 05/14/2024 4:29 PM EDT Temperature 36.7 ??C (98.1 ??F) 05/14/2024 4:29 PM ED T Respiratory Rate 14 05/14/2024 4:29 PM EDT Oxygen Saturation 97% 05/14/2024 4:29 PM EDT Inhaled Oxygen Concentration - - Weight - - Height - - Body Mass Index - - Plan of Treatment Health Maintenance Due Date Last Done Comments Colorectal Cancer: COLONOSCO PY Screening every 10 yrs (or Modifier) 1965 Depression: Screening Annual ly using PHQ-2/9 in Adults 18 yrs or above (or HM Modifier)([facility]) 1983 Hepatitis C Virus Infection in Adolescents and Adults: Screening (or Modifier) ([facility]) 1983 LA Screening: Once using ST OP-BANG Questionnaire for Adults with Conditions or high BMI([facility]) 1983 SDOH Screening Reminder: Sonia ually for all adults ([facility]) 1983 DTaP/Tdap/Td Vaccines ([facility]) (1 - Tdap) 02/22/1984 Pneumococcal Vaccination Scr eening: Patients 50+ yrs of age ([facility]) (1 of 2 - PCV) 02/22/1984 Cervical Cancer Screenin 1-65 yrs of age (or Modifier) 1986 Cervical Cancer Screening: P ap every 3 yrs pts age 21-65 1986 Cervical Cancer: Pap Screeni ng with Modifier timing ([facility]) 1986 Cervical Cancer: hrHPV alone or with cotesting Pap for Pts 30-65yrs screening every 5yrs ([facility]) 1986 Colorectal Cancer Screening 45 -75 Yrs (or HM Modifier ) 2010 Colorectal Cancer: FLEXIBLE SIGMOIDOSCOPY Screening every 5 yrs 2010 Colorectal Cancer: Fecal Imm unochemical Test (FIT) Annually [facility] 2010 Colorectal Cancer: High-sens itivity gFOBT Screening Annually [facility] 2010 Colorectal Cancer: Stool Col oguard Screening every 3 yrs 2010 Colorectal Cancer:CT Colonography Screening every 5 yr s 2010 Lipid Screening: Every 5 yrs for Women aged 45+ (or HM Modifier) ([facility]) 2011 Breast Cancer: Screening Sonia ually age 50-74 yrs (or HM Modifier)([facility]) 2015 Lung Cancer: Screening Annua lly in adults aged 50 to 80 years (or HM Modifiers)([facility]) 2015 Zoster/Shingles Vaccine Seri es Screening: Adults aged 18+ yrs (or HM Modifiers)([facility]) (1 of 2) 2015 COVID-19 Vaccine Screening: Initial Series and Booster Status ([facility]) (2023- season) 2023 Flu Vaccination: Yearly for ages 18mos through 64 years (or Modifier)([facility]) 09/05/2024 Medical Devices Not on file Procedures Procedure Name Priority Date/Time Associated Diagnosis Comments LUMIRADX SARS-COV-2 RAPID RESULT ANTIGEN TEST Routine 05/14/2024 4:43 PM EDT Acute pharyngitis, unspecified etiology Fever, unspecified fever cause Myalgia Acute nonintractable headache, unspecified headache type INFLUENZA MOLECULAR POCT Routine 05/14/2024 4:42 PM EDT Fever, unspecified fever cause Myalgia Acute nonintractable headache, unspecified headache type STREP MOLECULAR POCT Routine 05/14/2024 4:41 PM EDT Acute pharyngitis, unspecified etiology from Last 3 Months Results * LumiraDX SARS-COV-2 Rapid Result Antigen Test (05/14/2024 4:43 PM EDT) LumiraDX SARS-COV-2 Rapid Result Antigen Test Negative Negative, Invalid, Not Tested, ERRONEOUS SANZ [id number] INTERNAL CONTROLS VALID Yes--Test working appropriately SANZ [id number] Expiration Date 11/26/2024 SANZ [id number] Lot Number [id number] SANZ [id number] LUMIRA TEST BRAND Lumiradx Sars-Cov-2 AG Test SANZ [id number] Other 05/14/2024 4:43 PM EDT us Jordon Pal NP POINT OF CARE TEST ORDERABLES Final Result SANZ [id number] [address] [place] [address], * Influenza Molecular POCT (05/14/2024 4:42 PM EDT) POC MOLECULAR INFLUENZA A AGN Negative Negative, Invalid, Not Tested, ERRONEOUS SANZ [id number] POC MOLECULAR INFLUENZA B AGN Negative Negative, Invalid, Not Tested, ERRONEOUS SANZ [id number] INTERNAL CONTROLS VALID Yes--Test working appropriately SANZ [id number] Expiration Date 09/12/2025 SANZ [id number] Lot Number [id number] SANZ [id number] TEST BRAND NAME _ MOLECULAR FLU ID Now Flu SANZ [id number] Other 05/14/2024 4:42 PM EDT us Jordon Pal POINT OF CARE TEST ORDERABLES Final Result Performing Organization Address [facility]/ZIP Co de Phone Number SANZ [id number] [address] [place] [address], * Strep Molecular POCT (05/14/2024 4:41 PM EDT) [facility] POC MOLECULAR STREP A Negative Negative, Invalid, Not Tested, ERRONEOUS SANZ [id number] INTERNAL CONTROLS VALID Yes--Test working appropriately SANZ [id number] Expiration Date 11/19/2025 SANZ [id number] Lot Number [id number] SANZ [id number] TEST BRAND NAME_ STREP MOLECULAR ID Now Strep SANZ [id number] Throat 05/14/2024 4:41 PM EDT Jordon Pal WATCH ASSEMBLY INSPECTOR POINT OF CARE TEST ORDERABLES Final Result Performing Organization Address [facility] Co de Phone Number SANZ [id number] [address] [place] [phone], from Last 3 Months Insurance [facility] Care Teams Lathe Puller Relationship Specialty Start Date End Date Matteo Bangura MD RESIDENT [address] [place] [address] PCP - General 05/14/24
--- OUTSIDE RECORDS SUMMARY | 2024-06-13 11:41 | XMS_ITS | Clinical Summary ---
Author Organization [facility] Address [address] [place] [address] Care Team Providers Care Bark Skinner Name Role Phone Johann Frost MD Primary [...] - 2023-2 5 season) 2023 Influenza Vaccine (Season Ended) 2024 RSV Immunization Adult Patie nts (1 - [...] age to complete this topic Meningococcal B Vaccine Aged Out No l onger eligible based on patient's age to complete [...] Procedure Name Priority Date/Time Associated Diagnosis Comments [facility] SCREENING DIGITAL Routine 09/22/2018 7:52 AM EDT Encounter for screening mammogram for malignant neoplasm of breast from Last 3 Months or Most Recently Relevant to Health Maintenance Results * [facility] SCREENING DIGITAL (09/22/2018 7:52 AM EDT) Anatomical Region Laterality Modality Mammography 09/18/2018 2:54 PM EDT Narrative 09/22/2018 7:52 AM EDT [facility] Diagnostic Imaging Department [address] [place], [place] [id number] Patient: ??JEANETTE CORADO ?/Age/Sex: 1965 - 53 - F Unit#: ??[id number] ? Location/Status: ??SPDIMAM/REG CLI ? Mnemonic/Ordering Site: ??DIGSC/SPMAM Ordering Physician: ??LINDY GRADY MD [facility] Screening Digital - 09/21/18 - 1022 INDICATION: SCREENING COMPARISON: [facility] mammograms dating back to ?? 04/17/2012 TECHNIQUE: CC and MLO views of the breasts were obtained, using full field digital mammography with 3D tomosynthesis views in the MLO projection. Computer aided detection with the Junko Tada.2-H was employed. FINDINGS: The breasts contain scattered [...] date for the next mammogram. (G0202 / 21224) , ??[id number] Dictating Physician: ??TRENT PIRES MD Electronically Signed by: ??TRENT PIRES MD Dic Date/Time: ??09/22/18 0748 Sign date/Time: ??09/22/18 0752 Procedure Note Trent Pires - 01/25/2022 [facility] Diagnostic Imaging Department [address] [place] [id number] Patient: SISJEANETTE Markham /Age/Sex: 1965 - 53 - F Unit#: [id number] [facility] Site[facility] Ordering Physician: LINDY GRADY MD [facility] Screening Digital - 09/21/18 - 1022 INDICATION: SCREENING COMPARISON: [facility] mammograms dating back to 04/17/2012 TECHNIQUE: CC and MLO views of the breasts were obtained, using full field digital mammography with 3D tomosynthesis views in the MLO projection. Computer aided detection with the Matchup 7.2-H was employed. FINDINGS: The breasts contain [...] date for the next mammogram. G0202 / 38819 , [id number] Dictating Physician: TRENT PIRES MD Electronically Signed by: TRENT PIRES MD Dic Date/Time: 09/22/18 0748 Sign date/Time: 09/22/18 0757 Lindy Grady MD IMG BI PROCEDURES Final Result from Last 3 Months or Most Recently Relevant to Health Maintenance Care Teams Bark Skinner Relationship Specialty Start Date End Date Johann Frost MD [address] [place] [address] PCP - General 02/14/08
== END 2024-06-13 11:51 | disposition home or self-care (01) ==
LOC: HO.HOS 11:14
PROVIDERS: PCP Student in an Organized Health Care Education/Training Program; Visit Provider Physical Medicine & Rehabilitation
DX: G81.11 Spastic hemiplegia affecting right dominant side (principal); Q06.8 Other specified congenital malformations of spinal cord
CPT/HCPCS: 99214

== ENCOUNTER → 2024-06-13 11:13 | Outpatient (BNVA) | payer OTHER, SELFPAY | PROVIDERS: PCP Student in an Organized Health Care Education/Training Program; Visit Provider Physical Medicine & Rehabilitation | DX: G81.11 Spastic hemiplegia affecting right dominant side (principal); Q06.8 Other specified congenital malformations of spinal cord | CPT/HCPCS: 99212 ==

== ENCOUNTER → 2024-08-06 12:14 | Outpatient (BNV) | payer OTHER, SELFPAY | PROVIDERS: PCP Student in an Organized Health Care Education/Training Program; Visit Provider Physical Medicine & Rehabilitation | DX: G81.11 Spastic hemiplegia affecting right dominant side (principal) | CPT/HCPCS: 64644; 95874 ==

== ENCOUNTER 2024-08-06 14:29 | Outpatient (REF) | payer OTHER, SELFPAY ==
--- NOTE | 2024-08-06 12:14 | EMG_ITS ---
PROCEDURE PERFORMED: Botulinum toxin chemodenervation DIAGNOSIS: spastic hemiparesis ICD10: G81.11 affecting right dominant side History of tethered cord syndrome. Right leg weaker side and numb.? Uses an AFO.? Was getting Botox injection from Dr. Teague, last 06/21/2023 per notes and patient.? Dr. Teague had been injecting 200 units to posterior tibialis, 50 units in medial gastrocnemius, 50 units to soleus, total 300 units. I have explained to patient before that 200 units to posterior tibialis is above recommended maximum of 75 units. Nerve stimulator under Pain Management was adjusted recently, but cannot help all the way to the foot. Injections done by me:? 11/07/23, 02/13/24, 05/07/2024. Exam 06/13/24:? At rest, right foot is inverted and slightly plantar flexed.? But can passively dorsiflex and alla back to neutral, without resistance, without clonus, Gayatri 0 on dorsiflexion, plantarflexion and inversion. Right big toe and 2nd toe extended.? Right 3rd to 5th toes slightly flexed. 08/06/24: Right foot pronated at rest although Gayatri 0. ??She describes right big toe as very stiff and difficult to flex. ??She describes other toes curling in. PROCEDURE: The procedure was explained to the patient/caregiver, and informed consent was obtained. Plan today was to inject EHL to help with the stiffness in big toe and divide the dose between tibialis posterior and FDI muscles to help with pronation and curling of the toes, respectively. The patient laid down on bed. Right lower extremity was cleansed with betadine in the usual sterile manner. A 26 gauge needle electrode was used. I had difficulty localizing EHL and tibialis posterior muscles despite use of EMG. Lower doses injected. Muscle Units per site Number of sites Units per muscle Right TP 25 1 25 Right MG 50 1 50 Right LG 50 2 100 Right FDI 50 1 50 Right EHL 25 1 25 EMG-guidance was used during the injection. TOXIN USED: Botox A total of 250 units injected. 50 units wastage. Vial size: 100 units per vial, 3 vials Dilution: 200 units per 1 ml of preservative free saline The patient tolerated the procedure well without complications. The patient was observed for 30 minutes, before being discharged with post procedure instructions. CODING: CPT code: 96807 1 ext, 5 or more muscles Wastage: JW Guidance code: 19435 EMG guidance for chemodenervation J code: Botox J0585 [facility] code: 1930-5446-11 Lot #: [id number] Expiration date: [facility]
--- OUTSIDE RECORDS SUMMARY | 2024-08-06 15:01 | XMS_ITS | Patient Health Record ---
Author Organization [facility] Address [address] [place] [address] Care Team Providers Care Classroom Instructional Aide Name Role Phone Santosh (inactive) , [facility] Primary Care Provider Unavailable Carl Charles Unavailable [phone] OYULA, ARCHANA Unavailable Unavailable Reason For Referral No Information Problems Problem Type SNOMED Code ICD Code Onset Dates Problem Status W/U Status Risk Notes Problem Anemia (285.9) Active confirmed Plan Of Treatment Pending Test Test Name Order Date IRON + IBC (FE) 02/17/2014 FERRITIN 02/17/2014 VITAMIN B12 AND FOLATE 02/17/2014 CBC w DIFF 02/17/2014 Insurance Providers Payer Name Payer Address Payer Phone Subscriber Number Group Number Insured Name Patient Relationship to Insured Coverage Start Date Coverage End Date MED[place]ARE OF [place] [address] RAFAELA JIMÉNEZ [phone] [id number] JEANETTE ALEGRE Self - patient is the insured MEDICAID OF [facility] [address] [place] [address] [id number] JEANETTE ALEGRE Self - patient is the insured
--- OUTSIDE RECORDS SUMMARY | 2024-08-06 15:01 | XMS_ITS | Clinical Summary ---
Author Organization [facility] Address [address] [place] [address] Care Team Providers Care Kitchen Runner Name Role Phone Andria Frost Primary Care [...] 2015 SHINGLES VACCINE (1 of 2) 2015 BMI CHECK/ADVISE 02/06/2024 INFLUENZA (#1) 2024 PNEUMOCOCCAL VACCINE FOR HIGH RISK PATIENTS (#1) 02/21 Care Teams Kitchen Runner Relationship Specialty Start Date End Date Andria Frost PCP - General 02/14/08 Muna Ventura PCP - Desilverizer 02/14/08
--- OUTSIDE RECORDS SUMMARY | 2024-08-06 15:01 | XMS_ITS | Clinical Summary ---
Author Organization [employer] Address 1 [facility] [employer] (deja mi) [place] [address] Care Team Providers Care Oxygen Therapist Name Role Phone Matteo Bangura MD RESIDENT [...] 1 CAPSULE BY MOUTH EVERY DAY Active Encounters Date Type Department Care Team Description 05/14/2024 4:20 PM EDT Office Visit [id number] [place], [place] [id number] Jordon Pal NP Upper respiratory infection, acute [...] 88 05/14/2024 4:29 PM EDT Temperature 36.7 C (98.1 F) 05/14/2024 4:29 PM EDT Respiratory Rate 14 05/14/2024 4:29 PM EDT [...] Adults 18 yrs or above (or HM Modifier)([facility]) 1983 Hepatitis C Virus Infection in Adolescents and Adults: Screening (or Modifier) ([facility]) 1983 LA Screening: Once using ST OP-BANG Questionnaire for Adults with Conditions or high BMI([facility]) 1983 SDOH Screening Reminder: Sonia carr for all adults ([facility]) 1983 DTaP/Tdap/Td Vaccines ([facility]) (1 - Tdap) 02/22/1984 Pneumococcal Vaccination Scr eening: Patients 50+ yrs of age ([facility]) (1 of 2 - PCV) 02/22/1984 Cervical Cancer Screenin 1-65 yrs of age (or Modifier) 1986 Cervical Cancer Screening: P ap every 3 yrs pts age 21-65 1986 Cervical Cancer: Pap Screeni ng with Modifier timing ([facility]) 1986 Cervical Cancer: hrHPV alone or with cotesting Pap for Pts 30-65yrs screening every 5yrs ([facility]) 1986 Colorectal Cancer Screening 45 -75 Yrs (or HM Modifier ) 2010 Colorectal Cancer: FLEXIBLE SIGMOIDOSCOPY Screening every 5 yrs 2010 Colorectal Cancer: Fecal Imm unochemical Test (FIT) Annually [facility] 2010 Colorectal Cancer: High-sens itivity gFOBT Screening Annually [facility] 2010 Colorectal Cancer: Stool Col oguard Screening every 3 yrs 2010 Colorectal Cancer:CT Colonography Screening every 5 yr s 2010 Breast Cancer: Screening Sonia ually age 50-74 yrs (or HM Modifier)([facility]) 2015 Lung Cancer: Screening Annua lly in adults aged 50 to 80 years (or HM Modifiers)([facility]) 2015 Zoster/Shingles Vaccine Seri es Screening: Adults aged 18+ yrs (or HM Modifiers)([facility]) (1 of 2) 2015 COVID-19 Vaccine Screening: Initial Series and Booster Status ([facility]) (2023- season) 2023 Flu Vaccination: Yearly for ages 18mos through 64 years (or Modifier)([facility]) 09/05/2024 Medical Devices Not on file Procedures [...] Result Antigen Test (05/14/2024 4:43 PM EDT) Pathologist [facility] LumiraDX SARS-COV-2 Rapid Result Antigen Test Negative Negative, Invalid, Not Tested, ERRONEOUS SANZ [id number] INTERNAL CONTROLS VALID Yes--Test working appropriately SANZ [id number] Expiration Date 11/26/2024 SANZ [id number] Lot Number [id number] SANZ [id number] LUMIRA TEST BRAND Lumiradx Sars-Cov-2 AG Test SANZ [id number] Other 05/14/2024 4:43 PM EDT Jordon Pal NP POINT OF CARE TEST ORDERABLES Final Result Performing Organization Address [facility]/ZIP Co de Phone Number RAVENWOOD [id number] [address] [place] [address], * Influenza Molecular POCT (05/14/2024 4:42 PM EDT) [facility] POC MOLECULAR INFLUENZA A AGN Negative Negative, Invalid, Not Tested, ERRONEOUS SANZ [id number] POC MOLECULAR INFLUENZA B AGN Negative Negative, Invalid, Not Tested, ERRONEOUS SANZ [id number] INTERNAL CONTROLS VALID Yes--Test working appropriately SANZ [id number] Expiration Date 09/12/2025 SANZ [id number] Lot Number [id number] SANZ [id number] TEST BRAND NAME _ MOLECULAR FLU ID Now Flu SANZ [id number] Other 05/14/2024 4:42 PM EDT Jordon Pal NP POINT OF CARE TEST ORDERABLES Final Result Performing Organization Address [facility]/ZIP Co de Phone Number RAVENWOOD [id number] [address] [place] [phone], * Strep Molecular POCT (05/14/2024 4:41 PM EDT) Pathologist [facility] POC MOLECULAR STREP A Negative Negative, Invalid, Not Tested, ERRONEOUS SANZ [id number] INTERNAL CONTROLS VALID Yes--Test working appropriately YVON [id number] Expiration Date 11/19/2025 YVON [id number] Lot Number [id number] YVON [id number] TEST BRAND NAME_ STREP MOLECULAR ID Now Strep YVON [id number] [facility] 05/14/2024 4:41 PM EDT us Jordon Pal SHOE SPRAYER POINT OF CARE TEST ORDERABLES Final Result YVON [id number] [address] [place] [address], from Last 3 Months Insurance [facility] Care Teams Oxygen Therapist Relationship Specialty Start Date End Date Matteo Bangura MD [address] [place] [address] PCP - General 05/14/24
--- OUTSIDE RECORDS SUMMARY | 2024-08-06 15:01 | XMS_ITS | Clinical Summary ---
Author Organization [facility] ity Address [address] [place] [address] Care Team Providers Care Plastic Frame Inserter Name Role Phone Johann Frost MD Primary [...] Procedure Name Priority Date/Time Associated Diagnosis Comments [facility] SCREENING DIGITAL Routine 09/22/2018 7:52 AM EDT Encounter for screening mammogram for malignant neoplasm of breast from Last 3 Months or Most Recently Relevant to Health Maintenance Results * [facility] SCREENING DIGITAL (09/22/2018 7:52 AM EDT) Anatomical Region Laterality Modality Mammography 09/18/2018 2:54 PM EDT Narrative 09/22/2018 7:[address] [facility] Diagnostic Imaging Department [address] [place], [place] [id number] Patient: SISJEANETTE D.O.B./Age/Sex: 1965 - 53 - F Unit#: [id number] Location/Status: [facility] Mnemonic/Ordering Site: [facility] Ordering Physician: LINDY GRADY MD [facility] Screening Digital - 09/21/18 - 1022 INDICATION: SCREENING COMPARISON: [facility] mammograms dating back to 04/17/2012 TECHNIQUE: CC and MLO views of the breasts were obtained, using full field digital mammography with 3D tomosynthesis views in the MLO projection. Computer aided detection with the [employer] 7.2-H was employed. FINDINGS: The breasts contain scattered fibroglandular tissues. No suspicious masses, suspicious microcalcifications, or areas of architectural distortion are identified. Rare benign-appearing breast calcifications are present bilaterally. There are no secondary signs of breast malignancy. Compared to the prior exam, no adverse interval change. IMPRESSION: No specific mammographic evidence of breast malignancy. Lack of an imaging correlate should not deter or delay biopsy of a clinically significant palpable finding. BI-RADS - Category 2 - Benign finding 3342F, 7025F Annual screening mammography is recommended. Patient entered into a reminder system with a target date for the next mammogram. G0130 / [id number]) , [id number] Dictating Physician: TRENT PIRES MD Electronically Signed by: TRENT PIRES MD Dic Date/Time: 09/22/18 0748 Sign date/Time: 09/22/18 0752 Procedure Note Trent Pires - 01/25/2022 [facility] Diagnostic Imaging Department [address] [place] [address] Patient: JEANETTE CORADO D.O.B./Age/Sex: 1965 - 53 - F Unit#: [id number] Location/Status: [facility] CLI Mnemonic/Ordering Site: [facility] Ordering Physician: LINDY GRADY MD [facility] Screening Digital - 09/21/18 - 1022 INDICATION: SCREENING COMPARISON: [facility] mammograms dating back to 04/17/2012 TECHNIQUE: CC and MLO views of the breasts were obtained, using full field digital mammography with 3D tomosynthesis views in the MLO projection. Computer aided detection with the [employer] 7.2-H was employed. FINDINGS: The breasts contain [...] date for the next mammogram. G0202 / [id number]) , [id number] Dictating Physician: TRENT PIRES MD Electronically Signed by: TRENT PIRES MD Dic Date/Time: 09/22/18 0748 Sign date/Time: 09/22/18 0752 us Lindy Grady MD IMG BI PROCEDURES Final Result from Last 3 Months or Most Recently Relevant to Health Maintenance Care Teams Plastic Frame Inserter Relationship Specialty Start Date End Date Johann Frost MD [address] [place] [address] PCP - General 02/14/08
== END 2024-08-06 14:30 | disposition home or self-care (01) ==
LOC: HO.NEURO 14:29
PROVIDERS: PCP Student in an Organized Health Care Education/Training Program; Visit Provider Physical Medicine & Rehabilitation
DX: G81.11 Spastic hemiplegia affecting right dominant side (principal)
CPT/HCPCS: 64644; 95874; J0585

== ENCOUNTER 2024-09-11 10:46 | Outpatient (AMB) | payer OTHER, SELFPAY ==
--- NOTE | 2024-09-11 10:49 | MHC.OFFVIS ---
Vital Signs 09/11/24 10:52 Height 5 ft 4 in Weight 194 lb BMI 33.3 Intake Visit Reasons: OV - 08/06/24 Botox Follow Up Intake Note: Ghazala Vargas is a 59 year old female who presents today as a follow up for her 08/06/24 Botox injection. Patient states she has had pain improvement but continues to have cramping and contracture of feet and toes. Allergies amoxicillin (From AUGMENTIN) Allergy (Mild, Verified 09/11/24 10:54) HIVES azithromycin (From ZITHROMAX) Allergy (Mild, Verified 09/11/24 10:54) HIVES clavulanic acid (From AUGMENTIN) Allergy (Mild, Verified 09/11/24 10:54) HIVES doxycycline (DOXYCYCLINE) Allergy (Mild, Verified 09/11/24 10:54) HIVES oxycodone (OXYCODONE) Allergy (Mild, Verified 09/11/24 10:54) CHEST PAIN Penicillins (PCN) Allergy (Mild, Verified 09/11/24 10:54) HIVES acetaminophen (From VICODIN) Allergy (Unknown, Verified 09/11/24 10:54) UNKNOWN hydrocodone (From VICODIN) Allergy (Unknown, Verified 09/11/24 10:54) UNKNOWN Medication List - Last Reconciled 09/11/24 by Ghazala Hurd MD baclofen 20 mg (2 x 10 mg) PO .qhs fluticasone propionate 50 mcg/actuation (Flonase Allergy Relief) 1 spray intranasal DAILY hydroxyzine HCl 50 mg PO BEDTIME ipratropium-albuterol 20-100 mcg/actuation (Combivent Respimat) 1 puff inhalation Q6H linaclotide (Linzess) 72 mcg PO DAILY lisinopril 10 mg PO DAILY loratadine (Allergy Relief (loratadine)) 10 mg PO DAILY ondansetron 4 mg PO Q8H oxybutynin chloride 5 mg PO BID venlafaxine ER 150 mg PO DAILY HPI Comments Details: History of tethered cord syndrome. Right leg weaker side and numb. Uses an AFO. Was getting Botox injection from Dr. Teague, last 06/21/2023 per notes and patient[address] Dr. Teague had been injecting 200 units to posterior tibialis, 50 units in medial gastrocnemius, 50 units to soleus, total 300 units. I have explained to patient before that 200 units to posterior tibialis is above recommended maximum of 75 units. Nerve stimulator under Pain Management was adjusted recently, but cannot help all the way to the foot. Injections done by me: 11/07/23, 02/13/24, 05/07/2024, 08/06/24. Last month, patient described the big toe being stiff, unable to bend the big toe, and rest of the toes curling in as well. We hope to inject EHL, tibialis posterior, FDI muscles but I had difficulty localizing EHL and posterior tibialis for the injection. Injected only: 25 units on EHL, 25 units and posterior tibialis. But was able to inject 15 is FDI. And total of 150 units to gastrocnemius muscle. I increased to 2ml dilution. Feels better on calf, no bad cramps on calf. But still crooked on toes - big toe not sticking out. But it would still invert. Had one almost fall but not completely. [facility] Medical History Spastic hemiplegia affecting right dominant side Spasticity De Quervain's tenosynovitis, right Anxiety with depression Chronic GERD Tethered cord syndrome Hypertension Hyperlipidemia Social History Alcohol intake: never Patient Tobacco Use Status: Never used Tobacco Current occupational status: disabled Physical Exam Exam Exam: Right big toe does not stick up anymore. Right 2nd and 3rd digits are more flat. Right 4th and 5th still slightly curled. Gayatri 0 on ankle inversion but inverts spontaneously. Vital Signs: BMI result Body Mass Index 33.3 Assessment & Plan Assessment & Plan (1) Spastic hemiplegia affecting right dominant side: Code(s): G81.11 - Spastic hemiplegia affecting right dominant side Category: Medical Qualifiers: Hemiplegia etiology: non-cerebrovascular Qualified Code(s): G81.11 - Spastic hemiplegia affecting right dominant side (2) Tethered cord syndrome: Code(s): Q06.8 - Other specified congenital malformations of spinal cord Category: Medical Plan This is the best improvement patient has had in years. If we can localize EHL and TP, we will inject again. Increase TP to 50. Increase dose to gastrocnemius. Inject FDI again and EHL same dose. Use 2ml dilution. Muscle Units per site Number of sites Units per muscle Right TP 50 1 50 Right MG 50 2 100 Right LG 50 2 100 Right FDI 50 1 50 Right EHL 25 1 25 Total 225 units. Next injection is Oct 1. Assessment and plan discussed with patient, and patient was agreeable. All questions were answered thoroughly. Ghazala Hurd MD, GLENN Board Certified, [place] Board of Physical Medicine and Rehabilitation (ABPMR) Board Certified, [place] Board of Electrodiagnostic Medicine (ABEM) Coding Level of Care Code Est Pt Level 3 (80689) Diagnoses Spastic hemiplegia of right dominant side due to noncerebrovascular etiology G81.11 Hemiplegia etiology: non-cerebrovascular Tethered cord syndrome Q06.8
[2024-09-11 10:52] VITALS: BMI 33.3
--- OUTSIDE RECORDS SUMMARY | 2024-09-11 11:27 | XMS_ITS | Clinical Summary ---
Author Organization [employer] Address 1 [facility] [place] [address] Care Team Providers Care E Commerce Marketing Analyst Name Role Phone Matteo Bangura MD RESIDENT [...] 1 CAPSULE BY MOUTH EVERY DAY Active Social History Tobacco Use Types Packs/Day [...] Adults 18 yrs or above (or HM Modifier)([facility]) 1983 Hepatitis C Virus Infection in Adolescents and Adults: Screening (or Modifier) ([facility]) 1983 LA Screening: Once using ST OP-BANG Questionnaire for Adults with Conditions or high BMI([facility]) 1983 SDOH Screening Reminder: Sonia carr for all adults ([facility]) 1983 DTaP/Tdap/Td Vaccines ([facility]) (1 - Tdap) 02/22/1984 Pneumococcal Vaccination Scr eening: Patients 50+ yrs of age ([facility]) (1 of 2 - PCV) 02/22/1984 Cervical Cancer Screenin 1-65 yrs of age (or Modifier) 1986 Cervical Cancer Screening: P ap every 3 yrs pts age 21-65 1986 Cervical Cancer: Pap Screeni ng with Modifier timing ([facility]) 1986 Cervical Cancer: hrHPV alone or with cotesting Pap for Pts 30-65yrs screening every 5yrs ([facility]) 1986 Colorectal Cancer Screening 45 -75 Yrs (or HM Modifier ) 2010 Colorectal Cancer: FLEXIBLE SIGMOIDOSCOPY Screening every 5 yrs 2010 Colorectal Cancer: Fecal Imm unochemical Test (FIT) Annually [facility] 2010 Colorectal Cancer: High-sens itivity gFOBT Screening Annually [facility] 2010 Colorectal Cancer: Stool Col oguard Screening every 3 yrs 2010 Colorectal Cancer:CT Colonography Screening every 5 yr s 2010 Breast Cancer: Screening Sonia ually age 50-74 yrs (or HM Modifier)([facility]) 2015 Lung Cancer: Screening Annua lly in adults aged 50 to 80 years (or HM Modifiers)([facility]) 2015 Zoster/Shingles Vaccine Seri es Screening: Adults aged 18+ yrs (or HM Modifiers)([facility]) (1 of 2) 2015 COVID-19 Vaccine Screening: Initial Series and Booster Status ([facility]) (2023- season) 2023 Flu Vaccination: Yearly for ages 18mos through 64 years (or Modifier)([facility]) 09/05/2024 Medical Devices Not on file Insurance [facility] Care Teams E Commerce Marketing Analyst Relationship Specialty Start Date End Date Matteo Bangura MD [address] [place] [address] PCP - General 05/14/24
--- OUTSIDE RECORDS SUMMARY | 2024-09-11 11:27 | XMS_ITS | Patient Health Record ---
Author Organization [facility] Address [address] [place] [address] Care Team Providers Care Amr Physician Name Role Phone Santosh (inactive) , [facility] Primary Care Provider Unavailable Carl Charles Unavailable [phone] OYULA, ARCHANA Unavailable Unavailable Reason For Referral [...] Start Date Coverage End Date [place] [address] RAFAELA JIMÉNEZ [phone] [id number] JEANETTE ALEGRE Self - patient is the insured MEDICAID OF [facility] [address] [place] [address] [phone] [id number] JEANETTE ALEGRE Self - patient is the insured
--- OUTSIDE RECORDS SUMMARY | 2024-09-11 11:27 | XMS_ITS | Clinical Summary ---
Author Organization [facility] Address [address] [place] [address] Care Team Providers Care Hospital Admissions Officer Name Role Phone Andria Frsot Primary Care Provider Muna Lawrence Unavailable Unavailable [...] HIGH RISK PATIENTS (#1) 02/21 Care Teams Hospital Admissions Officer Relationship Specialty Start Date End Date Andria Frost PCP - General 02/14/08 Muna Ventura PCP - Solar Photovoltaic Systems Engineer 02/14/08
--- OUTSIDE RECORDS SUMMARY | 2024-09-11 11:27 | XMS_ITS | Clinical Summary ---
Author Organization [facility] ity Address [address] [place] [address] Care Team Providers Care Structural Analyst Name Role Phone Johann Frost MD Primary [...] Vaccine ( - 2023-2 5 season) 2023 Depression Screening 02/06/2024 Influenza Vaccine (#1) 2024 RSV Immunization Adult Patie nts (1 [...] Procedure Name Priority Date/Time Associated Diagnosis Comments [facility] SCREENING DIGITAL Routine 09/22/2018 7:52 AM EDT Encounter for screening mammogram for malignant neoplasm of breast from Last 3 Months or Most Recently Relevant to Health Maintenance Results * [facility] SCREENING DIGITAL (09/22/2018 7:52 AM EDT) Anatomical Region Laterality Modality Mammography 09/18/2018 2:54 PM EDT Narrative 09/22/2018 7:52 AM EDT [facility] Diagnostic Imaging Department [address] [place], [place] [address] Patient: CORADOJEANETTE Pascal /Age/Sex: 1965 - 53 - F Unit#: [id number] Location/Status: [facility] CLI Mnemonic/Ordering Site: [facility] Ordering Physician: LINDY GRADY MD [facility] Screening Digital - 09/21/18 - 1022 INDICATION: SCREENING COMPARISON: [facility] mammograms dating back to 04/17/2012 TECHNIQUE: CC and MLO views of the breasts were obtained, using full field digital mammography with 3D tomosynthesis views in the MLO projection. Computer aided detection with the [employer] 7.2-H was employed. FINDINGS: The breasts contain [...] target date for the next mammogram. G0202 [id number]) , [id number] Dictating Physician: TRENT PIRES MD Electronically Signed by: TRENT PIRES MD Dic Date/Time: 09/22/18 0748 Sign date/Time: 09/22/18 0755 Procedure Note Trent Pires - 01/25/2022 [facility] Diagnostic Imaging Department [address] [place] [address] Patient: JEANETTE CORADO Shahrzad Leonard/Age/Sex: 1965 - 53 - F Unit#: [id number] Location/Status: [facility] Mnemonic/Ordering Site: [facility] Ordering Physician: LINDY GRADY MD [facility] Screening Digital - 09/21/18 - 1022 INDICATION: SCREENING COMPARISON: [facility] mammograms dating back to 04/17/2012 TECHNIQUE: CC and MLO views of the breasts were obtained, using full field digital mammography with 3D tomosynthesis views in the MLO projection. Computer aided detection with the [employer] 7.2-H was employed. FINDINGS: The breasts contain [...] a target date for the next mammogram. G0418 / [id number]) , [id number] Dictating Physician: TRENT PIRES MD Electronically Signed by: TRENT PIRES MD Dic Date/Time: 09/22/18 0748 Sign date/Time: 09/22/18 0757 Lindy Grady MD IMG BI PROCEDURES Final Result from Last 3 Months or Most Recently Relevant to Health Maintenance Care Teams Structural Analyst Relationship Specialty Start Date End Date Johann Frost MD [address] [place] [address] PCP - General 02/14/08
== END 2024-09-11 11:14 | disposition home or self-care (01) ==
LOC: HO.HOS 10:47
PROVIDERS: PCP Student in an Organized Health Care Education/Training Program; Visit Provider Physical Medicine & Rehabilitation
DX: G81.11 Spastic hemiplegia affecting right dominant side (principal); Q06.8 Other specified congenital malformations of spinal cord
CPT/HCPCS: 99213

== ENCOUNTER → 2024-09-11 10:46 | Outpatient (BNVA) | payer OTHER, SELFPAY | PROVIDERS: PCP Student in an Organized Health Care Education/Training Program; Visit Provider Physical Medicine & Rehabilitation | DX: G81.11 Spastic hemiplegia affecting right dominant side (principal); Q06.8 Other specified congenital malformations of spinal cord | CPT/HCPCS: 99212 ==

== ENCOUNTER → 2024-11-05 12:20 | Outpatient (BNV) | payer OTHER, SELFPAY | PROVIDERS: PCP Student in an Organized Health Care Education/Training Program; Visit Provider Physical Medicine & Rehabilitation | DX: G81.11 Spastic hemiplegia affecting right dominant side (principal) | CPT/HCPCS: 64644; 95874 ==

== ENCOUNTER 2024-11-05 14:43 | Outpatient (REF) | payer OTHER, SELFPAY ==
--- NOTE | 2024-11-05 12:20 | EMG_ITS ---
PROCEDURE PERFORMED: Botulinum toxin chemodenervation DIAGNOSIS: spastic hemiparesis ICD10: G81.11 affecting right dominant side Injections done by nv: 11/07/23, 02/13/24, 05/07/2024, 08/06/24. TOXIN USED: Botox PROCEDURE: The procedure was explained to the patient/caregiver, and informed consent was obtained. The patient laid down on bed. Right leg was cleansed with betadine in the usual sterile manner. A 26 gauge needle electrode was used. Muscle Units per site Number of sites Units per muscle Right TP 50 1 50 Right MG 50 1 50 Right LG 50 2 100 Right FDI 50 1 50 Right EHL 25 1 25 EMG-guidance was used during the injection. A total of 275 units injected. 25 units wastage. Vial size: 100 units per vial Dilution: 100 units per 2 ml of preservative free saline The patient tolerated the procedure well without complications. The patient was observed for 30 minutes, before being discharged with post procedure instructions. CODING: CPT code: 00108 1 ext, 5 or more muscles Wastage: Guidance code: 13989 EMG guidance for chemodenervation J code: Botox J0585 [facility] code: 2517-0792-26 Lot #: [id number], [id number], [id number] Expiration date: x2 vials, MTDD
--- OUTSIDE RECORDS SUMMARY | 2024-11-05 15:55 | XMS_ITS | Clinical Summary ---
Author Organization [facility] ity Address [address] [place] [address] Care Team Providers Care Club Licensee Name Role Phone Johann Frost MD Primary [...] 2) 2015 Breast Cancer Screening 09/22/2020 09/22/2018 Depression Screening 02/06/2024 COVID-19 Vaccine ( - 2023-2 5 season) 2024 Influenza Vaccine (#1) 2024 RSV Immunization Adult [...] Procedure Name Priority Date/Time Associated Diagnosis Comments [facility] SCREENING DIGITAL Routine 09/22/2018 7:52 AM EDT Encounter for screening mammogram for malignant neoplasm of breast from Last 3 Months or Most Recently Relevant to Health Maintenance Results * [facility] SCREENING DIGITAL (09/22/2018 7:52 AM EDT) Anatomical Region Laterality Modality Mammography 09/18/2018 2:54 PM EDT Narrative 09/22/2018 7:52 AM EDT [facility] Diagnostic Imaging Department [address] [place], [place] [id number] Patient: CORADOJEANETTE Pascal /Age/Sex: 1965 - 53 - F Unit#: [id number] Location/Status: [facility] CLI Mnemonic/Ordering Site: [facility] Ordering Physician: LINDY GRADY MD [facility] Screening Digital - 09/21/18 - 1022 INDICATION: SCREENING COMPARISON: [facility] mammograms dating back to 04/17/2012 TECHNIQUE: CC and MLO views of the breasts were obtained, using full field digital mammography with 3D tomosynthesis views in the MLO projection. Computer aided detection with the [employer] 7.2-H was employed. FINDINGS: The breasts contain [...] target date for the next mammogram. G0202 [id number]) , [id number] Dictating Physician: TRENT PIRES MD Electronically Signed by: TRENT PIRES MD Dic Date/Time: 09/22/18 0748 Sign date/Time: 09/22/18 0759 Procedure Note Trent Pires - 01/25/2022 [facility] Diagnostic Imaging Department [address] [place] [address] Patient: JEANETTE OCRADO Shahrzad Leonard/Age/Sex: 1965 - 53 - F Unit#: [id number] Location/Status: [facility]Ordering Site: [facility] Ordering Physician: LINDY GRADY MD [facility] Screening Digital - 09/21/18 - 1022 INDICATION: SCREENING COMPARISON: [facility] mammograms dating back to 04/17/2012 TECHNIQUE: CC and MLO views of the breasts were obtained, using full field digital mammography with 3D tomosynthesis views in the MLO projection. Computer aided detection with the [employer] 7.2-H was employed. FINDINGS: The breasts contain [...] a target date for the next mammogram. G0807 / [id number]) , [id number] Dictating Physician: TRENT PIRES MD Electronically Signed by: TRENT PIRES MD Dic Date/Time: 09/22/18 0748 Sign date/Time: 09/22/18 0750 Lindy Grady MD IMG BI PROCEDURES Final Result from Last 3 Months or Most Recently Relevant to Health Maintenance Care Teams Club Licensee Relationship Specialty Start Date End Date Johann Frost MD [address] [place] [address] PCP - General 02/14/08
--- OUTSIDE RECORDS SUMMARY | 2024-11-05 15:55 | XMS_ITS | Clinical Summary ---
Author Organization [employer] Address [address] [facility] [place] [address] Care Team Providers Care Beading Machine Operator Name Role Phone Matteo Bangura MD RESIDENT [...] Adults 18 yrs or above (or HM Modifier)([facility]) 1983 Hepatitis C Virus Infection in Adolescents and Adults: Screening (or Modifier) ([facility]) 1983 LA Screening: Once using ST OP-BANG Questionnaire for Adults with Conditions or high BMI([facility]) 1983 SDOH Screening Reminder: Sonia carr for all adults ([facility]) 1983 DTaP/Tdap/Td Vaccines ([facility]) (1 - Tdap) 02/22/1984 Pneumococcal Vaccination Scr eening: Patients 50+ yrs of age ([facility]) (1 of 2 - PCV) 02/22/1984 Cervical Cancer Screenin 1-65 yrs of age (or Modifier) 1986 Cervical Cancer Screening: P ap every 3 yrs pts age 21-65 1986 Cervical Cancer: Pap Screeni ng with Modifier timing ([facility]) 1986 Cervical Cancer: hrHPV alone or with cotesting Pap for Pts 30-65yrs screening every 5yrs ([facility]) 1986 Colorectal Cancer Screening 45 -75 Yrs (or HM Modifier ) 2010 Colorectal Cancer: FLEXIBLE SIGMOIDOSCOPY Screening every 5 yrs 2010 Colorectal Cancer: Fecal Imm unochemical Test (FIT) Annually [facility] 2010 Colorectal Cancer: High-sens itivity gFOBT Screening Annually [facility] 2010 Colorectal Cancer: Stool Col oguard Screening every 3 yrs 2010 Colorectal Cancer:CT Colonography Screening every 5 yr s 2010 Breast Cancer: Screening Sonia ually age 50-74 yrs (or HM Modifier)([facility]) 2015 Lung Cancer: Screening Annua lly in adults aged 50 to 80 years (or HM Modifiers)([facility]) 2015 Zoster/Shingles Vaccine Seri es Screening: Adults aged 18+ yrs (or HM Modifiers)([facility]) (1 of 2) 2015 Flu Vaccination: Yearly for ages 18mos through 64 years (or Modifier)([facility]) 09/05/2024 COVID-19 Vaccine Screening: Initial Series and Booster Status ([facility]) (2023- season) 2024 Medical Devices Not on file Insurance [facility] Care Teams Beading Machine Operator Relationship Specialty Start Date End Date Matteo Bangura MD [address] [place] [address] PCP - General 05/14/24
== END 2024-11-05 14:44 | disposition home or self-care (01) ==
LOC: HO.NEURO 14:43
PROVIDERS: PCP Student in an Organized Health Care Education/Training Program; Visit Provider Physical Medicine & Rehabilitation
DX: G81.11 Spastic hemiplegia affecting right dominant side (principal)
CPT/HCPCS: 64644; 95874; J0585

== ENCOUNTER 2024-12-12 09:18 | Outpatient (AMB) | payer OTHER, SELFPAY ==
--- NOTE | 2024-12-12 09:27 | MHC.OFFVIS ---
Vital Signs 12/12/24 09:29 Height 5 ft 4 in Weight 185 lb BMI 31.8 Intake Visit Reasons: OV- Botox inj 11/05/24 follow up Intake Note: Ghazala is a 59 year old female who presents today as a follow up from her Botox injection, 11/05/24. Patient states that her right foot feels tight and mild tingling. Allergies amoxicillin (From AUGMENTIN) Allergy (Mild, Verified 09/11/24 10:54) HIVES azithromycin (From ZITHROMAX) Allergy (Mild, Verified 09/11/24 10:54) HIVES clavulanic acid (From AUGMENTIN) Allergy (Mild, Verified 09/11/24 10:54) HIVES doxycycline (DOXYCYCLINE) Allergy (Mild, Verified 09/11/24 10:54) HIVES oxycodone (OXYCODONE) Allergy (Mild, Verified 09/11/24 10:54) CHEST PAIN Penicillins (PCN) Allergy (Mild, Verified 09/11/24 10:54) HIVES acetaminophen (From VICODIN) Allergy (Unknown, Verified 09/11/24 10:54) UNKNOWN hydrocodone (From VICODIN) Allergy (Unknown, Verified 09/11/24 10:54) UNKNOWN HPI Comments Details: History of tethered cord syndrome. Right leg weaker side and numb. Uses an AFO. Was getting Botox injection from Dr. Teague, last 06/21/2023 per notes [address] patient[address] Dr[address] Teague had been injecting 200 units to posterior tibialis, 50 units in medial gastrocnemius, 50 units to soleus, total 300 units. I have explained to patient before that 200 units to posterior tibialis is above recommended maximum of 75 units. Nerve stimulator under Pain Management was adjusted recently, but cannot help all the way to the foot. Injections done by me: 11/07/23, 02/13/24, 05/07/2024, 08/06/24, 11/05/2024August injections seem to have produce the best results. November injection seems to have caused patient to alla too much. She is unable to put her feet flat or has difficulty wearing AFO. She is happy though that she has some movement on her toes. She has less numbness and no more pain on her lower leg. She is sleeping better at night without the severe pain waking her up. She did fall yesterday, she falls frequently with or without injections. She has a bruise in her lower leg. Otherwise on hurt. [facility] Medical History Spastic hemiplegia affecting right dominant side Spasticity De Quervain's tenosynovitis, right Anxiety with depression Chronic GERD Tethered cord syndrome Hypertension Hyperlipidemia Social History Alcohol intake: never Patient Tobacco Use Status: Never used Tobacco Current occupational status: disabled Physical Exam Exam Exam: Right big toe does extend upwards, more flat. Right 2nd and 3rd digits remain flat. Right 4th and 5th are much less curled/flexed. I do notice that the right foot is slightly more everted. Gayatri 0 on ankle inversion but inverts spontaneously. Gayatri 0 on dorsiflexion/plantar flexion, and I can passively put it to neutral without pain. No clonus. Vital Signs: BMI result Body Mass Index 31.8 Assessment & Plan Assessment & Plan (1) Spastic hemiplegia affecting right dominant side: Code(s): G81.11 - Spastic hemiplegia affecting right dominant side Category: Medical Qualifiers: Hemiplegia etiology: non-cerebrovascular Qualified Code(s): G81.11 - Spastic hemiplegia affecting right dominant side (2) Tethered cord syndrome: Code(s): Q06.8 - Other specified congenital malformations of spinal cord Category: Medical Plan Right foot is now everting too much, opposite to what she was originally doing. We will decrease dose on tibialis posterior from 50 to 25 units. Maintain the same dose on all other muscles. This is pretty much returning to dosing back in August that produced the best results. Next botulinum toxin injection would be on 02/07, 15:30, total of 250 units. Assessment and plan discussed with patient, and patient was agreeable. All questions were answered thoroughly. Ghazala Hurd MD, GLENN Board Certified, [place] Board of Physical Medicine and Rehabilitation (ABPMR) Board Certified, [place] Board of Electrodiagnostic Medicine (ABEM) Coding Level of Care Code Est Pt Level 3 (75928) Diagnoses Spastic hemiplegia of right dominant side due to noncerebrovascular etiology G81.11 Hemiplegia etiology: non-cerebrovascular Tethered cord syndrome Q06.8
[2024-12-12 09:29] VITALS: BMI 31.8
--- OUTSIDE RECORDS SUMMARY | 2024-12-12 10:29 | XMS_ITS | Clinical Summary ---
Author Organization [facility] ity Address [address] [place] [address] Care Team Providers Care Printed Circuit Board Panels Plater Name Role Phone Johann Frost MD Primary [...] Procedure Name Priority Date/Time Associated Diagnosis Comments [facility] SCREENING DIGITAL Routine 09/22/2018 7:52 AM EDT Encounter for screening mammogram for malignant neoplasm of breast from Last 3 Months or Most Recently Relevant to Health Maintenance Results * [facility] SCREENING DIGITAL (09/22/2018 7:52 AM EDT) Anatomical Region Laterality Modality Mammography 09/18/2018 2:54 PM EDT Narrative 09/22/2018 7:[address] [facility] Diagnostic Imaging Department [address] [place], [place] [address] Patient: CORADOJEANETTE Pascal /Age/Sex: 1965 - 53 - F Unit#: [id number] Location/Status: [facility] CLI Mnemonic/Ordering Site: [facility] Ordering Physician: LINDY GRADY MD [facility] Screening Digital - 09/21/18 - 1022 INDICATION: SCREENING COMPARISON: [facility] mammograms dating back to 04/17/2012 TECHNIQUE: CC and MLO views of the breasts were obtained, using full field digital mammography with 3D tomosynthesis views in the MLO projection. Computer aided detection with the [employer] 7.2-H was employed. FINDINGS: The breasts contain [...] target date for the next mammogram. G0202 [id number]) , [id number] Dictating Physician: TRENT PIRES MD Electronically Signed by: TRENT PIRES MD Dic Date/Time: 09/22/18 0748 Sign date/Time: 09/22/18 0753 Procedure Note Trent Pires - 01/25/2022 [facility] Diagnostic Imaging Department [address] [place] [address] Patient: JEANETTE CORADO Shahrzad Leonard/Age/Sex: 1965 - 53 - F Unit#: [id number] Location/Status[facility] Mnemonic/Ordering Site: [facility] Ordering Physician: LINDY GRADY MD [facility] Screening Digital - 09/21/18 - 1022 INDICATION: SCREENING COMPARISON: [facility] mammograms dating back to 04/17/2012 TECHNIQUE: CC and MLO views of the breasts were obtained, using full field digital mammography with 3D tomosynthesis views in the MLO projection. Computer aided detection with the [employer] 7.2-H was employed. FINDINGS: The breasts contain [...] a target date for the next mammogram. G0483 / 11390) , [id number] Dictating Physician: TRENT PIRES MD Electronically Signed by: TRENT PIRES MD Dic Date/Time: 09/22/18 0748 Sign date/Time: 09/22/18 0759 Lindy Grady MD IMG BI PROCEDURES Final Result from Last 3 Months or Most Recently Relevant to Health Maintenance Care Teams Printed Circuit Board Panels Plater Relationship Specialty Start Date End Date Johann Frost MD [address] [place] [address] PCP - General 02/14/08
--- OUTSIDE RECORDS SUMMARY | 2024-12-12 10:29 | XMS_ITS | Patient Health Record ---
Author Organization [facility] Address [address] [place] [address] Care Team Providers Care File Clerk Data Entry Name Role Phone Santosh (inactive) , [facility] Primary Care Provider Unavailable Carl Charles Unavailable [phone] OYULA, ARCHANA Unavailable Unavailable Reason For Referral No Information Problems Problem Type SNOMED Code ICD Code Onset Dates Problem Status W/U Status Risk Notes Problem Anemia (112742519) Anemia (285.9) Active confirmed Plan Of Treatment Pending Test Test Name Order Date IRON + IBC (FE) 02/17/2014 FERRITIN 02/17/2014 VITAMIN B12 AND FOLATE 02/17/2014 CBC w DIFF 02/17/2014 Insurance Providers Payer Name Payer Address Payer Phone Subscriber Number Group Number Insured Name Patient Relationship to Insured Coverage Start Date Coverage End Date MEDICARE OF [place] [address] RAFAELA JIMÉNEZ [id number] JEANETTE ALEGRE Self - patient is the insured MEDICAID OF [facility] [address] [place] [address] [id number] JEANETTE ALEGRE Self - patient is the insured
--- OUTSIDE RECORDS SUMMARY | 2024-12-12 10:29 | XMS_ITS | Clinical Summary ---
Author Organization [employer] Address [address] [facility] [place] [address] Care Team Providers Care Fuel Pilot Engineer Name Role Phone Matteo Bangura MD [facility]IDENT [...] [facility] 1983 SDOH Screening Reminder: Sonia carr for all adults ([facility]) 1983 DTaP/Tdap/Td Vaccines ([facility]) (1 - Tdap) 02/22/1984 Pneumococcal Vaccination [...] Cancer: Fecal Imm unochemical Test (FIT) Annually [facility] 2010 Colorectal Cancer: High-sens itivity [...] Modifiers)([facility]) (1 of 2) 2015 Flu Vaccination: Yearly for ages 18mos through 64 years (or Modifier)([facility]) 09/05/2024 COVID-19 Vaccine Screening: Initial Series and Booster Status ([facility]) (2024- season) 2024 Medical Devices Not on file Insurance [facility] Care Teams Fuel Pilot Engineer Relationship Specialty Start Date End Date Matteo Bangura MD [address] [place] [address] PCP - General 05/14/24
== END 2024-12-12 11:22 | disposition home or self-care (01) ==
LOC: HO.HOS 09:18
PROVIDERS: PCP Student in an Organized Health Care Education/Training Program; Visit Provider Physical Medicine & Rehabilitation
DX: G81.11 Spastic hemiplegia affecting right dominant side (principal); Q06.8 Other specified congenital malformations of spinal cord
CPT/HCPCS: 99213

== ENCOUNTER → 2024-12-12 09:18 | Outpatient (BNVA) | payer OTHER, SELFPAY | PROVIDERS: PCP Student in an Organized Health Care Education/Training Program; Visit Provider Physical Medicine & Rehabilitation | DX: G81.11 Spastic hemiplegia affecting right dominant side (principal); Q06.8 Other specified congenital malformations of spinal cord | CPT/HCPCS: 99212 ==